=== PATIENT | female | born 1955 | race Caucasian/White ===

== ENCOUNTER 2024-09-16 09:52 | Inpatient (IN) | payer OTHER ==
[~2024-09-16] VITALS: Ht 162.6 cm; Wt 63.0 kg
[2024-09-16 11:02] LABS: Urine Bacteria FEW /hpf (None Seen); Urine Blood 1+ /uL (Negative); Urine Clarity Clear (Clear); Urine Color Light-Yellow (Yellow); Urine Protein, UAD 2+ (Negative); Urine Specific Gravity 1.018 (1.001-1.035); Urine Urobilinogen Normal (Negative); Urine WBC 62 /hpf (0 - 5); Urine pH 5.5 (5.0-9.0)
[2024-09-16 11:10] LABS: Basophils # (auto) 0 10 ^3/uL (0-0.2); Eosinophils # (auto) 0.1 10 ^3/uL (0-0.8); Eosinophils % (auto) 0.7 % (0.0-7.0); Hemoglobin 8.1 g/dL (12.2-16.2); Mean Corpuscular Volume 87.2 fL (80.0-100.0); Neutrophils # (auto) 7.1 10 ^3/uL (1.6-8.6); Platelet Count (auto) 146 10^3/uL (140-450); White Blood Cell 8.6 10^3/uL (4.4-10.8)
[2024-09-16 11:12] VITALS: PULSE 99; RESP 16; O2SAT 98
[2024-09-16 11:13] LABS: Basophils % (auto) 0.3 % (0.0-2.0); Hematocrit 23.1 % (36.0-46.0); Lymphocytes # (auto) 0.8 10 ^3/uL (0.4-5.4); Lymphocytes % (auto) 8.8 % (10.0-50.0); Mean Corpuscular Hemoglobin 30.7 pg (28.0-32.0); Mean Corpuscular Hgb Conc. 35.2 g/dL (32.0-36.0); Monocytes # (auto) 0.7 10 ^3/uL (0-1.3); Monocytes % (auto) 7.7 % (0.0-12.0); Neutrophils % (auto) 82.5 % (37.0-80.0); Red Blood Cells 2.65 10^6/uL (4.0-5.20); Red Cell Distribution Width 14.6 % (11.8-14.3)
[2024-09-16 11:18] LABS: Albumin 4.1 g/dL (3.2-4.8); Alkaline Phosphatase 77 U/L (46-116); Anion Gap 12 (5-15); Aspartate Aminotransferase 14 U/L (13-40); Blood Urea Nitrogen 66 mg/dL (9-23); Carbon Dioxide 23 mmol/L (20-31); Chloride 92 mmol/L (98-107); Glucose 112 mg/dL (74-106); Potassium 4.1 mmol/L (3.5-5.1); Sodium 127 mmol/L (136-145)
[2024-09-16 11:19] LABS: Bilirubin, Total 0.5 mg/dL (0.2-1.0); Total Protein 9.7 g/dL (5.7-8.2)
[2024-09-16 11:20] LABS: Alanine Aminotransferase < 9 U/L (7-40)
[2024-09-16 11:22] LABS: Calcium 18.2 mg/dL (8.7-10.4)
[2024-09-16] MEDS: ONDANSETRON HCL 4 MG/2 ML VIAL IV ONE (11:22)
[2024-09-16] MEDS: SODIUM CHLORIDE 0.9% 1,000 ML IVB ONE (11:22)
[2024-09-16] MEDS: SODIUM CHLORIDE 0.9% 1,000 ML IV ONE (15:14)
[2024-09-16] MEDS: cefTRIAXone 1GM/50ML D5W 50 ML IV ONE (15:15)
[2024-09-16] MEDS: CALCITONIN 400unit/2ml Vial (200unit/ml) IM SCH (15:41)
[2024-09-16 15:55] LABS: Alkaline Phosphatase 73 U/L (46-116); Anion Gap 9 (5-15); Aspartate Aminotransferase 13 U/L (13-40); BUN/Creatinine Ratio 12.2 (10.0-20.0); Carbon Dioxide 23 mmol/L (20-31); Chloride 95 mmol/L (98-107); Glucose 153 mg/dL (74-106); Sodium 127 mmol/L (136-145)
[2024-09-16 15:56] LABS: Bilirubin, Total 0.4 mg/dL (0.2-1.0); Total Protein 9.2 g/dL (5.7-8.2)
[2024-09-16 16:09] LABS: Alanine Aminotransferase < 9 U/L (7-40); Blood Urea Nitrogen 56 mg/dL (9-23)
[2024-09-16 16:10] LABS: Calcium 17.6 mg/dL (8.7-10.4)
[2024-09-16] MEDS ORDERED: HYDROmorphone HCL 2 MG/ML VL/or syr IV PRN (16:45)
[2024-09-16 17:20] VITALS: PULSE 112; RESP 14; O2SAT 96
[2024-09-16 19:38] VITALS: PULSE 109; RESP 14; O2SAT 95
[2024-09-16 19:55] LABS: Chloride 99 mmol/L (98-107); Potassium 3.9 mmol/L (3.5-5.1); Sodium 131 mmol/L (136-145)
[2024-09-16 19:56] LABS: Anion Gap 12 (5-15); Carbon Dioxide 20 mmol/L (20-31)
[2024-09-16 20:01] LABS: BUN/Creatinine Ratio 13.7 (10.0-20.0); Blood Urea Nitrogen 58 mg/dL (9-23); Glucose 116 mg/dL (74-106)
[2024-09-16 20:23] LABS: Calcium 14.4 mg/dL (8.7-10.4)
[2024-09-16] MEDS: SODIUM BICARB 50mEq/50ml Vial 50 ML in SOD CHL 0.45% 1,000 ML IV SCH (22:00)
[2024-09-16] MEDS: SODIUM CHLOR 0.9% PF (SALINE LOCK) 10ML VIAL/SYR IV SCH (22:07)
[2024-09-16 22:50] VITALS: PULSE 110; RESP 15; O2SAT 96
[2024-09-16 23:26] LABS: Chloride 101 mmol/L (98-107); Potassium 4.2 mmol/L (3.5-5.1); Sodium 131 mmol/L (136-145)
[2024-09-16 23:27] LABS: Anion Gap 9 (5-15); Carbon Dioxide 21 mmol/L (20-31)
[2024-09-16 23:32] LABS: BUN/Creatinine Ratio 12.9 (10.0-20.0); Blood Urea Nitrogen 55 mg/dL (9-23); Glucose 107 mg/dL (74-106)
[2024-09-17] VITALS (17 sets, daily range): BP systolic 107–129; BP diastolic 54–69; PULSE 95–110; RESP 14–19; TEMP 98–98.8; O2SAT 94–98
[2024-09-17 00:08] LABS: Calcium 14.4 mg/dL (8.7-10.4)
[2024-09-17] MEDS: ONDANSETRON HCL 4 MG/2 ML VIAL IV PRN (01:12)
[2024-09-17 03:41] LABS: Basophils # (auto) 0 10 ^3/uL (0-0.2); Eosinophils # (auto) 0.1 10 ^3/uL (0-0.8); Hematocrit 18.9 % (36.0-46.0); Lymphocytes # (auto) 0.5 10 ^3/uL (0.4-5.4); Monocytes # (auto) 0.5 10 ^3/uL (0-1.3); Monocytes % (auto) 6.8 % (0.0-12.0); Red Cell Distribution Width 14.3 % (11.8-14.3)
[2024-09-17 03:42] LABS: Basophils % (auto) 0.4 % (0.0-2.0); Eosinophils % (auto) 0.8 % (0.0-7.0); Lymphocytes % (auto) 6.6 % (10.0-50.0); Mean Corpuscular Hemoglobin 31.6 pg (28.0-32.0); Mean Corpuscular Hgb Conc. 36.1 g/dL (32.0-36.0); Mean Corpuscular Volume 87.4 fL (80.0-100.0); Neutrophils # (auto) 6.4 10 ^3/uL (1.6-8.6); Neutrophils % (auto) 85.4 % (37.0-80.0); Platelet Count (auto) 94 10^3/uL (140-450); Red Blood Cells 2.16 10^6/uL (4.0-5.20); White Blood Cell 7.5 10^3/uL (4.4-10.8)
[2024-09-17 03:59] LABS: Chloride 102 mmol/L (98-107); Sodium 132 mmol/L (136-145)
[2024-09-17 04:00] LABS: Anion Gap 8 (5-15); Carbon Dioxide 22 mmol/L (20-31)
[2024-09-17 04:05] LABS: Blood Urea Nitrogen 54 mg/dL (9-23); Glucose 107 mg/dL (74-106)
[2024-09-17 04:08] LABS: Hemoglobin 6.8 g/dL (12.2-16.2)
[2024-09-17 04:11] LABS: Platelet Estimate Decreased
[2024-09-17] MEDS: cefTRIAXone 1GM/50ML D5W 50 ML IV SCH (09:09)
[2024-09-17 11:47] LABS: Anion Gap 10 (5-15); Carbon Dioxide 23 mmol/L (20-31); Chloride 99 mmol/L (98-107); Potassium 3.8 mmol/L (3.5-5.1); Sodium 132 mmol/L (136-145)
[2024-09-17 11:53] LABS: BUN/Creatinine Ratio 12.7 (10.0-20.0); Blood Urea Nitrogen 50 mg/dL (9-23); Glucose 146 mg/dL (74-106)
[2024-09-17 12:09] LABS: Calcium 13.9 mg/dL (8.7-10.4)
[2024-09-17] MEDS: BUMETANIDE 2.5mg/10ml (0.25 mg/ml) INJ IV ONE (14:00)
[2024-09-17] MEDS: POTASSIUM EFFERVESENT TAB 25 MEQ PO ONE (14:00)
[2024-09-17 16:19] LABS: Hematocrit 24.6 % (36.0-46.0); Hemoglobin 8.4 g/dL (12.2-16.2)
[2024-09-17] MEDS: CALCITONIN 400unit/2ml Vial (200unit/ml) SC SCH (16:30)
[2024-09-17 16:32] LABS: Creatinine, Urine 30.26 mg/dL (30.0-125.0); Creatinine, Urine 30.78 mg/dL (30.0-125.0); Urine Protein/Creatinine Ratio 7.37
[2024-09-18] VITALS (16 sets, daily range): BP systolic 121–145; BP diastolic 61–114; PULSE 93–108; RESP 16–24; TEMP 97.7–99; O2SAT 90–97
[2024-09-18 05:51] LABS: Basophils # (auto) 0 10 ^3/uL (0-0.2); Basophils % (auto) 0.3 % (0.0-2.0); Eosinophils # (auto) 0 10 ^3/uL (0-0.8); Eosinophils % (auto) 0.6 % (0.0-7.0); Hemoglobin 7.9 g/dL (12.2-16.2); Lymphocytes # (auto) 0.4 10 ^3/uL (0.4-5.4); Lymphocytes % (auto) 6.3 % (10.0-50.0); Mean Corpuscular Hgb Conc. 34.9 g/dL (32.0-36.0); Monocytes # (auto) 0.4 10 ^3/uL (0-1.3); Neutrophils # (auto) 5.8 10 ^3/uL (1.6-8.6); Red Cell Distribution Width 14.4 % (11.8-14.3); White Blood Cell 6.7 10^3/uL (4.4-10.8)
[2024-09-18 05:54] LABS: Anion Gap 12 (5-15); Carbon Dioxide 25 mmol/L (20-31); Chloride 97 mmol/L (98-107); Hematocrit 22.7 % (36.0-46.0); Mean Corpuscular Hemoglobin 30.7 pg (28.0-32.0); Mean Corpuscular Volume 87.9 fL (80.0-100.0); Monocytes % (auto) 6.4 % (0.0-12.0); Neutrophils % (auto) 86.4 % (37.0-80.0); Nucleated Red Blood Cells % 0.1 %; Platelet Count (auto) 92 10^3/uL (140-450); Potassium 3.7 mmol/L (3.5-5.1); Red Blood Cells 2.58 10^6/uL (4.0-5.20); Sodium 134 mmol/L (136-145)
[2024-09-18 06:00] LABS: BUN/Creatinine Ratio 12.8 (10.0-20.0); Blood Urea Nitrogen 50 mg/dL (9-23); Glucose 107 mg/dL (74-106)
[2024-09-18] MEDS: BUMETANIDE 2.5mg/10ml (0.25 mg/ml) INJ IV ONE (13:46)
[2024-09-18] MEDS: PROMETHAZINE HCL 6.25 MG/5 ML ORAL SYRUP PO PRN (16:13)
[2024-09-18] MEDS: SODIUM CHL 0.9% IV ONE (18:38)
[2024-09-18] MEDS: PAMIDRONATE DISODIUM IV ONE (18:38)
[2024-09-18] MEDS: DOCUSATE SOD 100 MG CAP PO PRN (22:15)
[2024-09-19] VITALS (25 sets, daily range): BP systolic 110–140; BP diastolic 48–87; PULSE 83–108; RESP 13–23; TEMP 97.6–98.6; O2SAT 92–98
[2024-09-19] MEDS: ACETAMINOPHEN 325 MG TAB PO PRN (04:19)
[2024-09-19 05:00] LABS: Basophils # (auto) 0 10 ^3/uL (0-0.2); Eosinophils # (auto) 0.1 10 ^3/uL (0-0.8); Lymphocytes # (auto) 0.5 10 ^3/uL (0.4-5.4); Monocytes # (auto) 0.6 10 ^3/uL (0-1.3); Neutrophils # (auto) 5.9 10 ^3/uL (1.6-8.6); White Blood Cell 7.1 10^3/uL (4.4-10.8)
[2024-09-19 05:03] LABS: Basophils % (auto) 0.3 % (0.0-2.0); Eosinophils % (auto) 1.7 % (0.0-7.0); Hematocrit 22.6 % (36.0-46.0); Hemoglobin 8.1 g/dL (12.2-16.2); Lymphocytes % (auto) 6.9 % (10.0-50.0); Mean Corpuscular Hemoglobin 31.2 pg (28.0-32.0); Mean Corpuscular Hgb Conc. 35.9 g/dL (32.0-36.0); Mean Corpuscular Volume 87.1 fL (80.0-100.0); Monocytes % (auto) 8.1 % (0.0-12.0); Platelet Count (auto) 89 10^3/uL (140-450); Red Blood Cells 2.59 10^6/uL (4.0-5.20); Red Cell Distribution Width 14.5 % (11.8-14.3)
[2024-09-19 05:12] LABS: Chloride 95 mmol/L (98-107); Potassium 3.3 mmol/L (3.5-5.1); Sodium 132 mmol/L (136-145)
[2024-09-19 05:13] LABS: Anion Gap 10 (5-15); Carbon Dioxide 27 mmol/L (20-31)
[2024-09-19 05:18] LABS: BUN/Creatinine Ratio 11.6 (10.0-20.0); Blood Urea Nitrogen 44 mg/dL (9-23); Glucose 111 mg/dL (74-106)
[2024-09-19 05:40] LABS: Calcium 14.1 mg/dL (8.7-10.4)
[2024-09-19] MEDS: POTASSIUM EFFERVESENT TAB 25 MEQ PO ONE (11:09)
[2024-09-19] MEDS: SODIUM CHLORIDE 0.9% 1,000 ML IV SCH (13:03)
[2024-09-19 14:29] LABS: Basophils # (auto) 0 10 ^3/uL (0-0.2); Basophils % (auto) 0.6 % (0.0-2.0); Eosinophils # (auto) 0.1 10 ^3/uL (0-0.8); Eosinophils % (auto) 1.2 % (0.0-7.0); Hematocrit 24.2 % (36.0-46.0); Hemoglobin 8.3 g/dL (12.2-16.2); Lymphocytes # (auto) 0.6 10 ^3/uL (0.4-5.4); Lymphocytes % (auto) 7.3 % (10.0-50.0); Mean Corpuscular Hemoglobin 30.3 pg (28.0-32.0); Mean Corpuscular Hgb Conc. 34.4 g/dL (32.0-36.0); Mean Corpuscular Volume 87.9 fL (80.0-100.0); Monocytes # (auto) 0.4 10 ^3/uL (0-1.3); Monocytes % (auto) 5.4 % (0.0-12.0); Neutrophils # (auto) 6.7 10 ^3/uL (1.6-8.6); Neutrophils % (auto) 85.5 % (37.0-80.0); Platelet Count (auto) 100 10^3/uL (140-450); Red Blood Cells 2.76 10^6/uL (4.0-5.20); Red Cell Distribution Width 14.6 % (11.8-14.3); White Blood Cell 7.8 10^3/uL (4.4-10.8)
[2024-09-19 14:42] LABS: Anion Gap 8 (5-15); Carbon Dioxide 28 mmol/L (20-31); Chloride 94 mmol/L (98-107); Potassium 4.6 mmol/L (3.5-5.1); Sodium 130 mmol/L (136-145)
[2024-09-19] MEDS: methylPREDNISolone SOD SUCC 125 MG/2 ML VL IV SCH (14:43)
[2024-09-19 14:48] LABS: BUN/Creatinine Ratio 11.1 (10.0-20.0); Blood Urea Nitrogen 42 mg/dL (9-23); Glucose 169 mg/dL (74-106)
[2024-09-19 14:57] LABS: Calcium 14.5 mg/dL (8.7-10.4)
[2024-09-19] MEDS ORDERED: ONDANSETRON HCL 4 MG/2 ML VIAL IV PRN (16:15)
[2024-09-19] MEDS: CALCITONIN 400unit/2ml Vial (200unit/ml) SC ONE (21:30)
[2024-09-19] MEDS: PROMETHAZINE HCL 6.25 MG/5 ML ORAL SYRUP PO PRN (21:38)
[2024-09-20] VITALS (24 sets, daily range): BP systolic 110–164; BP diastolic 45–83; PULSE 92–119; RESP 16–29; TEMP 96.6–98.3; O2SAT 87–97
[2024-09-20 06:13] LABS: Basophils # (auto) 0 10 ^3/uL (0-0.2); Basophils % (auto) 0.1 % (0.0-2.0); Eosinophils # (auto) 0 10 ^3/uL (0-0.8); Hemoglobin 7.6 g/dL (12.2-16.2); Monocytes # (auto) 0.3 10 ^3/uL (0-1.3); White Blood Cell 7.7 10^3/uL (4.4-10.8)
[2024-09-20 06:15] LABS: Hematocrit 22.1 % (36.0-46.0); Lymphocytes # (auto) 0.3 10 ^3/uL (0.4-5.4); Lymphocytes % (auto) 4.4 % (10.0-50.0); Mean Corpuscular Hemoglobin 30.2 pg (28.0-32.0); Mean Corpuscular Hgb Conc. 34.3 g/dL (32.0-36.0); Mean Corpuscular Volume 88.3 fL (80.0-100.0); Monocytes % (auto) 3.4 % (0.0-12.0); Neutrophils # (auto) 7.1 10 ^3/uL (1.6-8.6); Neutrophils % (auto) 92.1 % (37.0-80.0); Nucleated Red Blood Cells % 0.1 %; Platelet Count (auto) 87 10^3/uL (140-450); Red Cell Distribution Width 14.3 % (11.8-14.3)
[2024-09-20 06:16] LABS: Chloride 99 mmol/L (98-107); Potassium 4.7 mmol/L (3.5-5.1); Sodium 130 mmol/L (136-145)
[2024-09-20 06:17] LABS: Anion Gap 7 (5-15); Calcium 12.8 mg/dL (8.7-10.4); Carbon Dioxide 24 mmol/L (20-31)
[2024-09-20 06:22] LABS: Blood Urea Nitrogen 43 mg/dL (9-23); Glucose 164 mg/dL (74-106)
[2024-09-20] MEDS: FUROSEMIDE 20 MG/2 ML VIAL IV ONE ×2 (10:43→19:38)
[2024-09-20] MEDS: HYDROcodone-ACET 5/325MG TAB PO PRN (10:53)
[2024-09-20] MEDS: CALCITONIN 400unit/2ml Vial (200unit/ml) SC ONE (15:14)
[2024-09-20] MEDS: SODIUM CHLORIDE 0.9% 1,000 ML IV SCH (17:02)
[2024-09-20] MEDS: LORazepam 2MG/ML-1ML VIAL IV PRN (22:16)
[2024-09-21] VITALS (39 sets, daily range): BP systolic 113–144; BP diastolic 51–82; PULSE 74–149; RESP 13–52; TEMP 97.6–98.2; O2SAT 92–98
[2024-09-21 05:01] LABS: Basophils # (auto) 0 10 ^3/uL (0-0.2); Eosinophils # (auto) 0 10 ^3/uL (0-0.8); Lymphocytes # (auto) 0.2 10 ^3/uL (0.4-5.4); Mean Corpuscular Volume 88.9 fL (80.0-100.0); Monocytes # (auto) 0.3 10 ^3/uL (0-1.3); Neutrophils # (auto) 7.1 10 ^3/uL (1.6-8.6); White Blood Cell 7.6 10^3/uL (4.4-10.8)
[2024-09-21 05:03] LABS: Hematocrit 21.5 % (36.0-46.0); Hemoglobin 7.2 g/dL (12.2-16.2); Lymphocytes % (auto) 2.8 % (10.0-50.0); Mean Corpuscular Hemoglobin 29.9 pg (28.0-32.0); Mean Corpuscular Hgb Conc. 33.7 g/dL (32.0-36.0); Monocytes % (auto) 3.7 % (0.0-12.0); Neutrophils % (auto) 93.5 % (37.0-80.0); Platelet Count (auto) 86 10^3/uL (140-450); Red Blood Cells 2.42 10^6/uL (4.0-5.20); Red Cell Distribution Width 14.7 % (11.8-14.3)
[2024-09-21 05:08] LABS: Chloride 99 mmol/L (98-107); Potassium 4.5 mmol/L (3.5-5.1); Sodium 132 mmol/L (136-145)
[2024-09-21 05:09] LABS: Anion Gap 10 (5-15); Calcium 11.6 mg/dL (8.7-10.4); Carbon Dioxide 23 mmol/L (20-31)
[2024-09-21 05:14] LABS: BUN/Creatinine Ratio 13.9 (10.0-20.0); Glucose 122 mg/dL (74-106)
[2024-09-21 05:24] LABS: Blood Urea Nitrogen 56 mg/dL (9-23)
[2024-09-21] MEDS ORDERED: OMEP20TA PO (10:54)
[2024-09-21] MEDS ORDERED: ACYC200C22 PO (10:54)
[2024-09-21] MEDS ORDERED: METOCLOPRAMIDE HCL 5MG/ml INJ 2ml VIAL IV SCH (14:00)
[2024-09-21] MEDS ORDERED: METOPROLOL TARTRATE 1MG/1ML-5ML VIAL IV ONE (14:15)
[2024-09-21] MEDS: AMIODARONE BOLUS KIT 100 ML IV ONE (14:47)
[2024-09-21] MEDS: AMIODARONE 450mg/250ml AE 250 ML IV SCH ×2 (14:52→20:25)
[2024-09-21 15:47] LABS: INR 1.18 (0.9-1.15); Partial Thromboplastin Time 24.9 SEC (24.5-34.5); Prothrombin Time 12.4 sec (9.3-11.8)
[2024-09-21] MEDS: LORazepam 2MG/ML-1ML VIAL IV ONE (17:08)
[2024-09-21] MEDS: LIDOCAINE 2%HCL (LOCAL ANESTH.) INJ 10ml MDV IJ ONE (19:46)
[2024-09-21] MEDS: LIDOCAINE 2% (LOCAL ANESTH.) PF 5ml SDV ONE (19:46)
[2024-09-21] MEDS: MORPHINE SULFATE INJ 2 MG/ml SYRG IV ONE (20:51)
[2024-09-22] VITALS (54 sets, daily range): BP systolic 111–150; BP diastolic 61–97; PULSE 74–99; RESP 13–32; TEMP 97.5–98.3; O2SAT 94–100
[2024-09-22 05:18] LABS: Basophils # (auto) 0 10 ^3/uL (0-0.2); Basophils % (auto) 0.1 % (0.0-2.0); Eosinophils # (auto) 0 10 ^3/uL (0-0.8); Hematocrit 21.6 % (36.0-46.0); Hemoglobin 7.2 g/dL (12.2-16.2); Lymphocytes # (auto) 0.2 10 ^3/uL (0.4-5.4); Lymphocytes % (auto) 3.5 % (10.0-50.0); Mean Corpuscular Hemoglobin 29.9 pg (28.0-32.0); Mean Corpuscular Hgb Conc. 33.2 g/dL (32.0-36.0); Mean Corpuscular Volume 90.2 fL (80.0-100.0); Monocytes # (auto) 0.2 10 ^3/uL (0-1.3); Monocytes % (auto) 3.3 % (0.0-12.0); Neutrophils # (auto) 5.9 10 ^3/uL (1.6-8.6); Neutrophils % (auto) 93.1 % (37.0-80.0); Platelet Count (auto) 95 10^3/uL (140-450); Red Blood Cells 2.39 10^6/uL (4.0-5.20); Red Cell Distribution Width 15.2 % (11.8-14.3); White Blood Cell 6.3 10^3/uL (4.4-10.8)
[2024-09-22 05:22] LABS: Chloride 101 mmol/L (98-107); Potassium 4.6 mmol/L (3.5-5.1); Sodium 132 mmol/L (136-145)
[2024-09-22 05:23] LABS: Anion Gap 10 (5-15); Calcium 11.1 mg/dL (8.7-10.4); Carbon Dioxide 21 mmol/L (20-31)
[2024-09-22 05:28] LABS: BUN/Creatinine Ratio 15.6 (10.0-20.0); Blood Urea Nitrogen 64 mg/dL (9-23); Glucose 138 mg/dL (74-106)
[2024-09-22] MEDS: methylPREDNISolone SOD SUCC 125 MG/2 ML VL IV SCH (08:30)
[2024-09-22] MEDS ORDERED: POLYETHYLENE GLYCOL 17 GM PWDR PEG SCH (10:00)
[2024-09-22] MEDS: CALCITONIN 200 UNIT/SPRAY NASAL ONE (10:50)
[2024-09-22] MEDS: MAGNESIUM SULFATE 1GM/100ML 100 ML IV SCH (10:50)
[2024-09-22] MEDS: NIFEdipine ER 30 MG TAB PO SCH (10:51)
[2024-09-22] MEDS: FUROSEMIDE 40 MG TAB PO SCH (10:51)
[2024-09-22 10:55] LABS: LDL Cholesterol 55 mg/dL (< 100); Triglycerides 114 mg/dL (< 150)
[2024-09-22 10:56] LABS: HDL Cholesterol 39 mg/dL (40-59)
[2024-09-22 10:57] LABS: Cholesterol 111 mg/dL (< 200)
[2024-09-22 11:24] LABS: Free T3 3.18 pg/mL (2.3-4.2); Free T4 (Free Thyroxine) 1.81 ng/dL (0.89-1.76)
[2024-09-22] MEDS: ASPirin 81 mg TAB PO ONE (11:30)
[2024-09-22] MEDS: AMIODARONE HCL 200 MG TAB PO ONE (12:14)
[2024-09-22] MEDS: methIMAzole 5 MG TAB PO SCH (14:50)
[2024-09-22] MEDS: AMIODARONE HCL 200 MG TAB PO SCH (21:35)
[2024-09-22] MEDS ORDERED: methIMAzole 5 MG TAB PO SCH (22:00)
[2024-09-23] VITALS (8 sets, daily range): BP systolic 112–140; BP diastolic 65–74; PULSE 85–95; RESP 16–18; TEMP 97.4–98.1; O2SAT 96–97
[2024-09-23 05:43] LABS: Basophils # (auto) 0 10 ^3/uL (0-0.2); Basophils % (auto) 0.1 % (0.0-2.0); Eosinophils # (auto) 0 10 ^3/uL (0-0.8); Hematocrit 20.2 % (36.0-46.0); Lymphocytes # (auto) 0.1 10 ^3/uL (0.4-5.4); Lymphocytes % (auto) 1.8 % (10.0-50.0); Mean Corpuscular Hgb Conc. 33.2 g/dL (32.0-36.0); Mean Corpuscular Volume 90.3 fL (80.0-100.0); Monocytes # (auto) 0.2 10 ^3/uL (0-1.3); Monocytes % (auto) 3.7 % (0.0-12.0); Neutrophils # (auto) 6.3 10 ^3/uL (1.6-8.6); Neutrophils % (auto) 94.4 % (37.0-80.0); Nucleated Red Blood Cells % 0.1 %; Platelet Count (auto) 91 10^3/uL (140-450); Red Blood Cells 2.24 10^6/uL (4.0-5.20); Red Cell Distribution Width 15.1 % (11.8-14.3); White Blood Cell 6.6 10^3/uL (4.4-10.8)
[2024-09-23 05:47] LABS: Hemoglobin 6.7 g/dL (12.2-16.2)
[2024-09-23 06:01] LABS: Alanine Aminotransferase 11 U/L (7-40); Alkaline Phosphatase 63 U/L (46-116); Anion Gap 11 (5-15); Aspartate Aminotransferase 11 U/L (13-40); Bilirubin, Total < 0.2 mg/dL (0.2-1.0); Calcium 10.4 mg/dL (8.7-10.4); Carbon Dioxide 19 mmol/L (20-31); Chloride 102 mmol/L (98-107); Glucose 119 mg/dL (74-106); Potassium 4.4 mmol/L (3.5-5.1); Sodium 132 mmol/L (136-145); Total Protein 6.6 g/dL (5.7-8.2)
[2024-09-23 06:20] LABS: Blood Urea Nitrogen 79 mg/dL (9-23)
[2024-09-23] MEDS: ASPirin 81 mg TAB PO SCH (09:32)
[2024-09-23] MEDS: METOPROLOL SUCCINATE XL 50 MG TAB PO SCH (09:33)
[2024-09-23] MEDS ORDERED: METH5TAB98 PO (13:32)
[2024-09-23] MEDS ORDERED: AMIO200T43 PO (13:32)
[2024-09-23] MEDS ORDERED: CALC200S4 (13:59)
[2024-09-24 08:06] LABS: Immunoglobulin A 1831 mg/dL (87-352); Immunoglobulin G, Serum 341 mg/dL (586-1602); Immunoglobulin M 12 mg/dL (26-217)
== END 2024-09-23 16:20 | disposition home or self-care (01) | DRG 840 ==
LOC: ER 09:52 → TELE 16:36 → DOU IN ICU 09-18 05:15 → WEST WING 09-22 18:07 → TELE-WESTW 09-22 18:16
PROVIDERS: ADMIT Internal Medicine; ATTEND Emergency Medicine
PROC: 30233N1 Transfusion of Nonautologous Red Blood Cells into Peripheral Vein, Percutaneous Approach (ICD-10-PCS; principal; 2024-09-17)
PROC: 02H633Z Insertion of Infusion Device into Right Atrium, Percutaneous Approach (ICD-10-PCS; 2024-09-21)
PROC: B548ZZA Ultrasonography of Superior Vena Cava, Guidance (ICD-10-PCS; 2024-09-21)
DX: C90.00 Multiple myeloma not having achieved remission (principal); I21.A1 Myocardial infarction type 2; J96.01 Acute respiratory failure with hypoxia; E87.1 Hypo-osmolality and hyponatremia; E87.20 Acidosis, unspecified; J90 Pleural effusion, not elsewhere classified; E44.0 Moderate protein-calorie malnutrition; Z68.1 Body mass index [BMI] 19.9 or less, adult; C41.9 Malignant neoplasm of bone and articular cartilage, unspecified; C78.4 Secondary malignant neoplasm of small intestine; K86.2 Cyst of pancreas; I12.0 Hypertensive chronic kidney disease with stage 5 chronic kidney disease or end stage renal disease; N18.5 Chronic kidney disease, stage 5; N17.9 Acute kidney failure, unspecified; E83.52 Hypercalcemia; E86.0 Dehydration; R19.09 Other intra-abdominal and pelvic swelling, mass and lump; D89.2 Hypergammaglobulinemia, unspecified; D25.9 Leiomyoma of uterus, unspecified; E27.8 Other specified disorders of adrenal gland; M89.78 Major osseous defect, other site; D69.6 Thrombocytopenia, unspecified; E05.90 Thyrotoxicosis, unspecified without thyrotoxic crisis or storm; E83.42 Hypomagnesemia; N28.1 Cyst of kidney, acquired; D63.0 Anemia in neoplastic disease; D35.02 Benign neoplasm of left adrenal gland; E03.9 Hypothyroidism, unspecified; N83.201 Unspecified ovarian cyst, right side; K21.9 Gastro-esophageal reflux disease without esophagitis; I48.91 Unspecified atrial fibrillation; Z83.3 Family history of diabetes mellitus; Z82.49 Family history of ischemic heart disease and other diseases of the circulatory system; Z80.3 Family history of malignant neoplasm of breast; Z82.3 Family history of stroke
CPT/HCPCS: 36415; 71045; 74176; 76775; 77074; 80048; 80053; 80061; 81001; 82306; 82310; 82570; 82784; 83036; 83521; 83615; 83735; 83930; 83970; 84155; 84156; 84165; 84300; 84439; 84443; 84480; 84481; 84484; 84550; 85014; 85018; 85025; 85379; 85610; 85730; 86334; 86703; 86706; 86803; 86850; 86880; 86900; 86901; 86920; 87081; 87086; 87340; 93005; 93306; 93970; 97110; 97163; 99291; G0378; J2003; J2405

== ENCOUNTER 2024-10-06 11:04 | Inpatient (IN) | payer OTHER ==
[~2024-10-06] VITALS: Ht 175.3 cm; Wt 51.1 kg
[~2024-10-06 11:04] MED LIST: AMIO200T43 PO; CALC200S4; METH5TAB98 PO; OMEP20TA PO
--- NOTE | 2024-10-06 11:36 | ED.PDOC ---
History of Present Illness HPI Comments 69 y/o F presents with c/o abnormal labs, today. Patient is a poor historian and informs on being sent by her PCP, Dr. Areli Jernigan, after her recent lab drawn results showed abnormal findings in addition to patient being reported of having an episode of confusion, speech difficulty, and "drooling," yesterday, that has since subsided. At time of evaluation, patient comments on her "calcium" being "hi and low" and only endorses on having "constipation." [facility], patient has a significant Hx that includes: AFIB, MARTINEZ on CKD, acute hypoxic respiratory failure, hypercalcemia, hypertonic, hyponatremia, hypothyroidism, metabolic acidosis, moderate malnutrition, metastatic multiple myeloma, NSTEMI II, normocytic anemia, left lung pleural-based mass, cystic focus in head of pancreas, left adrenal glad nodule, UTI's, and marijuana use. Patient states on no recent stress, injuries, sick contact, travel, spoiled food intake, or sub stance use/exposure. Patient endorses no additional relevant or pertinent past medical, surgical, or family Hx. Patient denies having any chest pain, shortness of breath, weakness, dizziness, nausea, vomiting, fever, chills, or other associated symptoms or modifiers at this time. Time Seen by MD: 11:15 Primary Care Provider: Dr. Areli Jernigan Reviewed Notes: Nurses Notes, Medications, Allergies Allergies: Coded Allergies: NO KNOWN ALLERGIES (Unverified , 09/16/24) Home Meds Active Scripts Calcitonin ([place]) (Calcitonin [place]) 200 Unit/Act Spr, 200 UNIT NA DAILY for 14 Days, #10 BOTTLE 1 SPRAY INTO ALTERNATE NOSTRIL DAILY Prov:KAITLYNN MAJOR RESIDENT 09/23/24 Amiodarone HCl (Amiodarone Hydrocloride) 200 Mg Tab, 200 MG PO BID for 30 Days, #60 TAB Prov:KAITLYNN MAJOR RESIDENT 09/23/24 Methimazole (Methimazole) 5 Mg Tab, 5 MG PO TID for 30 Days, #90 TAB Prov:KAITLYNN MAJOR RESIDENT 09/23/24 Reported Medications Omeprazole (Gnp Omeprazole) 20 Mg Tab, 20 MG PO, TAB 09/21/24 Information Source: Patient Mode of Arrival: Ambulatory Severity: Moderate Timing: Hours Duration: Since onset Prehospital treatment: Other (see HPI) Past Medical History PAST MEDICAL HISTORY: AFIB, Anemia (normocytic), Cancer (metastatic multiple myeloma), CKF, CA (NSTEMI type 2), Thyroid (hypothyroidism,), UTI'S Past Medical History (Other): MARTINEZ, acute hypoxic respiratory failure, hypercalcemia, hypertonic hyponatremia, metabolic acidosis, moderate malnutrition, left lung pleural-based mass, cystic focus in head of pancrease, left adrenal glad nodule Surgical History: Denies all surgeries DIGITAL MEDIA COORDINATOR History: Denies all DIGITAL MEDIA COORDINATOR Hx Family History Family History: Unknown Social History Smoker: Non-Smoker Alcohol: Denies ETOH Use Drugs: Marijuana Lives In: Home Constitutional: denies: chills, diaphoresis, fatigue, fever, malaise, sweats, weakness, others EENTM: denies: blurred vision, double vision, ear bleeding, ear discharge, ear drainage, ear pain, ear ringing, eye pain, eye redness, hearing loss, mouth pain, mouth swelling, nasal discharge, nose bleeding, nose congestion, nose pain, photophobia, tearing, throat pain, throat swelling, voice changes, others Respiratory: denies: cough, hemoptysis, orthopnea, SOB at rest, shortness of breath, SOB with excertion, stridor, wheezing, others Cardiovascular: denies: chest pain, dizzy spells, diaphoresis, Dyspnea on exertion, edema, irregular heart beat, left arm pain, lightheadedness, palpitations, PND, syncope, others Gastrointestinal: reports: constipated; denies: abdomen distended, abdominal pain, blood streaked bowels, diarrhea, dysphagia, difficulty swallowing, hematemesis, melena, nausea, poor appetite, poor fluid intake, rectal bleeding, rectal pain, vomiting, others Genitourinary: denies: abnormal vagina bleeding, burning, dyspareunia, dysuria, flank pain, frequency, hematuria, incontinence, pain, , vagina discharge, urgency, others Musculoskeletal: denies: back pain, gout, joint pain, joint swelling, muscle pain, muscle stiffness, neck pain, others Integumetry: denies: bruises, change in color, change in hair/nails, dryness, laceration, lesions, lumps, rash, wounds, others Allergic/Immunocompromised: denies: Difficulty Healing, Frequent Infections, Hives, Itching, others Hematologic/Lymphatic: reports: others (abnormal labs ); denies: anemia, blood clots, easy bleeding, easy bruising, swollen glands Endocrine: denies: excessive hunger, excessive sweating, excessive thirst, excessive urination, flushing, intolerance to cold, intolerance to heat, unexplained weight gain, unexplained weight loss, others Psychiatric: denies: anxiety, bipolar disorder, depression, hopeless, panic disorder, schizophrenia, sleepless, suicidal, others All Other Systems: Reviewed and Negative Physical Exam General Appearance: Moderate Distress HEENT: Normal ENT Inspection, Pharynx Normal, TMs Normal Neck: Full Range of Motion, Non-Tender, Normal, Normal Inspection Respiratory: Chest Non-Tender, Lungs Clear, No Accessory Muscle Use, No Respiratory Distress, Normal Breath Sounds Cardiovascular: No Edema, No JVD, No Murmur, No Gallop, Normal Peripheral Pulses, Regular Rate/Rhythm Breast Exam: Deferred Gastrointestinal: No Organomegaly, Non Tender, No Pulsatile Mass, Normal Bowel Sounds, Soft Genitalia: Deferred Pelvic: Deferred Rectal: Deferred Extremities: No calf tenderness, Normal capillary refill, Normal inspection, Normal range of motion, Non-tender, No pedal edema Musculoskeletal : Apperance: Normal Neurologic: general counselor II-XII nml as Tested, Motor Weakness, No Sensory Deficits, Other (The patient was somewhat altered) Cerebellar Function: Unable to Test Reflexes: Normal Skin: Dry, Normal Color, Warm Lymphatic: No Adenopathy Was a procedure done? Was a procedure done?: No EKG EKG : Pulse Rate (adult): 70 [place]: RAD Cardiac Rhythm: NSR Block: None Hypertrophy: ROGELIO ST: Normal Differential Dx Considerations may include: hypercalcemia, constipation, electrolyte imbalance, encephalopathy X-Ray, Labs, Meds, VS Vital Signs Date Time Temp Pulse Resp B/P (MAP) Pulse Ox O2 Delivery O2 Flow Rate FiO2 10/06/24 11:36 70 10/06/24 11:22 98.4 78 16 148/61 (90) 98 10/06/24 11:21 70 Lab Test 10/06/24 11:25 10/06/24 11:17 10/06/24 11:16 Range/Units White Blood Count 8.1 4.4-10.8 10^3/uL Red Blood Count 3.23 L 4.0-5.20 10^6/uL Hemoglobin 9.5 L 12.2-16.2 g/dL Hematocrit 28.6 L 36.0-46.0 % Mean Corpuscular Volume 88.7 80.0-100.0 fL Mean Corpuscular Hemoglobin 29.5 28.0-32.0 pg Mean Corpuscular Hemoglobin Concent 33.3 32.0-36.0 g/dL Red Cell Distribution Width 15.2 H 11.8-14.3 % Platelet Count 146 140-450 10^3/uL Mean Platelet Volume 7.3 6.9-10.8 fL Neutrophils (%) (Auto) 83.5 H 37.0-80.0 % Lymphocytes (%) (Auto) 8.6 L 10.0-50.0 % Monocytes (%) (Auto) 5.8 0.0-12.0 % Eosinophils (%) (Auto) 1.0 0.0-7.0 % Basophils (%) (Auto) 1.1 0.0-2.0 % Neutrophils # (Auto) 6.8 1.6-8.6 10 ^3/uL Lymphocytes # (Auto) 0.7 0.4-5.4 10 ^3/uL Monocytes # (Auto) 0.5 0-1.3 10 ^3/uL Eosinophils # (Auto) 0.1 0-0.8 10 ^3/uL Basophils # (Auto) 0.1 0-0.2 10 ^3/uL Nucleated Red Blood Cells 0.1 % Sodium Level 131 L 136-145 mmol/L Potassium Level 4.4 3.5-5.1 mmol/L Chloride Level 96 L 98-107 mmol/L Carbon Dioxide Level 25 20-31 mmol/L Anion Gap 10 5-15 Blood Urea Nitrogen 42 H 9-23 mg/dL Creatinine 5.23 H 0.550-1.02 mg/dL Glomerular Filtration Rate Calc 8 >90 mL/min BUN/Creatinine Ratio 8.0 L 10.0-20.0 Serum Glucose 92 74-106 mg/dL Calcium Level 11.0 H 8.7-10.4 mg/dL Urine Color Light-yellow Yellow Urine Clarity Clear Clear Urine pH 6.5 5.0-9.0 Urine Specific [place] 1.014 1.001-1.035 Urine Protein 2+ H Negative Urine Ketones Negative Negative Urine Blood Trace H Negative /uL Urine Nitrite Negative Negative Urine Bilirubin Negative Negative Urine Urobilinogen Normal Negative mg/dL Urine Leukocyte Esterase 2+ Negative /uL Urine RBC 1 0 - 4 /hpf Urine WBC 16 0 - 5 /hpf Urine Squamous Epithelial Cells Few <5 /hpf Urine Bacteria None seen None Seen /hpf Urine Glucose Normal Normal mg/dL POC Glucose 90 70-106 mg/dl PROCEDURE(s): HWOCT - HEAD WITHOUT CONTRAST IMPRESSION: No acute intracranial abnormality. The patient's CBC shows anemia with a hemoglobin of 9.5 and hematocrit of 28.6 The platelets are 146 The chemistry panel shows a BUN of 42 and a creatinine of 5.23 The urine test is positive for UTI The patient was given Rocephin 1 g IV piggyback The patient was being admitted to the hospitalist. Time of 1ST Reevaluation: 11:45 Reevaluation 1ST: Unchanged Patient Education/Counseling: Diagnosis, Treatment, Prognosis Family Education/Counseling: No Family Present Departure 1 Departure Time of Disposition: 13:05 Impression: Primary Impression: Generalized weakness Additional Impression: UTI (urinary tract infection) Qualified Codes: N30.00 - Acute cystitis without hematuria Disposition: ADMITTED INPATIENT Admit to: [facility] Condition: Fair Critical Care Note Critical Care Time?: No Stability Stability form required: Yes Unstable for transfer: Telemetry monitoring (Telemetry monitoring required), ED Physician Assesment (Clinical assesment) Heart Score Heart Score: Heart Score Response (Comments) Value History N/A 0 EKG N/A 0 Age N/A 0 Risk Factors N/A 0 Troponin N/A 0 Total 0 I personally scribed for LUIS CACERES MD ([email or web address]) on 10/06/24 at 11:36. Electronically submitted by Napoleon Bhatt ([email or web address]). I personally scribed for LUIS CACERES MD ([email or web address]) on 10/06/24 at 12:09. Electronically submitted by Napoleon Bhatt ([email or web address]). LUIS CACERES MD Oct 06, 2024 11:36
[2024-10-06 11:55] LABS: Basophils # (auto) 0.1 10 ^3/uL (0-0.2); Basophils % (auto) 1.1 % (0.0-2.0); Eosinophils # (auto) 0.1 10 ^3/uL (0-0.8); Hematocrit 28.6 % (36.0-46.0); Hemoglobin 9.5 g/dL (12.2-16.2); Lymphocytes # (auto) 0.7 10 ^3/uL (0.4-5.4); Lymphocytes % (auto) 8.6 % (10.0-50.0); Mean Corpuscular Hemoglobin 29.5 pg (28.0-32.0); Mean Corpuscular Hgb Conc. 33.3 g/dL (32.0-36.0); Mean Corpuscular Volume 88.7 fL (80.0-100.0); Monocytes # (auto) 0.5 10 ^3/uL (0-1.3); Monocytes % (auto) 5.8 % (0.0-12.0); Neutrophils # (auto) 6.8 10 ^3/uL (1.6-8.6); Neutrophils % (auto) 83.5 % (37.0-80.0); Nucleated Red Blood Cells % 0.1 %; Platelet Count (auto) 146 10^3/uL (140-450); Red Blood Cells 3.23 10^6/uL (4.0-5.20); Red Cell Distribution Width 15.2 % (11.8-14.3); White Blood Cell 8.1 10^3/uL (4.4-10.8)
[2024-10-06 11:57] LABS: Urine Bacteria None Seen /hpf (None Seen)
--- NOTE | 2024-10-06 12:04 | DVH ---
EXAM: CT HEAD WITHOUT CONTRAST INDICATION: weakness TECHNIQUE: CT of the head without intravenous contrast. Radiation Dose Information: CT Dose: CTDI volume is 55.87 mGy. Dose-length product is 1101.06 mGy*cm The dose indicators for CT are the volume Computed Tomography (CT) Dose Index (CTDIvol) and the Dose Length Product (DLP), and are measured in units of mGy and mGy-cm, respectively. These indicators are not patient dose, but values generated from the CT scanner acquisition factors. The report includes radiation exposure data for exposures received during this examination. COMPARISON: None FINDINGS: There is no evidence of acute intracranial hemorrhage, extra-axial collection, mass effect, midline s hift, herniation or hydrocephalus. The ventricles, sulci and cisterns are age appropriate. The camilo-white differentiation is intact. Patchy periventricular and subcortical white matter hypoattenuation is nonspecific but may be related to small vessel ischemic disease. The visualized paranasal sinuses and mastoid air cells are clear. The surrounding soft tissues and osseous structures are unremarkable. IMPRESSION: No acute intracranial abnormality.
[2024-10-06 12:09] LABS: Anion Gap 10 (5-15); Carbon Dioxide 25 mmol/L (20-31); Chloride 96 mmol/L (98-107); Potassium 4.4 mmol/L (3.5-5.1); Sodium 131 mmol/L (136-145)
[2024-10-06 12:13] LABS: Urine Blood TRACE /uL (Negative); Urine Clarity Clear (Clear); Urine Color Light-Yellow (Yellow); Urine Protein, UAD 2+ (Negative); Urine Specific Gravity 1.014 (1.001-1.035); Urine Urobilinogen Normal (Negative); Urine WBC 16 /hpf (0 - 5); Urine pH 6.5 (5.0-9.0)
[2024-10-06 12:14] LABS: Glucose 92 mg/dL (74-106)
[2024-10-06 12:15] LABS: Blood Urea Nitrogen 42 mg/dL (9-23)
[2024-10-06 20:00] VITALS: PULSE 90
[2024-10-06] MEDS ORDERED: NITROGLYCERIN 0.4 MG SL TAB SL PRN (22:00)
[2024-10-06] MEDS ORDERED: MORPHINE SULFATE INJ 2 MG/ml SYRG IV PRN ×2 (22:00)
[2024-10-06] MEDS ORDERED: ACETAMINOPHEN 325 MG TAB PO PRN (22:00)
[2024-10-06 22:22] LABS: Basophils # (auto) 0.1 10 ^3/uL (0-0.2); Basophils % (auto) 1.1 % (0.0-2.0); Eosinophils # (auto) 0.2 10 ^3/uL (0-0.8); Eosinophils % (auto) 1.8 % (0.0-7.0); Hematocrit 26.1 % (36.0-46.0); Lymphocytes # (auto) 0.9 10 ^3/uL (0.4-5.4); Lymphocytes % (auto) 9.9 % (10.0-50.0); Mean Corpuscular Hemoglobin 30.5 pg (28.0-32.0); Mean Corpuscular Hgb Conc. 34.5 g/dL (32.0-36.0); Mean Corpuscular Volume 88.2 fL (80.0-100.0); Monocytes # (auto) 0.5 10 ^3/uL (0-1.3); Monocytes % (auto) 5.7 % (0.0-12.0); Neutrophils # (auto) 7.4 10 ^3/uL (1.6-8.6); Neutrophils % (auto) 81.5 % (37.0-80.0); Platelet Count (auto) 149 10^3/uL (140-450); Red Blood Cells 2.96 10^6/uL (4.0-5.20); Red Cell Distribution Width 15.2 % (11.8-14.3)
[2024-10-06 22:40] LABS: Alanine Aminotransferase 16 U/L (7-40); Albumin 3.8 g/dL (3.2-4.8); Alkaline Phosphatase 94 U/L (46-116); Anion Gap 9 (5-15); Aspartate Aminotransferase 11 U/L (13-40); BUN/Creatinine Ratio 8.5 (10.0-20.0); Blood Urea Nitrogen 44 mg/dL (9-23); Calcium 10.7 mg/dL (8.7-10.4); Carbon Dioxide 24 mmol/L (20-31); Chloride 97 mmol/L (98-107); Glucose 100 mg/dL (74-106); Sodium 130 mmol/L (136-145)
[2024-10-06 22:41] LABS: Bilirubin, Total 0.3 mg/dL (0.2-1.0); Total Protein 8.5 g/dL (5.7-8.2)
--- NOTE | 2024-10-06 23:05 | DVHHPRES ---
History of Present Illness Resident Creating Document: DAVE KELLOGG RESIDENT History of Present Illness PALMIRA VEE 69 years old female with a PMH of multiple myeloma, CKD, AFib, hypothyroidism, recurrent UTIs presented to the ED with the chief complaints of generalized spasms and trouble speech since yesterday. Patient reported yesterday morning's she experienced generalized spasm which mimic seizures and trouble in speech with confusion and drooling. Patient recently discharged from this facility 2 weeks ago. On my assessment patient denies chest pain, SOB, dizziness, nausea, vomiting, fever, and other associated symptoms. Past Medical History multiple myeloma, CKD, AFib, thyroid disorder, recurrent UTIs Past Surgical History: None Family History: None Past Social History Patient lives with her , denies using tobacco, alcohol, drugs. Patient notes uses marijuana few times per week. Review of Systems Constitutional: Yes: Weakness, Malaise Eyes: No: Pain, Vision change, Conjunctivae inflammation, Eyelid inflammation, Other, Redness ENT: No: Ear pain, Ear discharge, Nose pain, Nose discharge, Nose congestion, Mouth pain, Mouth swelling, Throat pain, Throat swelling, Other Respiratory: No: Cough, Dry, Shortness of breath, SOB with excertion, Wheezing, Hemoptysis, Pleuritic Pain, Sputum, Wheezing, Other Cardiovascular: No: Chest Pain, Palpitations, Orthopnea, Paroxysmal Noc. Dyspnea, Edema, Lt Headedness, Other Gastrointestinal: No: Nausea, Vomiting, Abdominal Pain, Diarrhea, Constipation, Melena, Hematochezia, Other Genitourinary: No Dysuria, No Frequency, No Incontinence, No Hematuria, No Retention, No Other Musculoskeletal: other (Generalized body spasm); No: neck pain, shoulder pain, arm pain, back pain, hand pain, leg pain, foot pain Skin: No: Rash, Lesions, Jaundice, Bruising, Other Neurological: Weakness Allergies: Coded Allergies: NO KNOWN ALLERGIES (Unverified , 09/16/24) Medications Current Medications Medications Dose Ordered Sig/Juli Route Start Time Stop Time Status Last Admin Dose Admin Sodium Chloride 10 ml Q8HR IV 10/06/24 22:00 Ondansetron HCl 4 mg Q4HP PRN IV 10/06/24 22:00 Acetaminophen 650 mg Q6HP PRN PO 10/06/24 22:00 Morphine Sulfate 2 mg Q4HPRN PRN IV 10/06/24 22:00 Nitroglycerin 0.4 mg Q5MINP PRN SL 10/06/24 22:00 Morphine Sulfate 2 mg Q30M PRN IV 10/06/24 22:00 Ceftriaxone Sodium 50 ml @ 100 mls/hr DAILY@09 IV 10/07/24 09:00 Pantoprazole Sodium 40 mg DAILY IV 10/07/24 10:00 Amiodarone HCl 200 mg BID PO 10/07/24 10:00 Calcitonin [place] 200 unit DAILY NA 10/07/24 10:00 Methimazole 5 mg TID PO 10/07/24 06:00 Exam Vital Signs Vital Signs Date Time Temp Pulse Resp B/P (MAP) Pulse Ox O2 Delivery O2 Flow Rate FiO2 10/06/24 11:36 70 10/06/24 11:22 98.4 16 148/61 (90) 98 Exam Pt is lying on bed General Appearance: Alert, Oriented X3, Cooperative, Not in acute distress HEENT: Atraumatic, Mucous membranes dry Respiratory: Clear to auscultation, Normal air movement, No added sounds Cardiovascular: Regular rate, Normal S1, Normal S2, No murmurs Abdominal: Active bowel sounds, Soft, no distention, no tenderness Extremities: No edema, Normal pulses, No tenderness/swelling MSK:Tenderness to palpation around left iliac bone and sacral area Skin: No Significant rash, Neuro: Normal speech, sensorimotor deficits none Psych/Mental Status: Mental status NL, Mood NL Nurse was there as sharperone during examination Labs/Xrays Labs Test 10/06/24 22:05 10/06/24 11:17 10/06/24 11:16 Range/Units White Blood Count 9.0 4.4-10.8 10^3/uL Red Blood Count 2.96 L 4.0-5.20 10^6/uL Hemoglobin 9.0 L 12.2-16.2 g/dL Hematocrit 26.1 L 36.0-46.0 % Mean Corpuscular Volume 88.2 80.0-100.0 fL Mean Corpuscular Hemoglobin 30.5 28.0-32.0 pg Mean Corpuscular Hemoglobin Concent 34.5 32.0-36.0 g/dL Red Cell Distribution Width 15.2 H 11.8-14.3 % Platelet Count 149 140-450 10^3/uL Mean Platelet Volume 7.2 6.9-10.8 fL Neutrophils (%) (Auto) 81.5 H 37.0-80.0 % Lymphocytes (%) (Auto) 9.9 L 10.0-50.0 % Monocytes (%) (Auto) 5.7 0.0-12.0 % Eosinophils (%) (Auto) 1.8 0.0-7.0 % Basophils (%) (Auto) 1.1 0.0-2.0 % Neutrophils # (Auto) 7.4 1.6-8.6 10 ^3/uL Lymphocytes # (Auto) 0.9 0.4-5.4 10 ^3/uL Monocytes # (Auto) 0.5 0-1.3 10 ^3/uL Eosinophils # (Auto) 0.2 0-0.8 10 ^3/uL Basophils # (Auto) 0.1 0-0.2 10 ^3/uL Nucleated Red Blood Cells 0.0 % Sodium Level 130 L 136-145 mmol/L Potassium Level 5.0 3.5-5.1 mmol/L Chloride Level 97 L 98-107 mmol/L Carbon Dioxide Level 24 20-31 mmol/L Anion Gap 9 5-15 Blood Urea Nitrogen 44 H 9-23 mg/dL Creatinine 5.19 H 0.550-1.02 mg/dL Glomerular Filtration Rate Calc 8 >90 mL/min BUN/Creatinine Ratio 8.5 L 10.0-20.0 Serum Glucose 100 74-106 mg/dL Calcium Level 10.7 H 8.7-10.4 mg/dL Total Bilirubin 0.3 0.2-1.0 mg/dL Aspartate Amino Transferase (AST) 11 L 13-40 U/L Alanine Aminotransferase (ALT) 16 7-40 U/L Alkaline Phosphatase 94 46-116 U/L B-Type Natriuretic Peptide 195.50 0-100 pg/mL Total Protein 8.5 H 5.7-8.2 g/dL Albumin 3.8 3.2-4.8 g/dL Urine Color Light-yellow Yellow Urine Clarity Clear Clear Urine pH 6.5 5.0-9.0 Urine Specific [place] 1.014 1.001-1.035 Urine Protein 2+ H Negative Urine Ketones Negative Negative Urine Blood Trace H Negative /uL Urine Nitrite Negative Negative Urine Bilirubin Negative Negative Urine Urobilinogen Normal Negative mg/dL Urine Leukocyte Esterase 2+ Negative /uL Urine RBC 1 0 - 4 /hpf Urine WBC 16 0 - 5 /hpf Urine Squamous Epithelial Cells Few <5 /hpf Urine Bacteria None seen None Seen /hpf Urine Glucose Normal Normal mg/dL POC Glucose 90 70-106 mg/dl Assessment/Plan Assessment/Plan # Rule out Acute CVA # slurred speech -head CT showed no acute intracranial abnormality -monitor for symptoms and lab # mild hyponatremia -monitor lab for now -monitor for symptoms # Metastatic multiple myeloma # Hypercalcemia due to above # Normocytic anemia due to above -continue calcitonin -monitor lab -CT on 09/16/2024 showed large soft tissue mass in left iliac bone with a bone destruction and pleural base mass in posteromedial left lung may be metastatic versus primary malignancy -patient is following up with Dr Lewis, consultation if needed # MARTINEZ on CKD # mild Dehydration -monitor labs for now -encourage oral fluids -nephrology consultation if needed # acute UTI -evident on UA -currently on Rocephin # severe malnutrition with a BMI 15.3 -malnutrition consult SCDs for now No GI be PPX Cardiac diet Goals of care discussed with the patient for more than 27 minutes: Full code status Case management discussed with Dr. Welsh, patient and nurse Plan discussed with: Patient My Orders Orders - DAVE KELLOGG RESIDENT Procedure Category Date Status Time Admit ADMIT 10/06/24 Transmitted 21:48 Allergies ESTRELLA 10/06/24 In Process 21:48 Code Status CODE 10/06/24 Transmitted 21:48 Sodium Chloride Lock PHA 10/06/24 In Process (Saline Lock Ns) 22:00 Ondansetron Hcl PHA 10/06/24 In Process (Zofran) 22:00 Complete Blood Count LAB 10/07/24 Verified 04:00 Comprehensive LAB 10/07/24 Verified Metabolic Panel 04:00 Cardiac DIET 10/07/24 Transmitted Diet-2gna,Lofat,Lochol Breakfast Acetaminophen Tablet PHA 10/06/24 In Process (Tylenol Tablet) 22:00 Morphine Sulfate PHA 10/06/24 In Process Injection 22:00 Nitroglycerin PHA 10/06/24 In Process Sublingual (Ntrostat 22:00 Morphine Sulfate PHA 10/06/24 In Process Injection 22:00 Oxygen By Nasal RT 10/06/24 Transmitted Cannula 21:48 Stat Ekg For Chest ESTRELLA 10/06/24 In Process Pain 21:48 Notify Of Changes [facility] 10/06/24 In Process From Base 21:48 Manager Primary For [facility] 10/06/24 In Process 24 Hours 21:48 Emergency Dysrhythmia [facility] 10/06/24 In Process Protocol 21:48 Rhythm Strips Once [facility] 10/06/24 In Process Every Shift 21:48 Drug Screen LAB 10/06/24 Logged 22:48 Blood Alcohol LAB 10/06/24 In Process 22:48 Vitamin D, 25-Hydroxy LAB 10/06/24 In Process 22:48 Vitamin B12 LAB 10/06/24 In Process 22:48 Thyroid Stimulating LAB 10/06/24 In Process Hormone 22:48 PTPTT LAB 10/06/24 In Process 22:48 Chest Xray 1 View XY 10/06/24 Taken 22:50 Ceftriaxone 1gm/50ml PHA 10/07/24 In Process D5w (Rocephin) 09:00 Ceftriaxone 1gm/50ml PHA 10/06/24 In Process D5w (Rocephin) 23:00 Pantoprazole PHA 10/07/24 In Process (Protonix) 10:00 Amiodarone Tablet PHA 10/07/24 In Process (Cordarone Tablet) 10:00 Calcitonin Nasal PHA 10/07/24 In Process [place] (Fortical Nasal 10:00 Methimazole Tab PHA 10/07/24 In Process (Tapazole) 06:00 * Dietary Consult CONS 10/06/24 Transmitted 22:56 Sequential ESTRELLA 10/06/24 Verified Compression Device 22:58 Date of Service: Oct 06, 2024 Billing Provider: JANELLE WELSH MD Common Visit Codes: 51607-JLXVKAO INP/OBS CARE (HIGH) Secondary Visit Codes: 06784-[id number] CARE PLAN 30 MINUTES DAVE KELLOGG RESIDENT Oct 06, 2024 23:05 JANELLE WELSH MD Oct 07, 2024 18:19
[2024-10-06 23:21] LABS: INR 1.08 (0.9-1.15); Partial Thromboplastin Time 27.8 SEC (24.5-34.5); Prothrombin Time 11.4 sec (9.3-11.8)
[2024-10-06] MEDS: cefTRIAXone 1GM/50ML D5W 50 ML IV ONE (23:32)
[2024-10-06] MEDS: PANTOPRAZOLE 40 MG/10 ML VIAL INJ IV ONE (23:32)
[2024-10-06] MEDS: SODIUM CHLOR 0.9% PF (SALINE LOCK) 10ML VIAL/SYR IV SCH (23:33)
[2024-10-07] VITALS (10 sets, daily range): BP systolic 111–133; BP diastolic 60–70; PULSE 69–90; RESP 15–20; TEMP 97.8–98.7; O2SAT 92–99
--- NOTE | 2024-10-07 01:57 | DVH ---
EXAM: XY CHEST XRAY 1 VIEW CLINICAL HISTORY: sob TECHNIQUE: Single AP view of the chest WID: COMPARISON: XY CHEST PORTABLE on DOS: 09/21/24 FINDINGS: Lines and tubes: None Chest: The heart size and pulmonary vasculature is within normal limits. Hyperexpansion of the lungs. Interstitial prominence of the lungs. No pneumothorax or pleural effusi on. No consolidative pneumonia. The osseous structures are grossly intact. IMPRESSION: 1. Hyperexpansion of the lungs as well as interstitial prominence in the lungs. This could be related to underlying COPD or emphysema. 2. Additional DDX for the interstitial prominence in the lungs includes pulmonary edema or less likel y atypical pneumonia 3. No new airspace consolidation to suggest pneumonia.
[2024-10-07] MEDS: SODIUM CHLORIDE 0.9% 1,000 ML IV SCH (03:14)
[2024-10-07] MEDS: methIMAzole 5 MG TAB PO SCH (06:50)
[2024-10-07 06:53] LABS: Basophils # (auto) 0.1 10 ^3/uL (0-0.2); Basophils % (auto) 0.9 % (0.0-2.0); Eosinophils # (auto) 0.1 10 ^3/uL (0-0.8); Hemoglobin 7.5 g/dL (12.2-16.2); Monocytes # (auto) 0.5 10 ^3/uL (0-1.3); Neutrophils # (auto) 6.4 10 ^3/uL (1.6-8.6)
[2024-10-07 06:56] LABS: Eosinophils % (auto) 1.4 % (0.0-7.0); Hematocrit 22.2 % (36.0-46.0); Lymphocytes # (auto) 0.7 10 ^3/uL (0.4-5.4); Lymphocytes % (auto) 8.7 % (10.0-50.0); Mean Corpuscular Hemoglobin 29.8 pg (28.0-32.0); Mean Corpuscular Hgb Conc. 33.6 g/dL (32.0-36.0); Mean Corpuscular Volume 88.6 fL (80.0-100.0); Monocytes % (auto) 6.9 % (0.0-12.0); Neutrophils % (auto) 82.1 % (37.0-80.0); Platelet Count (auto) 105 10^3/uL (140-450); Red Blood Cells 2.51 10^6/uL (4.0-5.20); Red Cell Distribution Width 14.6 % (11.8-14.3); White Blood Cell 7.8 10^3/uL (4.4-10.8)
[2024-10-07 07:09] LABS: Albumin 3.1 g/dL (3.2-4.8); Alkaline Phosphatase 74 U/L (46-116); Anion Gap 9 (5-15); Aspartate Aminotransferase 9 U/L (13-40); BUN/Creatinine Ratio 8.5 (10.0-20.0); Bilirubin, Total 0.2 mg/dL (0.2-1.0); Blood Urea Nitrogen 39 mg/dL (9-23); Calcium 9.6 mg/dL (8.7-10.4); Carbon Dioxide 22 mmol/L (20-31); Chloride 103 mmol/L (98-107); Glucose 78 mg/dL (74-106); Sodium 134 mmol/L (136-145); Total Protein 6.5 g/dL (5.7-8.2)
[2024-10-07 07:19] LABS: Alanine Aminotransferase 9 U/L (7-40)
--- NOTE | 2024-10-07 07:59 | ECG ---
[facility] Test Date: 2024-10-06 Test Time: 11:21:13 Pat Name: PALMIRA VEE Department: ER Room: 0249T B Gender: F Supervisor Blasting: ABIOLA : 1955 Requested By: EMERGENCY EMERGENCY Order Number: [id number] Reading MD: Marc Patterson Measurements Intervals [place] Rate: 70 P: 73 VT: 144 QRS: 100 QRSD: 95 T: 50 QT: 446 QTc: 482 Interpretive Statements Sinus rhythm Right atrial enlargement Right axis deviation Consider left ventricular hypertrophy Electronically Signed On 10-16-2024 12:47:52 PST by Marc Patterson Please click the below link to view image of tracing.
[2024-10-07] MEDS: cefTRIAXone 1GM/50ML D5W 50 ML IV SCH (08:54)
[2024-10-07] MEDS: PANTOPRAZOLE 40 MG/10 ML VIAL INJ IV SCH (09:08)
[2024-10-07] MEDS: AMIODARONE HCL 200 MG TAB PO SCH (09:09)
[2024-10-07] MEDS: CALCITONIN 200 UNIT/SPRAY NASAL SCH (09:09)
--- NOTE | 2024-10-07 14:23 | DVHPN2 ---
Subjective Seen and examined at bedside, was recently discharged from the hospital with instructions to see Dr. Lewis for Oncology but patient did not go to her appointment. Spouse at bedside. Explained findings to patient and spouse for malignancy. Will get MRI BRain due to speech difficulty. Changes from previous H/P or p: No Changes Eyes: No Pain, No Vision change, No Conjunctivae inflammation, No Eyelid inflammation, No Other, No Redness ENT: No Ear pain, No Ear discharge, No Nose pain, No Nose discharge, No Nose congestion, No Mouth pain, No Mouth swelling, No Throat pain, No Throat swelling, No Other Cardiovascular: No Chest Pain, No Palpitations, No Orthopnea, No Paroxysmal Noc. Dyspnea, No Edema, No Lt Headedness, No Other Respiratory: No Cough, No Dry, No Shortness of breath, No SOB with excertion, No Wheezing, No Hemoptysis, No Pleuritic Pain, No Sputum, No Other Gastrointestinal: No Nausea, No Vomiting, No Abdominal Pain, No Diarrhea, No Constipation, No Melena, No Hematochezia, No Other Genitourinary: No Dysuria, No Frequency, No Incontinence, No Hematuria, No Retention, No Other Musculoskeletal: other (Generalized body spasm); No neck pain, No shoulder pain, No arm pain, No back pain, No hand pain, No leg pain, No foot pain Skin: No Rash, No Lesions, No Jaundice, No Bruising, No Other Objective Vitals Vital Signs Date Time Temp Pulse Resp B/P (MAP) Pulse Ox O2 Delivery O2 Flow Rate FiO2 10/07/24 12:30 97.8 77 19 117/63 (81) 95 97.8 10/07/24 00:13 Room Air* 0 21 21 Intake/Output Intake and Output 10/07/24 07:00 Intake Total 350 ml Output Total 300 ml Balance 50 ml Intake Oral 350 ml Output Urine Total 300 ml Exam Gen: in bed lethargic, difficulty with speech Cvs: N S1/S2, RRR Resp: Diminished Abd: Soft, Thin [employer]: AAO x 3 Medications Current Medications Medications Dose Ordered Sig/Juli Route Start Time Stop Time Status Last Admin Dose Admin Sodium Chloride 10 ml Q8HR IV 10/06/24 22:00 10/07/24 06:00 10 ML Ondansetron HCl 4 mg Q4HP PRN IV 10/06/24 22:00 Acetaminophen 650 mg Q6HP PRN PO 10/06/24 22:00 Morphine Sulfate 2 mg Q4HPRN PRN IV 10/06/24 22:00 Nitroglycerin 0.4 mg Q5MINP PRN SL 10/06/24 22:00 Morphine Sulfate 2 mg Q30M PRN IV 10/06/24 22:00 Ceftriaxone Sodium 50 ml @ 100 mls/hr DAILY@09 IV 10/07/24 09:00 10/07/24 08:54 100 MLS/HR Pantoprazole Sodium 40 mg DAILY IV 10/07/24 10:00 10/07/24 09:08 40 MG Amiodarone HCl 200 mg BID PO 10/07/24 10:00 10/07/24 09:09 200 MG Calcitonin [place] 200 unit DAILY NA 10/07/24 10:00 Methimazole 5 mg TID PO 10/07/24 06:00 10/07/24 06:50 5 MG Sodium Chloride 1,000 ml @ 75 mls/hr [id number] IV 10/07/24 00:30 10/07/24 03:14 75 MLS/HR Laboratory Results Laboratory Tests 10/07/24 05:35 Chemistry Test 10/06/24 22:05 10/07/24 05:35 Albumin 3.8 g/dL (3.2-4.8) 3.1 g/dL (3.2-4.8) L Calcium Level 10.7 mg/dL (8.7-10.4) H 9.6 mg/dL (8.7-10.4) Total Protein 8.5 g/dL (5.7-8.2) H 6.5 g/dL (5.7-8.2) Coagulation Test 10/06/24 22:05 Prothrombin Time 11.4 sec (9.3-11.8) Prothrombin Time INR 1.08 (0.9-1.15) Activated Partial Thromboplast Time 27.8 SEC (24.5-34.5) Cardiac Markers Test 10/06/24 22:05 B-Type Natriuretic Peptide 195.50 pg/mL (0-100) LFT Test 10/06/24 22:05 10/07/24 05:35 Alanine Aminotransferase (ALT) 16 U/L (7-40) 9 U/L (7-40) Alkaline Phosphatase 94 U/L (46-116) 74 U/L (46-116) Aspartate Amino Transferase (AST) 11 U/L (13-40) L 9 U/L (13-40) L Total Bilirubin 0.3 mg/dL (0.2-1.0) 0.2 mg/dL (0.2-1.0) HgA1c, TSH Test 10/06/24 22:05 Thyroid Stimulating Hormone (TSH) 0.01 uIU/mL (0.55-4.78) L Urinalysis Test 10/06/24 11:17 Urine Color Light-yellow (Yellow) Urine Clarity Clear (Clear) Urine pH 6.5 (5.0-9.0) Urine Specific [place] 1.014 (1.001-1.035) Urine Protein 2+ (Negative) H Urine Ketones Negative (Negative) Urine Blood Trace /uL (Negative) H Urine Nitrite Negative (Negative) Urine Bilirubin Negative (Negative) Urine Urobilinogen Normal mg/dL (Negative) Urine Leukocyte Esterase 2+ /uL (Negative) Urine RBC 1 /hpf (0 - 4) Urine WBC 16 /hpf (0 - 5) Urine Squamous Epithelial Cells Few /hpf (<5) Urine Bacteria None seen /hpf (None Seen) Urine Glucose Normal mg/dL (Normal) Assessment/Plan Assessment/Plan Metastatic multiple myeloma- Outpatient oncology Hypercalcemia due to above/parathyroid hormone independent- Monitor Normocytic anemia due to above, get FOBT Dysarthria- MRI Brain Goals of care discussed with patient and spouse- FULL CODE Plan discussed with: Patient, Spouse My Orders Orders - JANELLE FULTON MD Procedure Category Date Status Time *Dr. [facility] CONS 10/07/24 Transmitted -[place] 10:12 Pt Request For Service PT 10/07/24 Logged 10:12 Stool Occult Blood LAB 10/07/24 Logged 14:14 Lactulose Oral PHA 10/07/24 Logged 14:15 Complete Blood Count LAB 10/08/24 Verified 04:00 Comprehensive LAB 10/08/24 Verified Metabolic Panel 04:00 Brain Head Wo Contrast MRI 10/07/24 Logged 14:16 Date of Service: Oct 07, 2024 Billing Provider: JANELLE FULTON MD Common Visit Codes: [id number] INP/OBS CARE(HIGH) Secondary Visit Codes: [id number] CARE PLAN 30 MINUTES JANELLE FULTON MD Oct 07, 2024 14:23
[2024-10-07] MEDS: LACTULOSE 20Gm/30ML SOLN PO ONE (15:14)
--- NOTE | 2024-10-07 15:25 | DVH ---
MRI BRAIN WITHOUT CONTRAST CLINICAL HISTORY: Malignancy TECHNIQUE: Multiplanar, multisequence MR images of the brain without intravenous contrast. Comparison: CT HEAD WITHOUT CONTRAST on DOS: 10/06/24 FINDINGS: There is no restricted diffusion. There are mild scattered chronic microvascular ischemic changes in the supratentorial white matter. There is no evidence of hemorrhage, mass, mass effect or midline ezio ft. There is no hydrocephalus or extra-axial fluid collection. The visualized intracranial vasculatur e demonstrates appropriate flow-voids. The sagittal midline structures appear unremarkable. The crani ocervical junction is within normal limits. The calvarium demonstrates normal marrow signal. The para nasal sinuses and mastoid air cells are clear. IMPRESSION: 1. There is no acute intracranial process. HS:Y
[2024-10-08 05:00] VITALS: BP 128/52; PULSE 75; RESP 17; TEMP 98.3; O2SAT 97
[2024-10-08 06:27] LABS: Basophils # (auto) 0.1 10 ^3/uL (0-0.2); Basophils % (auto) 1.3 % (0.0-2.0); Eosinophils # (auto) 0.1 10 ^3/uL (0-0.8); Eosinophils % (auto) 1.2 % (0.0-7.0); Hematocrit 25.9 % (36.0-46.0); Hemoglobin 8.6 g/dL (12.2-16.2); Lymphocytes # (auto) 0.7 10 ^3/uL (0.4-5.4); Lymphocytes % (auto) 9.1 % (10.0-50.0); Mean Corpuscular Hemoglobin 29.7 pg (28.0-32.0); Mean Corpuscular Hgb Conc. 33.2 g/dL (32.0-36.0); Mean Corpuscular Volume 89.4 fL (80.0-100.0); Monocytes # (auto) 0.4 10 ^3/uL (0-1.3); Monocytes % (auto) 5.5 % (0.0-12.0); Neutrophils # (auto) 6.6 10 ^3/uL (1.6-8.6); Neutrophils % (auto) 82.9 % (37.0-80.0); Nucleated Red Blood Cells % 0.1 %; Platelet Count (auto) 128 10^3/uL (140-450); Red Cell Distribution Width 14.9 % (11.8-14.3); White Blood Cell 7.9 10^3/uL (4.4-10.8)
[2024-10-08 06:55] LABS: Alanine Aminotransferase 11 U/L (7-40); Albumin 3.5 g/dL (3.2-4.8); Alkaline Phosphatase 86 U/L (46-116); Anion Gap 10 (5-15); BUN/Creatinine Ratio 8.3 (10.0-20.0); Blood Urea Nitrogen 41 mg/dL (9-23); Calcium 11.1 mg/dL (8.7-10.4); Carbon Dioxide 21 mmol/L (20-31); Chloride 99 mmol/L (98-107); Glucose 86 mg/dL (74-106); Potassium 4.3 mmol/L (3.5-5.1); Sodium 130 mmol/L (136-145)
[2024-10-08 06:56] LABS: Aspartate Aminotransferase 14 U/L (13-40); Bilirubin, Total 0.3 mg/dL (0.2-1.0); Total Protein 7.8 g/dL (5.7-8.2)
[2024-10-08 08:00] VITALS: PULSE 76; RESP 15
[2024-10-08 09:00] VITALS: BP 142/79; PULSE 79; RESP 19; TEMP 98.3; O2SAT 98
[2024-10-08] MEDS: ONDANSETRON HCL 4 MG/2 ML VIAL IV PRN (10:34)
[2024-10-08 13:00] VITALS: BP 129/62; PULSE 79; RESP 18; TEMP 97.4; O2SAT 97
--- NOTE | 2024-10-08 14:03 | DVHINCON2 ---
Date of service: Oct 08, 2024 Referring Physician Hospitalist Reason for Consultation Chronic kidney disease History of Present Illness 69-year-old female with past medical history of atrial fibrillation and hypothyroidism was diagnosed with multiple myeloma two weeks ago. At this hospital the mesh was found to be severely hypercalcemic. At that time she was noted to have significantly reduced renal function with a creatinine 4.0. She was discharged with plan for renal follow-up. She presents to the hospital now complaining of facial twitching. Nephrology is consulted due to abnormal creatinine level. Allergies: Coded Allergies: NO KNOWN ALLERGIES (Unverified , 09/16/24) Home Meds Active Scripts Calcitonin ([place]) (Calcitonin [place]) 200 Unit/Act Spr, 200 UNIT NA DAILY for 14 Days, #10 BOTTLE 1 SPRAY INTO ALTERNATE NOSTRIL DAILY Prov:KAITLYNN MAJOR RESIDENT 09/23/24 Amiodarone HCl (Amiodarone Hydrocloride) 200 Mg Tab, 200 MG PO BID for 30 Days, #60 TAB Prov:KAITLYNN MAJOR RESIDENT 09/23/24 Methimazole (Methimazole) 5 Mg Tab, 5 MG PO TID for 30 Days, #90 TAB Prov:KAITLYNN MAJOR RESIDENT 09/23/24 Reported Medications Omeprazole (Gnp Omeprazole) 20 Mg Tab, 20 MG PO, TAB 09/21/24 Family History: Alcoholism G8 FATHER Cardiovascular disease PATERNAL GRANDFATHER Cerebrovascular accident (CVA) Diabetes mellitus MATERNAL GRANDMOTHER FH: breast cancer G8 MOTHER FH: dementia G8 MOTHER H&P Exam Vital Signs/I&O Vital Sign Date Time Temp Pulse Resp B/P (MAP) Pulse Ox O2 Delivery O2 Flow Rate FiO2 10/08/24 18:17 98.3 67 17 98 10/08/24 16:30 107/46 (66) 10/08/24 08:00 Room Air* 0 21 Intake and Output 10/08/24 10/09/24 19:00 07:00 Intake Total 550 ml Balance 550 ml Intake Oral 500 ml IV Total 50 ml # Voids 2 Labs/Diagnostic Data Labs/Diagnostic Data Laboratory Tests Test 10/08/24 06:02 10/07/24 05:35 10/06/24 22:05 10/06/24 11:25 Range/Units White Blood Count 7.9 7.8 9.0 8.1 4.4-10.8 10^3/uL Red Blood Count 2.90 L 2.51 L 2.96 L 3.23 L 4.0-5.20 10^6/uL Hemoglobin 8.6 L 7.5 #L 9.0 L 9.5 L 12.2-16.2 g/dL Hematocrit 25.9 #L 22.2 #L 26.1 L 28.6 L 36.0-46.0 % Mean Corpuscular Volume 89.4 88.6 88.2 88.7 80.0-100.0 fL Mean Corpuscular Hemoglobin 29.7 29.8 30.5 29.5 28.0-32.0 pg Mean Corpuscular Hemoglobin Concent 33.2 33.6 34.5 33.3 32.0-36.0 g/dL Red Cell Distribution Width 14.9 H 14.6 H 15.2 H 15.2 H 11.8-14.3 % Platelet Count 128 L 105 L 149 146 140-450 10^3/uL Mean Platelet Volume 7.2 7.5 7.2 7.3 6.9-10.8 fL Neutrophils (%) (Auto) 82.9 H 82.1 H 81.5 H 83.5 H 37.0-80.0 % Lymphocytes (%) (Auto) 9.1 L 8.7 L 9.9 L 8.6 L 10.0-50.0 % Monocytes (%) (Auto) 5.5 6.9 5.7 5.8 0.0-12.0 % Eosinophils (%) (Auto) 1.2 1.4 1.8 1.0 0.0-7.0 % Basophils (%) (Auto) 1.3 0.9 1.1 1.1 0.0-2.0 % Neutrophils # (Auto) 6.6 6.4 7.4 6.8 1.6-8.6 10 ^3/uL Lymphocytes # (Auto) 0.7 0.7 0.9 0.7 0.4-5.4 10 ^3/uL Monocytes # (Auto) 0.4 0.5 0.5 0.5 0-1.3 10 ^3/uL Eosinophils # (Auto) 0.1 0.1 0.2 0.1 0-0.8 10 ^3/uL Basophils # (Auto) 0.1 0.1 0.1 0.1 0-0.2 10 ^3/uL Nucleated Red Blood Cells 0.1 0.0 0.0 0.1 % Sodium Level 130 L 134 L 130 L 131 L 136-145 mmol/L Potassium Level 4.3 4.0 5.0 4.4 3.5-5.1 mmol/L Chloride Level 99 103 97 L 96 L 98-107 mmol/L Carbon Dioxide Level 21 22 24 25 20-31 mmol/L Anion Gap 10 9 9 10 5-15 Blood Urea Nitrogen 41 H 39 H 44 H 42 H 9-23 mg/dL Creatinine 4.94 H 4.61 H 5.19 H 5.23 H 0.550-1.02 mg/dL Glomerular Filtration Rate Calc 9 10 8 8 >90 mL/min BUN/Creatinine Ratio 8.3 L 8.5 L 8.5 L 8.0 L 10.0-20.0 Serum Glucose 86 78 100 92 74-106 mg/dL Calcium Level 11.1 H 9.6 10.7 H 11.0 H 8.7-10.4 mg/dL Total Bilirubin 0.3 0.2 0.3 0.2-1.0 mg/dL Aspartate Amino Transferase (AST) 14 9 L 11 L 13-40 U/L Alanine Aminotransferase (ALT) 11 9 16 7-40 U/L Alkaline Phosphatase 86 74 94 46-116 U/L Total Protein 7.8 6.5 8.5 H 5.7-8.2 g/dL Albumin 3.5 3.1 L 3.8 3.2-4.8 g/dL Prothrombin Time 11.4 9.3-11.8 sec Prothrombin Time INR 1.08 0.9-1.15 Activated Partial Thromboplast Time 27.8 24.5-34.5 SEC B-Type Natriuretic Peptide 195.50 0-100 pg/mL Vitamin B12 Level 502 211-911 pg/mL Vitamin D 25-Hydroxy 69.5 30.0-100 ng/mL Thyroid Stimulating Hormone (TSH) 0.01 L 0.55-4.78 uIU/mL Plasma/Serum Blood Alcohol 3.3 <10 mg/dL Test 10/06/24 11:17 10/06/24 11:16 Range/Units Urine Color Light-yellow Yellow Urine Clarity Clear Clear Urine pH 6.5 5.0-9.0 Urine Specific [place] 1.014 1.001-1.035 Urine Protein 2+ H Negative Urine Ketones Negative Negative Urine Blood Trace H Negative /uL Urine Nitrite Negative Negative Urine Bilirubin Negative Negative Urine Urobilinogen Normal Negative mg/dL Urine Leukocyte Esterase 2+ Negative /uL Urine RBC 1 0 - 4 /hpf Urine WBC 16 0 - 5 /hpf Urine Squamous Epithelial Cells Few <5 /hpf Urine Bacteria None seen None Seen /hpf Urine Glucose Normal Normal mg/dL POC Glucose 90 70-106 mg/dl Assessment Acute kidney injury on chronic kidney disease Hypertension Hypercalcemia Multiple myeloma thyroid disease anemia Agree with IV fluid hydration Avoid hypotension Anemia panel Discussed with patient at bedside in regards to GFR being approximately 9% Plan discussed with: Patient ELVIS RAGSDALE MD Oct 08, 2024 14:03
--- NOTE | 2024-10-08 16:17 | DVHDS2 ---
Discharge Summary Date of Admission Oct 06, 2024 at 21:48 Date of Discharge: Oct 08, 2024 Admitting Diagnosis Metastatic multiple myeloma Labs/Diagnostic Data: Laboratory Results Test 10/08/24 06:02 10/06/24 22:05 10/06/24 11:17 10/06/24 11:16 White Blood Count 7.9 10^3/uL (4.4-10.8) Red Blood Count 2.90 10^6/uL (4.0-5.20) Hemoglobin 8.6 g/dL (12.2-16.2) Hematocrit 25.9 % (36.0-46.0) Mean Corpuscular Volume 89.4 fL (80.0-100.0) Mean Corpuscular Hemoglobin 29.7 pg (28.0-32.0) Mean Corpuscular Hemoglobin Concent 33.2 g/dL (32.0-36.0) Red Cell Distribution Width 14.9 % (11.8-14.3) Platelet Count 128 10^3/uL (140-450) Mean Platelet Volume 7.2 fL (6.9-10.8) Neutrophils (%) (Auto) 82.9 % (37.0-80.0) Lymphocytes (%) (Auto) 9.1 % (10.0-50.0) Monocytes (%) (Auto) 5.5 % (0.0-12.0) Eosinophils (%) (Auto) 1.2 % (0.0-7.0) Basophils (%) (Auto) 1.3 % (0.0-2.0) Neutrophils # (Auto) 6.6 10 ^3/uL (1.6-8.6) Lymphocytes # (Auto) 0.7 10 ^3/uL (0.4-5.4) Monocytes # (Auto) 0.4 10 ^3/uL (0-1.3) Eosinophils # (Auto) 0.1 10 ^3/uL (0-0.8) Basophils # (Auto) 0.1 10 ^3/uL (0-0.2) Nucleated Red Blood Cells 0.1 % Sodium Level 130 mmol/L (136-145) Potassium Level 4.3 mmol/L (3.5-5.1) Chloride Level 99 mmol/L (98-107) Carbon Dioxide Level 21 mmol/L (20-31) Anion Gap 10 (5-15) Blood Urea Nitrogen 41 mg/dL (9-23) Creatinine 4.94 mg/dL (0.550-1.02) Glomerular Filtration Rate Calc 9 mL/min (>90) BUN/Creatinine Ratio 8.3 (10.0-20.0) Serum Glucose 86 mg/dL (74-106) Calcium Level 11.1 mg/dL (8.7-10.4) Total Bilirubin 0.3 mg/dL (0.2-1.0) Aspartate Amino Transferase (AST) 14 U/L (13-40) Alanine Aminotransferase (ALT) 11 U/L (7-40) Alkaline Phosphatase 86 U/L (46-116) Total Protein 7.8 g/dL (5.7-8.2) Albumin 3.5 g/dL (3.2-4.8) Prothrombin Time 11.4 sec (9.3-11.8) Prothrombin Time INR 1.08 (0.9-1.15) Activated Partial Thromboplast Time 27.8 SEC (24.5-34.5) B-Type Natriuretic Peptide 195.50 pg/mL (0-100) Vitamin B12 Level 502 pg/mL (211-911) Vitamin D 25-Hydroxy 69.5 ng/mL (30.0-100) Thyroid Stimulating Hormone (TSH) 0.01 uIU/mL (0.55-4.78) Plasma/Serum Blood Alcohol 3.3 mg/dL (<10) Urine Color Light-yellow (Yellow) Urine Clarity Clear (Clear) Urine pH 6.5 (5.0-9.0) Urine Specific [place] 1.014 (1.001-1.035) Urine Protein 2+ (Negative) Urine Ketones Negative (Negative) Urine Blood Trace /uL (Negative) Urine Nitrite Negative (Negative) Urine Bilirubin Negative (Negative) Urine Urobilinogen Normal mg/dL (Negative) Urine Leukocyte Esterase 2+ /uL (Negative) Urine RBC 1 /hpf (0 - 4) Urine WBC 16 /hpf (0 - 5) Urine Squamous Epithelial Cells Few /hpf (<5) Urine Bacteria None seen /hpf (None Seen) Urine Glucose Normal mg/dL (Normal) POC Glucose 90 mg/dl (70-106) Other Laboratory Tests 10/08/24 06:02 Brief Hx & Hospital Course: PALMIRA VEE 69 years old female with a PMH of multiple myeloma, CKD, AFib, hypothyroidism, recurrent UTIs presented to the ED with the chief complaints of generalized spasms and trouble speech since yesterday. Patient reported yesterday morning's she experienced generalized spasm which mimic seizures and trouble in speech with confusion and drooling. Patient had hypercalcemia on admission due to Metastatic Myeloma. Patient was discharged 2 weeks ago from [facility] and had appointment with Oncology by the patient did not show up for her appointment. Patients calcium has improved, now patient will be discharged home. Patients spouse at bedside, explained about importance for following up with Oncology. Explained the patients poor prognosis to the patient and spouse. Condition at Discharge: Poor Final Diagnosis/Problems List Metastatic multiple myeloma- Outpatient oncology Hypercalcemia due to above/parathyroid hormone independent- Monitor Normocytic anemia due to above, get FOBT Dysarthria- MRI Brain Discharge Disposition: Home Discharge Instruct/Medications Diet: Regular Activity: Light activity Follow Up/Referral: Dr. Jd Lewis Discharge Statement: "Patient was advised to return to the ER or call 911 if any headaches, dizziness, shortness of breath, chest pain, abdominal pain, bleeding, fevers, or worsening of medical condition. Patient was counseled about treatment plan, medications, possible side effects, patientverbalized understanding. All questions were answered to the best of my ability. This discharge took greater then 30 minutes in planning, reviewing documentation, counseling the patient, and discussing with other team members." ASSESSMENT ASSESSMENT Assessment Date of Service: Oct 08, 2024 Billing Provider: JANELLE FULTON MD Common Visit Codes: [id number] DISCH DAY >30min JANELLE FULTON MD Oct 08, 2024 16:16
[2024-10-08 16:30] VITALS: BP 107/46; PULSE 65; RESP 19; TEMP 98.1; O2SAT 97
[2024-10-08 18:17] VITALS: BP 111/59; PULSE 67; RESP 17; TEMP 98.3; O2SAT 98
== END 2024-10-08 18:55 | disposition home or self-care (01) | DRG 840 ==
LOC: ER 11:04 → TELE 21:48 → TELE-EAST 10-07 00:58
PROVIDERS: ATTEND Internal Medicine
DX: C90.00 Multiple myeloma not having achieved remission (principal); E43 Unspecified severe protein-calorie malnutrition; G93.41 Metabolic encephalopathy; N17.0 Acute kidney failure with tubular necrosis; E87.1 Hypo-osmolality and hyponatremia; Z68.1 Body mass index [BMI] 19.9 or less, adult; N39.0 Urinary tract infection, site not specified; E83.52 Hypercalcemia; N18.9 Chronic kidney disease, unspecified; D64.9 Anemia, unspecified; E86.0 Dehydration; K59.00 Constipation, unspecified; I48.91 Unspecified atrial fibrillation; E03.9 Hypothyroidism, unspecified; I12.9 Hypertensive chronic kidney disease with stage 1 through stage 4 chronic kidney disease, or unspecified chronic kidney disease; R47.1 Dysarthria and anarthria; I25.2 Old myocardial infarction; Z82.49 Family history of ischemic heart disease and other diseases of the circulatory system; Z80.3 Family history of malignant neoplasm of breast; Z82.3 Family history of stroke; Z83.3 Family history of diabetes mellitus; Z79.899 Other long term (current) drug therapy
CPT/HCPCS: 36415; 70450; 70551; 71045; 80048; 80053; 80320; 81001; 82306; 82607; 82962; 83880; 84443; 85025; 85610; 85730; 93005; 97110; 97116; 97163; 97530; G0378; J2405; J2470

== ENCOUNTER 2024-10-12 10:00 | Inpatient (IN) | payer OTHER ==
[~2024-10-12] VITALS: Ht 165.1 cm; Wt 47.7 kg
--- NOTE | 2024-10-12 10:27 | ED.PDOC ---
Altered Mental Status HPI Comments 69Y F with PMHx CA, CKD, PA, UTIs, Afib, Anemia, and thyroid disease presents to ED via EMS for chief complaint ALOC. Per EMS, pt's found pt on the ground after an unwitnessed fall and pt became confused and was unable to answer her 's questions. Per EMS, pt has been experiencing a decline in mental status over the last few weeks, characterized by less responsiveness and intermittent confusion. Upon ED arrival, pt was in C-collar and EKG had been done by EMS. Pt is A&Ox2, denies pain, able to state she was on the ground because she fell. Pt was last d/c from [facility] on 10/08/2024 for dx general weakness. No known allergies. Chief Complaint: ALOC Time Seen by MD: 10:09 Primary Care Provider: steph Hogan Notes: Medications, Allergies Allergies: Coded Allergies: NO KNOWN ALLERGIES (Unverified , 09/16/24) Home Meds Active Scripts Calcitonin ([place]) (Calcitonin [place]) 200 Unit/Act Spr, 200 UNIT NA DAILY for 14 Days, #10 BOTTLE 1 SPRAY INTO ALTERNATE NOSTRIL DAILY Prov:MAJORKAITLYNN RESIDENT 09/23/24 Amiodarone HCl (Amiodarone Hydrocloride) 200 Mg Tab, 200 MG PO BID for 30 Days, #60 TAB Prov:MAJORKAITLYNN RESIDENT 09/23/24 Methimazole (Methimazole) 5 Mg Tab, 5 MG PO TID for 30 Days, #90 TAB Prov:MORIAHKAITLYNN RESIDENT 09/23/24 Reported Medications Omeprazole (Gnp Omeprazole) 20 Mg Tab, 20 MG PO, TAB 09/21/24 Information Source: Patient, Emergency Med Personnel Mode of Arrival: EMS Brought in by: EMS Severity: Moderate Timing: Weeks Duration: Since onset Prehospital treatment: 12 Lead EKG, C-Collar Quality: Confusion Recent: None History of: None Associated Signs and Symptoms: None Past Medical History PAST MEDICAL HISTORY: AFIB, Anemia, Cancer, CKF, PA, Thyroid, UTI'S Surgical History: Denies all surgeries [employer] 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 History: Denies all [employer] DEVELOPER Hx Family History Family History: Unknown Social History Smoker: Non-Smoker Alcohol: Denies ETOH Use Drugs: Marijuana Lives In: Home Unable to Obtain due to: Altered Mental Status Physical Exam General Appearance: No Apparent Distress, Normal HEENT: Pharynx Normal Neck: Full Range of Motion, Non-Tender, Normal, Normal Inspection Respiratory: Chest Non-Tender, Lungs Clear, No Accessory Muscle Use, No Respiratory Distress, Normal Breath Sounds Cardiovascular: No Edema, No JVD, Normal Peripheral Pulses, Regular Rate/Rhythm Breast Exam: Deferred Gastrointestinal: Non Tender, Soft Genitalia: Deferred Pelvic: Deferred Rectal: Deferred Extremities: No calf tenderness, Normal inspection, Normal range of motion, Non-tender, No pedal edema Musculoskeletal : Apperance: Normal Neurologic: Alert, Normal Affect, Normal Mood, Other (Moves all extremities, no facial asymmetry, intermittently follows commands and answers questions) Cerebellar Function: NOT DONE Reflexes: NOT DONE Skin: Dry, Pallor, Warm Lymphatic: NOT DONE Was a procedure done? Was a procedure done?: No Differential Diagnosis (ALOC) Differential Diagnosis: Dehydration, Hypoglycemia, Encephalopathy, Sepsis, Seizure, Closed Head Injury, CVA, SAH, Drug Overdose, ETOH Intoxication, Heart Failure, Renal Failure Other Differential Diagnosis Infection such as UTI or pneumonia, sepsis, among others X-Ray, Labs, Meds, VS Vital Signs Date Time Temp Pulse Resp B/P (MAP) Pulse Ox O2 Delivery O2 Flow Rate FiO2 10/12/24 11:35 98.2 90 20 153/74 (100) 98 98.2 10/12/24 11:22 82 10/12/24 11:22 87 20 96 Room Air* 0 21 10/12/24 10:06 97.7 96 16 170/85 (113) 98 Lab Test 10/12/24 11:25 10/12/24 10:26 Range/Units Troponin I High Sensitivity 32 24 </=34 ng/L White Blood Count 7.0 4.4-10.8 10^3/uL Red Blood Count 3.02 L 4.0-5.20 10^6/uL Hemoglobin 8.9 L 12.2-16.2 g/dL Hematocrit 26.8 L 36.0-46.0 % Mean Corpuscular Volume 88.7 80.0-100.0 fL Mean Corpuscular Hemoglobin 29.5 28.0-32.0 pg Mean Corpuscular Hemoglobin Concent 33.3 32.0-36.0 g/dL Red Cell Distribution Width 15.5 H 11.8-14.3 % Platelet Count 154 140-450 10^3/uL Mean Platelet Volume 7.1 6.9-10.8 fL Neutrophils (%) (Auto) 80.2 H 37.0-80.0 % Lymphocytes (%) (Auto) 10.4 10.0-50.0 % Monocytes (%) (Auto) 7.7 0.0-12.0 % Eosinophils (%) (Auto) 0.7 0.0-7.0 % Basophils (%) (Auto) 1.0 0.0-2.0 % Neutrophils # (Auto) 5.6 1.6-8.6 10 ^3/uL Lymphocytes # (Auto) 0.7 0.4-5.4 10 ^3/uL Monocytes # (Auto) 0.5 0-1.3 10 ^3/uL Eosinophils # (Auto) 0.1 0-0.8 10 ^3/uL Basophils # (Auto) 0.1 0-0.2 10 ^3/uL Nucleated Red Blood Cells 0.0 % Sodium Level 130 L 136-145 mmol/L Potassium Level 4.2 3.5-5.1 mmol/L Chloride Level 98 98-107 mmol/L Carbon Dioxide Level 21 20-31 mmol/L Anion Gap 11 5-15 Blood Urea Nitrogen 43 H 9-23 mg/dL Creatinine 5.20 H 0.550-1.02 mg/dL Glomerular Filtration Rate Calc 8 >90 mL/min BUN/Creatinine Ratio 8.3 L 10.0-20.0 Serum Glucose 133 H 74-106 mg/dL Lactic Acid Level 1.1 0.4-2.0 mmol/L Calcium Level 11.7 H 8.7-10.4 mg/dL B-Type Natriuretic Peptide 269.99 0-100 pg/mL Plasma/Serum Blood Alcohol < 3.0 <10 mg/dL Current Medications Medications (Trade) Dose Ordered Sig/Juli Route Start Time Stop Time Status Last Admin Sodium Chloride 1,000 ml @ 1,000 mls/hr Q1H ONCE IV 10/12/24 10:30 10/12/24 11:29 DC 10/12/24 12:21 PROCEDURE(s): HWOCT - HEAD WITHOUT CONTRAST REASON: aloc, unwitnessed fall ORDER NUMBER(s): [id number], ACCESSION NUMBER(s): [id number] EXAM: CT HEAD WITHOUT CONTRAST INDICATION: aloc, unwitnessed fall TECHNIQUE: CT of the head without intravenous contrast. Radiation Dose : 1. Head: CT Dose: CTDI volume is 54 mGy. Dose-length product is 971 mGy*cm The dose indicators for CT are the volume Computed Tomography (CT) Dose Index (CTDIvol) and the Dose Length Product (DLP), and are measured in units of mGy and mGy-cm, respectively. These indicators are not patient dose, but values generated from the CT scanner acquisition factors. The report includes radiation exposure data for exposures received during this examination. COMPARISON: MRI BRAIN HEAD WO CONTRAST on DOS: 10/07/24, CT HEAD WITHOUT CONTRAST on DOS: 10/06/24 FINDINGS: Limited examination due to patient motion during time of scan. Given this limitation: There is no evidence of acute intracranial hemorrhage, extra-axial collection, mass effect, midline shift, herniation or hydrocephalus. The ventricles, sulci and cisterns are age appropriate. The camilo-white differentiation is intact. Patchy periventricular and subcortical white matter hypoattenuation is nonspecific but may be related to small vessel ischemic disease. The visualized paranasal sinuses and mastoid air cells are clear. The surrounding soft tissues and osseous structures are unremarkable. IMPRESSION: 1. No acute intracranial abnormality. Radiation optimization: All CT scans at this facility use at least one of these dose optimization techniques: automated exposure control mA and/or kV adjustment per patient size (includes targeted exams where dose is matched to clinical indication) or iterative reconstruction. EDURE(s): CXRP - CHEST PORTABLE REASON: aloc, unwitnessed fall ORDER NUMBER(s): [id number], ACCESSION NUMBER(s): [id number] CHEST RADIOGRAPH Indication:aloc, unwitnessed fall Technique: Single frontal view of the chest was obtained COMPARISON: XY CHEST XRAY 1 VIEW on DOS: 10/06/24, XY CHEST PORTABLE on DOS: 09/21/24, XY CHEST PORTABLE on DOS: 09/21/24, XY CHEST XRAY 1 VIEW on DOS: 09/20/24, XY CHEST PORTABLE on DOS: 09/18/24 FINDINGS: Lines and Tubes: None Lungs: Focal scarring/ atelectasis seen in the right upper lobe. Superimposed pneumonia is difficult to exclude. Pleura: No effusion. No pneumothorax. Cardiomediastinal contours: Unremarkable Bones: Unremarkable IMPRESSION: 1. Focal scarring/ atelectasis seen in the right upper lobe. Superimposed pneumonia is difficult to exclude. X-Ray, Labs, Meds, VS Comment 69Y F with PMHx CA, CKD, PA, UTIs, Afib, Anemia, and thyroid disease brought in by EMS for evaluation of an unwitnessed fall and altered mental status Vitals remarkable for BP 170/85 Exam remarkable for confusion, alert and oriented x2 CT unremarkable Chest x-ray: IMPRESSION: 1. Focal scarring/ atelectasis seen in the right upper lobe. Superimposed pneumonia is difficult to exclude. CBC remarkable for hemoglobin 8.9, hematocrit 26.8, basic metabolic panel remarkable for sodium 130, BUN 43, creatinine 5.2. Of note last values for BUN and creatinine were 41 and 4.94 Troponin negative, BNP 269.99 Serum alcohol negative, lactate normal UA and urine drug screen pending Patient treated with the following in the ED: 1 L 0.9 normal saline IV bolus, Rocephin 1 g IV, Zithromax 500 mg IV Plan is to admit the patient for treatment of possible pneumonia, IV hydration, and further evaluation of altered mental status. Time of 1ST Reevaluation: 10:39 Reevaluation 1ST: Unchanged Time of 2ND Reevaluation: 13:17 Reevaluation 2ND: Unchanged Patient Education/Counseling: Diagnosis, Treatment Family Education/Counseling: No Family Present Departure 1 Departure Time of Disposition: 13:17 Impression: Primary Impression: Metabolic encephalopathy Additional Impressions: Acute kidney injury superimposed on chronic kidney disease Pneumonia Qualified Codes: J18.9 - Pneumonia, unspecified organism Disposition: ADMITTED INPATIENT Admit to: Tele Condition: Guarded Critical Care Note Critical Care Time?: No Stability Stability form required: No Heart Score Heart Score: Heart Score Response (Comments) Value History N/A 0 EKG N/A 0 Age N/A 0 Risk Factors N/A 0 Troponin N/A 0 Total 0 I personally scribed for YANG ISAACS MD ([email or web address]) on 10/12/24 at 10:27. Electronically submitted by [facility]anisha [facility] [place] I personally scribed for YANG ISAACS MD ([email or web address]) on 10/12/24 at 11:23. Electronically submitted by [facility] Tidwell ([facility] YANG ISAACS MD Oct 12, 2024 10:27
[2024-10-12 10:44] LABS: Basophils # (auto) 0.1 10 ^3/uL (0-0.2); Eosinophils # (auto) 0.1 10 ^3/uL (0-0.8); Eosinophils % (auto) 0.7 % (0.0-7.0); Hematocrit 26.8 % (36.0-46.0); Hemoglobin 8.9 g/dL (12.2-16.2); Lymphocytes # (auto) 0.7 10 ^3/uL (0.4-5.4); Lymphocytes % (auto) 10.4 % (10.0-50.0); Mean Corpuscular Hemoglobin 29.5 pg (28.0-32.0); Mean Corpuscular Hgb Conc. 33.3 g/dL (32.0-36.0); Mean Corpuscular Volume 88.7 fL (80.0-100.0); Monocytes # (auto) 0.5 10 ^3/uL (0-1.3); Monocytes % (auto) 7.7 % (0.0-12.0); Neutrophils # (auto) 5.6 10 ^3/uL (1.6-8.6); Neutrophils % (auto) 80.2 % (37.0-80.0); Platelet Count (auto) 154 10^3/uL (140-450); Red Blood Cells 3.02 10^6/uL (4.0-5.20); Red Cell Distribution Width 15.5 % (11.8-14.3)
[2024-10-12 10:51] LABS: Anion Gap 11 (5-15); Carbon Dioxide 21 mmol/L (20-31); Chloride 98 mmol/L (98-107); Potassium 4.2 mmol/L (3.5-5.1); Sodium 130 mmol/L (136-145)
[2024-10-12 10:52] LABS: Calcium 11.7 mg/dL (8.7-10.4)
[2024-10-12 10:57] LABS: BUN/Creatinine Ratio 8.3 (10.0-20.0); Blood Alcohol < 3.0 mg/dL (<10); Blood Urea Nitrogen 43 mg/dL (9-23); Glucose 133 mg/dL (74-106)
--- NOTE | 2024-10-12 11:02 | DVH ---
EXAM: CT HEAD WITHOUT CONTRAST INDICATION: aloc, unwitnessed fall TECHNIQUE: CT of the head without intravenous contrast. Radiation Dose : 1. Head: CT Dose: CTDI volume is 54 mGy. Dose-length product is 971 mGy*cm The dose indicators for CT are the volume Computed Tomography (CT) Dose Index (CTDIvol) and the Dose Length Product (DLP), and are measured in units of mGy and mGy-cm, respectively. These indicators are not patient dose, but values generated from the CT scanner acquisition factors. The report includes radiation exposure data for exposures received during this examination. COMPARISON: MRI BRAIN HEAD WO CONTRAST on DOS: 10/07/24, CT HEAD WITHOUT CONTRAST on DOS: 10/06/24 FINDINGS: Limited examination due to patient motion during time of scan. Given this limitation: There is no evidence of acute intracranial hemorrhage, extra-axial collection, mass effect, midline s hift, herniation or hydrocephalus. The ventricles, sulci and cisterns are age appropriate. The camilo-white differentiation is intact. Patchy periventricular and subcortical white matter hypoattenuation is nonspecific but may be related to small vessel ischemic disease. The visualized paranasal sinuses and mastoid air cells are clear. The surrounding soft tissues and osseous structures are unremarkable. IMPRESSION: 1. No acute intracranial abnormality. Radiation optimization: All CT scans at this facility use at least one of these dose optimization lyric hniques: automated exposure control mA and/or kV adjustment per patient size (includes targeted exam s where dose is matched to clinical indication) or iterative reconstruction.
--- NOTE | 2024-10-12 11:11 | DVH ---
CHEST RADIOGRAPH Indication:aloc, unwitnessed fall Technique: Single frontal view of the chest was obtained COMPARISON: XY CHEST XRAY 1 VIEW on DOS: 10/06/24, XY CHEST PORTABLE on DOS: 09/21/24, XY CHEST DISHA BLE on DOS: 09/21/24, XY CHEST XRAY 1 VIEW on DOS: 09/20/24, XY CHEST PORTABLE on DOS: 09/18/24 FINDINGS: Lines and Tubes: None Lungs: Focal scarring/ atelectasis seen in the right upper lobe. Superimposed pneumonia is difficult to exclude. Pleura: No effusion. No pneumothorax. Cardiomediastinal contours: Unremarkable Bones: Unremarkable IMPRESSION: 1. Focal scarring/ atelectasis seen in the right upper lobe. Superimposed pneumonia is difficult to exclude.
[2024-10-12 11:22] VITALS: PULSE 87; RESP 20; O2SAT 96
[2024-10-12] MEDS: SODIUM CHLORIDE 0.9% 1,000 ML IV ONE (12:21)
[2024-10-12] MEDS: cefTRIAXone 1GM/50ML D5W 50 ML IV ONE (14:49)
[2024-10-12] MEDS: AZITHROMYCIN 500MG/ 250ML 250 ML IV ONE (14:49)
--- NOTE | 2024-10-12 15:13 | DVHHP2 ---
History of Present Illness Reason for Visit: ALOC History of Present Illness This 69-year-old female presents in the ED via EMS with a chief complaint of ALOC. The patient is alert and oriented to name and date of , poor historian, confused. The patient denies chest pain, shortness of breath, abdominal pain, or other acute symptoms. Medical history obtained from medical record, RN, and spouse. Patient's spouse reports that the patient was found on the floor confused. The patient's spouse reports unable to take care of the patient and requesting the patient to be placed and be put on hospice. The patient was recently admitted at this hospital for generalized weakness. Past medical history of CKD, multiple myeloma with Mets, atrial fibrillation, and anemia. Past Medical History As stated in HPI Past Surgical History Denies Family History Reviewed, non-contributory to the management of this case. Past Social History The patient lives at home, denies smoking, alcohol or illicit drugs abuse. Review of Systems Constitutional: Yes: Malaise; No: Fever, Chills, Sweats, Weakness, Other Eyes: No: Pain, Vision change, Conjunctivae inflammation, Eyelid inflammation, Other, Redness ENT: No: Ear pain, Ear discharge, Nose pain, Nose discharge, Nose congestion, Mouth pain, Mouth swelling, Throat pain, Throat swelling, Other Respiratory: No: Cough, Dry, Shortness of breath, SOB with excertion, Wheezing, Hemoptysis, Pleuritic Pain, Sputum, Wheezing, Other Cardiovascular: No: Chest Pain, Palpitations, Orthopnea, Paroxysmal Noc. Dyspnea, Edema, Lt Headedness, Other Gastrointestinal: No: Nausea, Vomiting, Abdominal Pain, Diarrhea, Constipation, Melena, Hematochezia, Other Genitourinary: No Dysuria, No Frequency, No Incontinence, No Hematuria, No Retention, No Other Musculoskeletal: No: other, neck pain, shoulder pain, arm pain, back pain, hand pain, leg pain, foot pain Skin: No: Rash, Lesions, Jaundice, Bruising, Other Neurological: Confusion; No: Weakness, Numbness, Incoordination, Change in speech, Seizures, Other Allergies: Coded Allergies: NO KNOWN ALLERGIES (Unverified , 09/16/24) Exam Vital Signs Vital Signs Date Time Temp Pulse Resp B/P (MAP) Pulse Ox O2 Delivery O2 Flow Rate FiO2 11/17/24 15:00 76 20 171/77 (108) 98 10/12/24 13:00 98.2 98.2 10/12/24 11:22 Room Air* 0 21 General Appearance: Alert (Alert to name and date of ) HEENT: Atraumatic, PERRLA, EOMI, Mucous membr. moist/pink Respiratory: Clear to auscultation, Normal air movement Cardiovascular: Regular rate, Normal S1, Normal S2, No murmurs Abdominal: Normal bowel sounds, Soft, No tenderness Extremities: No clubbing, No cyanosis, No edema, Normal pulses Skin: No rashes, No breakdown, No significant lesion Neuro: Other (Confused) Labs/Xrays Labs Test 10/12/24 11:25 10/12/24 10:26 Range/Units Troponin I High Sensitivity 32 </=34 ng/L White Blood Count 7.0 4.4-10.8 10^3/uL Red Blood Count 3.02 L 4.0-5.20 10^6/uL Hemoglobin 8.9 L 12.2-16.2 g/dL Hematocrit 26.8 L 36.0-46.0 % Mean Corpuscular Volume 88.7 80.0-100.0 fL Mean Corpuscular Hemoglobin 29.5 28.0-32.0 pg Mean Corpuscular Hemoglobin Concent 33.3 32.0-36.0 g/dL Red Cell Distribution Width 15.5 H 11.8-14.3 % Platelet Count 154 140-450 10^3/uL Mean Platelet Volume 7.1 6.9-10.8 fL Neutrophils (%) (Auto) 80.2 H 37.0-80.0 % Lymphocytes (%) (Auto) 10.4 10.0-50.0 % Monocytes (%) (Auto) 7.7 0.0-12.0 % Eosinophils (%) (Auto) 0.7 0.0-7.0 % Basophils (%) (Auto) 1.0 0.0-2.0 % Neutrophils # (Auto) 5.6 1.6-8.6 10 ^3/uL Lymphocytes # (Auto) 0.7 0.4-5.4 10 ^3/uL Monocytes # (Auto) 0.5 0-1.3 10 ^3/uL Eosinophils # (Auto) 0.1 0-0.8 10 ^3/uL Basophils # (Auto) 0.1 0-0.2 10 ^3/uL Nucleated Red Blood Cells 0.0 % Sodium Level 130 L 136-145 mmol/L Potassium Level 4.2 3.5-5.1 mmol/L Chloride Level 98 98-107 mmol/L Carbon Dioxide Level 21 20-31 mmol/L Anion Gap 11 5-15 Blood Urea Nitrogen 43 H 9-23 mg/dL Creatinine 5.20 H 0.550-1.02 mg/dL Glomerular Filtration Rate Calc 8 >90 mL/min BUN/Creatinine Ratio 8.3 L 10.0-20.0 Serum Glucose 133 H 74-106 mg/dL Lactic Acid Level 1.1 0.4-2.0 mmol/L Calcium Level 11.7 H 8.7-10.4 mg/dL B-Type Natriuretic Peptide 269.99 0-100 pg/mL Plasma/Serum Blood Alcohol < 3.0 <10 mg/dL PROCEDURE(s): HWOCT - HEAD WITHOUT CONTRAST REASON: aloc, unwitnessed fall ORDER NUMBER(s): [id number], ACCESSION NUMBER(s): [id number] EXAM: CT HEAD WITHOUT CONTRAST INDICATION: aloc, unwitnessed fall TECHNIQUE: CT of the head without intravenous contrast. Radiation Dose : 1. Head: CT Dose: CTDI volume is 54 mGy. Dose-length product is 971 mGy*cm The dose indicators for CT are the volume Computed Tomography (CT) Dose Index (CTDIvol) and the Dose Length Product (DLP), and are measured in units of mGy and mGy-cm, respectively. These indicators are not patient dose, but values generated from the CT scanner acquisition factors. The report includes radiation exposure data for exposures received during this examination. COMPARISON: MRI BRAIN HEAD WO CONTRAST on DOS: 10/07/24, CT HEAD WITHOUT CONTRAST on DOS: 10/06/24 FINDINGS: Limited examination due to patient motion during time of scan. Given this limitation: There is no evidence of acute intracranial hemorrhage, extra-axial collection, mass effect, midline shift, herniation or hydrocephalus. The ventricles, sulci and cisterns are age appropriate. The camilo-white differentiation is intact. Patchy periventricular and subcortical white matter hypoattenuation is nonspecific but may be related to small vessel ischemic disease. The visualized paranasal sinuses and mastoid air cells are clear. The surrounding soft tissues and osseous structures are unremarkable. IMPRESSION: 1. No acute intracranial abnormality. Assessment/Plan Assessment/Plan #Acute metabolic encephalopathy # rule out pneumonia # rule out uti Admit to medical unit CT head reviewed Azithromycin, ceftriaxone Blood and urine culture # MARTINEZ on CKD stage 5 ivf Nephrology consult # multiple myeloma metastasis Goal of care--placement and hospice care per spouse request. Kristian [phone] Social service consult # hyperthyroidism Methimazole # paroxysmal AFib Amiodarone Lovenox prophylaxis Medical plan discussed with spouse, patient, and RN Plan discussed with: Patient, Spouse My Orders Orders - YANETH ANGELES Procedure Category Date Status Time Admit ADMIT 10/12/24 Transmitted 14:57 Code Status CODE 10/12/24 Transmitted 14:57 Fall Risk Precautions ESTRELLA 10/12/[address] 14:57 Complete Blood Count LAB 10/13/24 Verified 04:00 Comprehensive LAB 10/13/24 Verified Metabolic Panel 04:00 Cardiac DIET 10/12/24 Transmitted Diet-2gna,Lofat,Lochol Dinner Condition: Fair ESTRELLA 10/12/24 In Process 14:57 * Potato Grader CONS 10/12/24 Transmitted Consult Date of Service: Oct 12, 2024 Billing Provider: YANETH ANGELES Common Visit Codes: [id number] INP/OBS CARE (HIGH) YANETH ANGELES Oct 12, 2024 15:13
[2024-10-12] MEDS ORDERED: hydrALAZINE HCL 20 MG/ML VL IV PRN (15:15)
[2024-10-12] MEDS: SODIUM CHLORIDE 0.9% 1,000 ML IV SCH (16:28)
[2024-10-12] MEDS: ENOXAPARIN SOD 30 MG/0.3 ML SYRINGE SC ONE (16:47)
[2024-10-12 21:30] VITALS: BP 148/83; PULSE 89; RESP 19; TEMP 98.5; O2SAT 96
[2024-10-12] MEDS: methIMAzole 5 MG TAB PO SCH (23:00)
[2024-10-12] MEDS: AMIODARONE HCL 200 MG TAB PO SCH (23:01)
[2024-10-13 01:00] VITALS: BP 138/80; PULSE 90; RESP 20; TEMP 97.7; O2SAT 97
[2024-10-13 05:00] VITALS: BP 130/64; PULSE 81; RESP 20; TEMP 97.8; O2SAT 95
[2024-10-13 06:44] LABS: Basophils # (auto) 0.1 10 ^3/uL (0-0.2); Eosinophils # (auto) 0.1 10 ^3/uL (0-0.8); Eosinophils % (auto) 1.2 % (0.0-7.0); Hemoglobin 7.7 g/dL (12.2-16.2); Lymphocytes # (auto) 0.6 10 ^3/uL (0.4-5.4); Monocytes # (auto) 0.5 10 ^3/uL (0-1.3); Neutrophils # (auto) 5.7 10 ^3/uL (1.6-8.6); Red Blood Cells 2.52 10^6/uL (4.0-5.20)
[2024-10-13 06:46] LABS: Basophils % (auto) 1.1 % (0.0-2.0); Hematocrit 22.1 % (36.0-46.0); Lymphocytes % (auto) 8.5 % (10.0-50.0); Mean Corpuscular Hemoglobin 30.4 pg (28.0-32.0); Mean Corpuscular Hgb Conc. 34.6 g/dL (32.0-36.0); Mean Corpuscular Volume 87.8 fL (80.0-100.0); Monocytes % (auto) 7.4 % (0.0-12.0); Neutrophils % (auto) 81.8 % (37.0-80.0); Platelet Count (auto) 141 10^3/uL (140-450); Red Cell Distribution Width 15.3 % (11.8-14.3)
[2024-10-13 06:48] LABS: Alanine Aminotransferase 11 U/L (7-40); Albumin 3.2 g/dL (3.2-4.8); Alkaline Phosphatase 81 U/L (46-116); Anion Gap 10 (5-15); Aspartate Aminotransferase 17 U/L (13-40); BUN/Creatinine Ratio 7.6 (10.0-20.0); Bilirubin, Total 0.3 mg/dL (0.2-1.0); Blood Urea Nitrogen 43 mg/dL (9-23); Calcium 11.6 mg/dL (8.7-10.4); Carbon Dioxide 21 mmol/L (20-31); Chloride 101 mmol/L (98-107); Glucose 89 mg/dL (74-106); Potassium 4.6 mmol/L (3.5-5.1); Sodium 132 mmol/L (136-145); Total Protein 7.3 g/dL (5.7-8.2)
[2024-10-13 08:15] VITALS: PULSE 91; RESP 19; O2SAT 93
[2024-10-13 09:00] VITALS: BP 132/68; PULSE 84; RESP 16; TEMP 99.5; O2SAT 96
[2024-10-13] MEDS: cefTRIAXone 1GM/50ML D5W 50 ML IV SCH (09:15)
[2024-10-13 09:43] LABS: Urine Bacteria None Seen /hpf (None Seen)
[2024-10-13] MEDS: ENOXAPARIN SOD 30 MG/0.3 ML SYRINGE SC SCH (09:44)
[2024-10-13 09:48] LABS: Urine Blood TRACE /uL (Negative); Urine Clarity Clear (Clear); Urine Color STRAW (Yellow); Urine Protein, UAD 1+ (Negative); Urine Specific Gravity 1.008 (1.001-1.035); Urine Urobilinogen Normal (Negative); Urine WBC 6 /hpf (0 - 5); Urine pH 6.5 (5.0-9.0)
[2024-10-13 10:08] LABS: Amphetamine Screen, Urine Neg (NEGATIVE); Barbiturate Scree,Urine Neg (NEGATIVE)
[2024-10-13 10:10] LABS: Benzodiazephine Screen, Urine Neg (NEGATIVE)
[2024-10-13 10:11] LABS: Cannabinoid Screen, Urine Neg (NEGATIVE); Cocaine Screen, Urine Neg (NEGATIVE); Opiate Scree,Urine Neg (NEGATIVE); Phencyclidine Screen, Urine Neg (NEGATIVE)
[2024-10-13] MEDS: AZITHROMYCIN 500MG/ 250ML 250 ML IV SCH (10:38)
[2024-10-13 13:00] VITALS: BP 116/56; PULSE 78; RESP 16; TEMP 98.1; O2SAT 97
--- NOTE | 2024-10-13 14:49 | DVHDS2 ---
Discharge Summary Date of Admission Oct 12, 2024 at 14:57 Date of Discharge: Oct 13, 2024 Labs/Diagnostic Data: Laboratory Results Test 10/13/24 09:00 10/13/24 05:52 10/12/24 11:25 10/12/24 10:26 Urine Color Straw (Yellow) Urine Clarity Clear (Clear) Urine pH 6.5 (5.0-9.0) Urine Specific Raymond 1.008 (1.001-1.035) Urine Protein 1+ (Negative) Urine Ketones Negative (Negative) Urine Blood Trace /uL (Negative) Urine Nitrite Negative (Negative) Urine Bilirubin Negative (Negative) Urine Urobilinogen Normal mg/dL (Negative) Urine Leukocyte Esterase 1+ /uL (Negative) Urine RBC 1 /hpf (0 - 4) Urine WBC 6 /hpf (0 - 5) Urine Squamous Epithelial Cells Few /hpf (<5) Urine Bacteria None seen /hpf (None Seen) Urine Glucose Normal mg/dL (Normal) Urine Opiates Screen Neg (NEGATIVE) Urine Fentanyl Screen Neg (NEGATIVE) Urine Barbiturates Screen Neg (NEGATIVE) Urine Phencyclidine Screen Neg (NEGATIVE) Urine Amphetamines Screen Neg (NEGATIVE) Urine Benzodiazepines Screen Neg (NEGATIVE) Urine Cocaine Screen Neg (NEGATIVE) Urine Cannabinoids Screen Neg (NEGATIVE) White Blood Count 7.0 10^3/uL (4.4-10.8) Red Blood Count 2.52 10^6/uL (4.0-5.20) Hemoglobin 7.7 g/dL (12.2-16.2) Hematocrit 22.1 % (36.0-46.0) Mean Corpuscular Volume 87.8 fL (80.0-100.0) Mean Corpuscular Hemoglobin 30.4 pg (28.0-32.0) Mean Corpuscular Hemoglobin Concent 34.6 g/dL (32.0-36.0) Red Cell Distribution Width 15.3 % (11.8-14.3) Platelet Count 141 10^3/uL (140-450) Mean Platelet Volume 7.3 fL (6.9-10.8) Neutrophils (%) (Auto) 81.8 % (37.0-80.0) Lymphocytes (%) (Auto) 8.5 % (10.0-50.0) Monocytes (%) (Auto) 7.4 % (0.0-12.0) Eosinophils (%) (Auto) 1.2 % (0.0-7.0) Basophils (%) (Auto) 1.1 % (0.0-2.0) Neutrophils # (Auto) 5.7 10 ^3/uL (1.6-8.6) Lymphocytes # (Auto) 0.6 10 ^3/uL (0.4-5.4) Monocytes # (Auto) 0.5 10 ^3/uL (0-1.3) Eosinophils # (Auto) 0.1 10 ^3/uL (0-0.8) Basophils # (Auto) 0.1 10 ^3/uL (0-0.2) Nucleated Red Blood Cells 0.0 % Sodium Level 132 mmol/L (136-145) Potassium Level 4.6 mmol/L (3.5-5.1) Chloride Level 101 mmol/L (98-107) Carbon Dioxide Level 21 mmol/L (20-31) Anion Gap 10 (5-15) Blood Urea Nitrogen 43 mg/dL (9-23) Creatinine 5.65 mg/dL (0.550-1.02) Glomerular Filtration Rate Calc 8 mL/min (>90) BUN/Creatinine Ratio 7.6 (10.0-20.0) Serum Glucose 89 mg/dL (74-106) Calcium Level 11.6 mg/dL (8.7-10.4) Total Bilirubin 0.3 mg/dL (0.2-1.0) Aspartate Amino Transferase (AST) 17 U/L (13-40) Alanine Aminotransferase (ALT) 11 U/L (7-40) Alkaline Phosphatase 81 U/L (46-116) Total Protein 7.3 g/dL (5.7-8.2) Albumin 3.2 g/dL (3.2-4.8) Troponin I High Sensitivity 32 ng/L (</=34) Thyroid Stimulating Hormone (TSH) 0.02 uIU/mL (0.55-4.78) Lactic Acid Level 1.1 mmol/L (0.4-2.0) B-Type Natriuretic Peptide 269.99 pg/mL (0-100) Plasma/Serum Blood Alcohol < 3.0 mg/dL (<10) Other Laboratory Tests 10/13/24 05:52 Brief Hx & Hospital Course: This 69-year-old female presents in the ED via EMS with a chief complaint of ALOC. The patient is alert and oriented to name and date of , poor historian, confused. The patient denies chest pain, shortness of breath, abdominal pain, or other acute symptoms. Medical history obtained from medical record, RN, and spouse. Patient's spouse reports that the patient was found on the floor confused. The patient's spouse reports unable to take care of the patient and requesting the patient to be placed and be put on hospice. Patient has a diagnosis of multiple myeloma, will be discharged home. Hospice will be setup at home. Condition at Discharge: Poor Final Diagnosis/Problems List #Acute metabolic encephalopathy # MARTINEZ on CKD stage 5 # multiple myeloma metastasis Discharge Disposition: Home Discharge Instruct/Medications Activity: Light activity Follow Up/Referral: PER HOSPICE MD Medications: PER HOSPICE MD Discharge Statement: "Patient was advised to return to the ER or call 911 if any headaches, dizziness, shortness of breath, chest pain, abdominal pain, bleeding, fevers, or worsening of medical condition. Patient was counseled about treatment plan, medications, possible side effects, patientverbalized understanding. All questions were answered to the best of my ability. This discharge took greater then 30 minutes in planning, reviewing documentation, counseling the patient, and discussing with other team members." ASSESSMENT ASSESSMENT Assessment Date of Service: Oct 13, 2024 Billing Provider: JANELLE FULTON MD Common Visit Codes: 33234-YKV/OBS DISCH DAY >30min JANELLE FULTON MD Oct 13, 2024 14:49
--- NOTE | 2024-10-13 15:45 | DVHCONRES ---
Date Seen: Oct 13, 2024 Resident Creating Document: MANJU MAE RESIDENT Referring Physician Suly JONES Reason for Consultation ESRD History of Present Illness Patient is 69-year-old female with past medical history of anemia, atrial fibrillation, recently diagnosed multiple myeloma , chronic kidney disease brought to the hospital via EMS for altered level of consciousness. As per , patient became altered, not responding to questions that is why patient was brought to the hospital. Patient was recently diagnosed with multiple myeloma and kidney disease and following Dr. Lewis in outpatient setting. Patient did not receive any chemotherapy till now. Patient continued to complaining of pain in left hip, generalized weak. Patient denying any other symptoms at this point including chest pain, shortness of breath, sensory or motor deficits, fever, chills, any other symptoms at this point. Nephrology consultation was done for evaluation end stage renal disease possible requiring dialysis. Past Medical History anemia, atrial fibrillation, recently diagnosed multiple myeloma , chronic kidney disease Past Surgical History None. Family History: Alcoholism G8 FATHER Cardiovascular disease PATERNAL GRANDFATHER Cerebrovascular accident (CVA) Diabetes mellitus MATERNAL GRANDMOTHER FH: breast cancer G8 MOTHER FH: dementia G8 MOTHER Social History Chronic marijuana use. No other history use of illicit drug use. Allergies: Coded Allergies: NO KNOWN ALLERGIES (Unverified , 09/16/24) Home Meds Active Scripts Calcitonin ([place]) (Calcitonin [place]) 200 Unit/Act Spr, 200 UNIT NA DAILY for 14 Days, #10 BOTTLE 1 SPRAY INTO ALTERNATE NOSTRIL DAILY Prov:MAJORKAITLYNN RESIDENT 09/23/24 Amiodarone HCl (Amiodarone Hydrocloride) 200 Mg Tab, 200 MG PO BID for 30 Days, #60 TAB Prov:KAITLYNN MAJOR RESIDENT 09/23/24 Methimazole (Methimazole) 5 Mg Tab, 5 MG PO TID for 30 Days, #90 TAB Prov:MORIAHKAITLYNN RESIDENT 09/23/24 Reported Medications Omeprazole (Gnp Omeprazole) 20 Mg Tab, 20 MG PO, TAB 09/21/24 Current Medications Current Medications Medications (Trade) Dose Ordered Sig/Juli Route PRN Reason Start Time Stop Time Status Last Admin Amiodarone HCl (Cordarone Tablet) 200 mg BID PO 10/12/24 22:00 10/13/24 09:44 Methimazole (Tapazole) 5 mg TID PO 10/12/24 22:00 10/13/24 14:27 Ceftriaxone Sodium 50 ml @ 100 mls/hr DAILY@09 IV 10/13/24 09:00 10/13/24 09:15 Azithromycin 250 ml @ 125 mls/hr DAILY IV 10/13/24 10:00 10/13/24 10:38 Enoxaparin Sodium (Lovenox) 30 mg DAILY SC 10/13/24 10:00 10/13/24 09:44 Review of Systems Patient continued to complaining of left-sided hip pain, generalized weakness. Denied any other symptoms Eyes: No Pain, No Vision change, No Conjunctivae inflammation, No Eyelid inflammation, No Other, No Redness ENT: No Ear pain, No Ear discharge, No Nose pain, No Nose discharge, No Nose congestion, No Mouth pain, No Mouth swelling, No Throat pain, No Throat swelling, No Other Cardiovascular: No Chest Pain, No Palpitations, No Orthopnea, No Paroxysmal N oc. Dyspnea, No Edema, No Lt Headedness, No Other Respiratory: No Cough, No Dry, No Shortness of breath, No SOB with excertion, No Wheezing, No Hemoptysis, No Pleuritic Pain, No Sputum, No Other Gastrointestinal: No Nausea, No Vomiting, No Abdominal Pain, No Diarrhea, No Constipation, No Melena, No Hematochezia, No Other Genitourinary: No Dysuria, No Frequency, No Incontinence, No Hematuria, No Retention, No Other Musculoskeletal: No other, No neck pain, No shoulder pain, No arm pain, No back pain, No hand pain, No leg pain, No foot pain Skin: No Rash, No Lesions, No Jaundice, No Bruising, No Other Vital Signs Vital Signs Date Time Temp Pulse Resp B/P (MAP) Pulse Ox O2 Delivery O2 Flow Rate FiO2 10/13/24 13:00 98.1 78 16 116/56 (76) 97 98.1 10/13/24 08:15 Room Air* 0 21 Physical Exam White frail woman, in mild distress General appearance: Malnourished. Head Exam: Normal inspection Neck Exam: Normal inspection. Non-tender. Normal alignment Pulmonary/Respiratory: Chest non-tender. Clear bilateral breath sounds Cardiovascular/Chest: Regular rate and rhythm. No murmurs. No JVD. Peripheral Pulses: 2+ Radial (R). 2+ Radial (L). 2+ Pedal (R). 2+ Pedal (L) Abdominal Exam: Normal bowel sounds. Soft. Nontender. No hepatospenomegaly. No masses Ankle Exam: Negative ankle edema Lower extremities: Negative lower extremity edema Neuro/Mental Status: A&O x4. Coherent Labs/Diagnostic Data Labs Test 10/13/24 09:00 10/13/24 05:52 10/12/24 11:25 10/12/24 10:26 Range/Units Urine Color Straw Yellow Urine Clarity Clear Clear Urine pH 6.5 5.0-9.0 Urine Specific [place] 1.008 1.001-1.035 Urine Protein 1+ H Negative Urine Ketones Negative Negative Urine Blood Trace H Negative /uL Urine Nitrite Negative Negative Urine Bilirubin Negative Negative Urine Urobilinogen Normal Negative mg/dL Urine Leukocyte Esterase 1+ Negative /uL Urine RBC 1 0 - 4 /hpf Urine WBC 6 0 - 5 /hpf Urine Squamous Epithelial Cells Few <5 /hpf Urine Bacteria None seen None Seen /hpf Urine Glucose Normal Normal mg/dL Urine Opiates Screen Neg NEGATIVE Urine Fentanyl Screen Neg NEGATIVE Urine Barbiturates Screen Neg NEGATIVE Urine Phencyclidine Screen Neg NEGATIVE Urine Amphetamines Screen Neg NEGATIVE Urine Benzodiazepines Screen Neg NEGATIVE Urine Cocaine Screen Neg NEGATIVE Urine Cannabinoids Screen Neg NEGATIVE White Blood Count 7.0 4.4-10.8 10^3/uL Red Blood Count 2.52 L 4.0-5.20 10^6/uL Hemoglobin 7.7 L 12.2-16.2 g/dL Hematocrit 22.1 #L 36.0-46.0 % Mean Corpuscular Volume 87.8 80.0-100.0 fL Mean Corpuscular Hemoglobin 30.4 28.0-32.0 pg Mean Corpuscular Hemoglobin Concent 34.6 32.0-36.0 g/dL Red Cell Distribution Width 15.3 H 11.8-14.3 % Platelet Count 141 140-450 10^3/uL Mean Platelet Volume 7.3 6.9-10.8 fL Neutrophils (%) (Auto) 81.8 H 37.0-80.0 % Lymphocytes (%) (Auto) 8.5 L 10.0-50.0 % Monocytes (%) (Auto) 7.4 0.0-12.0 % Eosinophils (%) (Auto) 1.2 0.0-7.0 % Basophils (%) (Auto) 1.1 0.0-2.0 % Neutrophils # (Auto) 5.7 1.6-8.6 10 ^3/uL Lymphocytes # (Auto) 0.6 0.4-5.4 10 ^3/uL Monocytes # (Auto) 0.5 0-1.3 10 ^3/uL Eosinophils # (Auto) 0.1 0-0.8 10 ^3/uL Basophils # (Auto) 0.1 0-0.2 10 ^3/uL Nucleated Red Blood Cells 0.0 % Sodium Level 132 L 136-145 mmol/L Potassium Level 4.6 3.5-5.1 mmol/L Chloride Level 101 98-107 mmol/L Carbon Dioxide Level 21 20-31 mmol/L Anion Gap 10 5-15 Blood Urea Nitrogen 43 H 9-23 mg/dL Creatinine 5.65 H 0.550-1.02 mg/dL Glomerular Filtration Rate Calc 8 >90 mL/min BUN/Creatinine Ratio 7.6 L 10.0-20.0 Serum Glucose 89 74-106 mg/dL Calcium Level 11.6 H 8.7-10.4 mg/dL Total Bilirubin 0.3 0.2-1.0 mg/dL Aspartate Amino Transferase (AST) 17 13-40 U/L Alanine Aminotransferase (ALT) 11 7-40 U/L Alkaline Phosphatase 81 46-116 U/L Total Protein 7.3 5.7-8.2 g/dL Albumin 3.2 3.2-4.8 g/dL Troponin I High Sensitivity 32 </=34 ng/L Thyroid Stimulating Hormone (TSH) 0.02 L 0.55-4.78 uIU/mL Lactic Acid Level 1.1 0.4-2.0 mmol/L B-Type Natriuretic Peptide 269.99 0-100 pg/mL Plasma/Serum Blood Alcohol < 3.0 <10 mg/dL Microbiology Date/Time Source Procedure Growth Status 10/12/24 23:37 Nose MRSA Screen - Final Complete 10/12/24 15:24 Blood Blood Culture - Preliminary NO GROWTH AFTER 24 HOURS OF INCUBATION. 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 Stubbs -Patient and agrees with home hospice -No plan for dialysis she is going on hospice. -No further recommendation: Follow with hospice doctor. Time spent greater than 65 minutes. Majority of time spent talking to patient [id number]. Thank you for consultation. Addendum Patient seen and examined, plan discussed with resident. Agree with above, we will follow closely Plan discussed with: Patient, Spouse MANJU MAE Oct 13, 2024 15:45 ESME STUBBS MD Oct 13, 2024 21:51
== END 2024-10-13 16:00 | disposition hospice, home (50) | DRG 840 ==
LOC: EDBD 10:00 → ER 10:00 → OVERFLOW 14:57 → WEST WING 21:30
PROVIDERS: ADMIT Registered Nurse; ATTEND Internal Medicine
DX: C90.00 Multiple myeloma not having achieved remission (principal); G93.41 Metabolic encephalopathy; J15.69 Pneumonia due to other Gram-negative bacteria; J15.9 Unspecified bacterial pneumonia; N30.01 Acute cystitis with hematuria; N18.5 Chronic kidney disease, stage 5; N17.9 Acute kidney failure, unspecified; I48.0 Paroxysmal atrial fibrillation; E05.90 Thyrotoxicosis, unspecified without thyrotoxic crisis or storm; E83.52 Hypercalcemia; D50.9 Iron deficiency anemia, unspecified; Z51.5 Encounter for palliative care; Z79.899 Other long term (current) drug therapy
CPT/HCPCS: 36415; 70450; 71045; 80048; 80053; 80307; 80320; 81001; 83605; 83880; 84443; 84484; 85025; 87040; 87081; 96365; 96366; G0378

== ENCOUNTER → 2024-10-16 | Outpatient (CLI) | payer OTHER ==
[2024-10-16 11:51] LABS: Alanine Aminotransferase 11 U/L (7-40); Albumin 3.4 g/dL (3.2-4.8); Alkaline Phosphatase 83 U/L (46-116); Anion Gap 9 (5-15); Aspartate Aminotransferase 20 U/L (13-40); BUN/Creatinine Ratio 7.9 (10.0-20.0); Bilirubin, Total 0.3 mg/dL (0.2-1.0); Blood Urea Nitrogen 43 mg/dL (9-23); Carbon Dioxide 24 mmol/L (20-31); Chloride 96 mmol/L (98-107); Glucose 121 mg/dL (74-106); Potassium 4.7 mmol/L (3.5-5.1); Sodium 129 mmol/L (136-145); Total Protein 7.9 g/dL (5.7-8.2)
== END | disposition home or self-care (01) ==
LOC: LAB 10:51
PROVIDERS: ATTEND Internal Medicine
DX: N18.5 Chronic kidney disease, stage 5 (principal); C90.00 Multiple myeloma not having achieved remission
CPT/HCPCS: 36415; 80053; 84439; 84443

== ENCOUNTER 2024-10-17 09:58 | Inpatient (IN) | payer OTHER ==
[~2024-10-17] VITALS: Ht 175.3 cm; Wt 53.0 kg
--- NOTE | 2024-10-17 10:42 | ED.PDOC ---
History of Present Illness HPI Comments HPI: Poor Historian. 69 y.o female presents to the ED for an evaluation of abnormal labs. Patient reports she had routine lab work done yesterday, received a call today from PCP regarding elevated calcium and was referred to the ED for further evaluation. Patient complains of some nausea with no other significant acute symptoms. Patient was seen at this hospital on 10/12/24, admitted for metabolic encephalology and discharged the following day with final diagnoses of acute metabolic encephalology, MARTINEZ, CKD stage 5, and multiple myeloma metastasis. No other complaint reported by patient at this time. Patient specifically denies any chest pain shortness of breath or any acute symptoms. Patient denies any allergies Vital Signs Temp: 99.5 F RR: 20 SpO2: 97% RA HR: 76 B/P: 125/55 PMHx: Multiple myeloma metastasis, CKD stage 5, DC, UTI's, AFIB, Anemia, thyroid disease SHx: Denies EKG taken in triage during assessment, showed abnormalities and Dr. Pedro was called at 10:28am . REVIEW OF SYSTEMS: CONSTITUTIONAL: Denies acute: fever, diaphoresis, chills, generalized weakness. HEAD: Denies acute: headache, photophobia Eyes: Denies acute: Double vision, vision loss, eye pain, eye discharge. EARS: Denies acute: tinnitus, hearing loss, ear discharge, ear pain, THROAT: Denies acute: sore throat, swelling, difficulty swallowing , pain with swallowing, change in voice. NECK: Denies acute: neck pain, neck swelling, stiff neck. HEART: Denies acute : chest pain, palpitations, LUNGS: Denies acute: SOB, wheezing, cough, hemoptysis ABDOMEN: Denies acute: abdominal pain, Vomiting, diarrhea, melena , hematemesis, hematochezia SKIN: Denies acute: rash, redness, lesions, itchiness. EXTREMITIES: Denies acute: calf pain, numbness, tingling, weakness, denies pain in extremity. Denies acute: Low back pain. Neuro: Denies acute: focal neurological deficit, motor or sensory focal neurological deficit, tremors, seizure like activity, confusion, dizziness, change in mental status, loss of bowel or bladder function, cauda equina like symptoms. : Denies acute: dysuria, hematuria, flank pain, increase in urinary frequency. PSYCH: Denies acute: hallucination, suicidal ideation, homicidal ideation. FEMALE: Denies acute: abnormal vaginal bleeding, foul odor, unusual discharge. PHYSICAL EXAM: General: no acute distress, awake and alert. Head: normocephalic, atraumatic. Neck: supple, trachea is midline, no swelling. Throat: Normal phonation. Eyes:, no erythema, no purulent discharge, no proptosis, no icterus. Heart: regular rate, regular rhythm, no significant murmur appreciated. Lungs: no apparent respiratory distress, Able to speak in full sentences. No wheezing, no rhonchi, no crackles. No stridors Clear to auscultation bilaterally. Abdomen: non tender to palpation, non distended, soft, no guarding, no rebound, + bowel sounds. Neuro: Awake, Alert, oriented to name, self, situation, follows commands GCS=15. Speech is normal. Skin: no petechia, no purpura, no cyanosis, slightly-pale, not jaundice. Lower extremities: --trace bilateral - Pitting edema no deformity, no focal swelling, no calf TTP. Makes eye contact. moves all four extremities. Face: no apparent facial droop. Chief Complaint: Abnormal LAB's Time Seen by MD: 10:25 Primary Care Provider: steph Hogan Notes: Nurses Notes, Allergies Allergies: Coded Allergies: NO KNOWN ALLERGIES (Unverified , 09/16/24) Home Meds Active Scripts Calcitonin ([place]) (Calcitonin [place]) 200 Unit/Act Spr, 200 UNIT NA DAILY for 14 Days, #10 BOTTLE 1 SPRAY INTO ALTERNATE NOSTRIL DAILY Prov:KAITLYNN MAJOR RESIDENT 09/23/24 Amiodarone HCl (Amiodarone Hydrocloride) 200 Mg Tab, 200 MG PO BID for 30 Days, #60 TAB Prov:KAITLYNN MAJOR RESIDENT 09/23/24 Methimazole (Methimazole) 5 Mg Tab, 5 MG PO TID for 30 Days, #90 TAB Prov:KAITLYNN MAJOR RESIDENT 09/23/24 Reported Medications Omeprazole (Gnp Omeprazole) 20 Mg Tab, 20 MG PO, TAB 09/21/24 Information Source: Patient Mode of Arrival: Ambulatory Past Medical History PAST MEDICAL HISTORY: AFIB, Anemia, Cancer, CKF, DC, Thyroid, UTI'S Surgical History: Denies all surgeries LABORATORY ENGINEER History: Denies all LABORATORY ENGINEER Hx Family History Family History: Unknown Social History Smoker: Non-Smoker Alcohol: Denies ETOH Use Drugs: Marijuana Lives In: Home Was a procedure done? Was a procedure done?: No Differential Dx Considerations may include: Includes but not limited to thyroid disease, encephalopathy, electrolyte abnormality, sepsis, infection, intracranial pathology, drug adverse effects, arrhythmia, kidney insufficiency, ACS, CVA, malignancy, anemia X-Ray, Labs, Meds, VS Vital Signs Date Time Temp Pulse Resp B/P (MAP) Pulse Ox O2 Delivery O2 Flow Rate FiO2 10/17/24 11:45 67 18 99 Nasal Cannula* 2 28 10/17/24 11:20 68 10/17/24 10:24 69 10/17/24 10:12 99.5 76 20 125/55 (78) 97 10/17/24 10:12 99.5 76 20 125/55 (78) 97 99.5 Lab Test 10/17/24 11:50 10/17/24 10:50 Range/Units Troponin I High Sensitivity 23 22 </=34 ng/L White Blood Count 6.4 4.4-10.8 10^3/uL Red Blood Count 2.61 L 4.0-5.20 10^6/uL Hemoglobin 8.0 L 12.2-16.2 g/dL Hematocrit 23.4 L 36.0-46.0 % Mean Corpuscular Volume 89.6 80.0-100.0 fL Mean Corpuscular Hemoglobin 30.8 28.0-32.0 pg Mean Corpuscular Hemoglobin Concent 34.4 32.0-36.0 g/dL Red Cell Distribution Width 15.5 H 11.8-14.3 % Platelet Count 155 140-450 10^3/uL Mean Platelet Volume 7.0 6.9-10.8 fL Neutrophils (%) (Auto) 75.5 37.0-80.0 % Lymphocytes (%) (Auto) 11.3 10.0-50.0 % Monocytes (%) (Auto) 10.1 0.0-12.0 % Eosinophils (%) (Auto) 2.1 0.0-7.0 % Basophils (%) (Auto) 1.0 0.0-2.0 % Neutrophils # (Auto) 4.9 1.6-8.6 10 ^3/uL Lymphocytes # (Auto) 0.7 0.4-5.4 10 ^3/uL Monocytes # (Auto) 0.6 0-1.3 10 ^3/uL Eosinophils # (Auto) 0.1 0-0.8 10 ^3/uL Basophils # (Auto) 0.1 0-0.2 10 ^3/uL Nucleated Red Blood Cells 0.0 % Sodium Level 129 L 136-145 mmol/L Potassium Level 5.0 3.5-5.1 mmol/L Chloride Level 96 L 98-107 mmol/L Carbon Dioxide Level 24 20-31 mmol/L Anion Gap 9 5-15 Blood Urea Nitrogen 40 H 9-23 mg/dL Creatinine 5.14 H 0.550-1.02 mg/dL Glomerular Filtration Rate Calc 9 >90 mL/min BUN/Creatinine Ratio 7.8 L 10.0-20.0 Serum Glucose 98 74-106 mg/dL Lactic Acid Level 1.1 0.4-2.0 mmol/L Calcium Level 13.2 *H 8.7-10.4 mg/dL Magnesium Level 2.0 1.6-2.6 mg/dL Total Bilirubin 0.3 0.2-1.0 mg/dL Aspartate Amino Transferase (AST) 17 13-40 U/L Alanine Aminotransferase (ALT) 12 7-40 U/L Alkaline Phosphatase 81 46-116 U/L B-Type Natriuretic Peptide 290.94 0-100 pg/mL Total Protein 8.0 5.7-8.2 g/dL Albumin 3.6 3.2-4.8 g/dL [place] [id number] Ph: [phone] DIAGNOSTIC IMAGING Diagnostic Imaging Report : [id number] Signed PATIENT: PALMIRA VEE ACCT: [id number] UNIT: [id number] : 1955 LOC: ER ROOM / BED: / AGE / SEX: 69 / F ADM STATUS: REG ER SERVICE [id number] ORDERING PHYSICIAN: LINCOLN MOSER DO PROCEDURE(s): CXRP - CHEST PORTABLE REASON: ABN EKG ORDER NUMBER(s): [id number], ACCESSION NUMBER(s): [id number] XY CHEST PORTABLE, HISTORY: ABN EKG COMPARISON: XY CHEST PORTABLE on DOS: 10/12/24, XY CHEST XRAY 1 VIEW on DOS: 10/06/24, XY CHEST PORTABLE on DOS: 09/21/24 XY CHEST PORTABLE on DOS: 10/12/24, XY CHEST XRAY 1 VIEW on DOS: 10/06/24, XY CHEST PORTABLE on DOS: 09/21/24 TECHNICAL DATA: 1 view of the chest was obtained. FINDINGS: Lines and tubes: None Cardiomediastinal silhouette: normal Pulmonary vasculature: normal Lung expansion: normal Lung airspace: normal Lung interstitium: normal Pleura: normal Pneumothorax: no Bones: Unremarkable Other: [place] left lower lobe pulmonary nodule. IMPRESSION: No acute intrathoracic abnormality. ATED BY: MANDEEP LA MD DICTATED DATE/TIME: 10/17/241107 SIGNED BY: MANDEEP LA MD SIGNED DATE/TIME: 10/17/241107 CC: Time of 1ST Reevaluation: 10:41 Reevaluation 1ST: Unchanged Time of 2ND Reevaluation: 11:38 (Dr DR. DICKERSON at bedside. Reports he will not take patient to laboratory machinist as she is not a canidate for intervention.States he knows patient well. DR. DICKERSON saw EKG prior to seeing patient, which he called STEMI ) Patient Education/Counseling: Diagnosis, Treatment Family Education/Counseling: No Family Present Comments Patient presented with the above HPI.---hypercalcemia---workup was initiated. patient was found with the above mentioned diagnosis. EKG showed STEMI. Cardiology was consulted immediately. They said to activate STEMI alert. However after careful evaluation of the patient's conditions and morbidities and prognosis and history of metastatic disease, they decided not to take the patient to the laboratory machinist and to follow a conservative therapy. Patient had no chest pain or shortness of breath on presentation. Patient ED course and VS have been stabilized. Patient has been reassessed in the ED and remained in a stable condition. Pertinent incidental findings were discussed with the patient and/or family. Patient/family voices understanding and is agreeable with plan. Patient has been observed in the ED adequate length of time to insure improveme nt/stability. Cardiology was consulted 1st Dr. Pedro then Dr. Meléndez patient was admitted to the medicine team for further evaluation and treatment of their presentation. All the reports of any imaging studies that were ordered by myself were reviewed by myself. Departure 1 Departure Time of Disposition: 11:19 Impression: Primary Impression: STEMI (ST elevation myocardial infarction) Additional Impressions: Anemia Hypercalcemia Acute renal failure Disposition: 09 ADMITTED INPATIENT Admit to: Tele Condition: Guarded Discharged With: Self Critical Care Note Critical Care Time?: Yes (1 hr-critical care time only) Heart Score Heart Score: Heart Score Response (Comments) Value History Slightly Suspicious [address]-Deviation 2 Age >65 2 Risk Factors >3 or Hx ASHD 2 Troponin Normal limit 0 Total 6 I personally scribed for LINCOLN MOSER DO ([email or web address]) on 10/17/24 at 10:41. Electronically submitted by Maryuri Gonzalez ([email or web address]). I personally scribed for LINCOLN MOSER DO ([email or web address]) on 10/17/24 at 13:46. Electronically submitted by Maryuri Gonzalez ([email or web address]). I personally scribed for LINCOLN MOSER DO ([email or web address]) on 10/17/24 at 13:50. Electronically submitted by Maryuri Gonzalez ([email or web address]). LINCOLN MOSER DO Oct 17, 2024 10:41
[2024-10-17 11:10] LABS: Basophils # (auto) 0.1 10 ^3/uL (0-0.2); Eosinophils # (auto) 0.1 10 ^3/uL (0-0.8); Eosinophils % (auto) 2.1 % (0.0-7.0); Hematocrit 23.4 % (36.0-46.0); Lymphocytes # (auto) 0.7 10 ^3/uL (0.4-5.4); Lymphocytes % (auto) 11.3 % (10.0-50.0); Mean Corpuscular Hemoglobin 30.8 pg (28.0-32.0); Mean Corpuscular Hgb Conc. 34.4 g/dL (32.0-36.0); Mean Corpuscular Volume 89.6 fL (80.0-100.0); Monocytes # (auto) 0.6 10 ^3/uL (0-1.3); Monocytes % (auto) 10.1 % (0.0-12.0); Neutrophils # (auto) 4.9 10 ^3/uL (1.6-8.6); Neutrophils % (auto) 75.5 % (37.0-80.0); Platelet Count (auto) 155 10^3/uL (140-450); Red Blood Cells 2.61 10^6/uL (4.0-5.20); Red Cell Distribution Width 15.5 % (11.8-14.3); White Blood Cell 6.4 10^3/uL (4.4-10.8)
--- NOTE | 2024-10-17 11:11 | DVH ---
XY CHEST PORTABLE, HISTORY: ABN EKG COMPARISON: XY CHEST PORTABLE on DOS: 10/12/24, XY CHEST XRAY 1 VIEW on DOS: 10/06/24, XY CHEST DISHA BLE on DOS: 09/21/24 XY CHEST PORTABLE on DOS: 10/12/24, XY CHEST XRAY 1 VIEW on DOS: 10/06/24, XY CHEST PORTABLE on DOS: 09/21/24 TECHNICAL DATA: 1 view of the chest was obtained. FINDINGS: Lines and tubes: None Cardiomediastinal silhouette: normal Pulmonary vasculature: normal Lung expansion: normal Lung airspace: normal Lung interstitium: normal Pleura: normal Pneumothorax: no Bones: Unremarkable Other: [place] left lower lobe pulmonary nodule. IMPRESSION: No acute intrathoracic abnormality.
[2024-10-17 11:31] LABS: Alanine Aminotransferase 12 U/L (7-40); Albumin 3.6 g/dL (3.2-4.8); Alkaline Phosphatase 81 U/L (46-116); Anion Gap 9 (5-15); Aspartate Aminotransferase 17 U/L (13-40); BUN/Creatinine Ratio 7.8 (10.0-20.0); Blood Urea Nitrogen 40 mg/dL (9-23); Carbon Dioxide 24 mmol/L (20-31); Chloride 96 mmol/L (98-107); Glucose 98 mg/dL (74-106); Sodium 129 mmol/L (136-145)
[2024-10-17 11:45] VITALS: PULSE 67; RESP 18; O2SAT 99
[2024-10-17 11:48] LABS: Calcium 13.2 mg/dL (8.7-10.4)
[2024-10-17 11:52] LABS: Bilirubin, Total 0.3 mg/dL (0.2-1.0)
[2024-10-17] MEDS ORDERED: LORazepam 0.5 MG TAB PO PRN (12:15)
[2024-10-17] MEDS ORDERED: MORPHINE SULFATE INJ 2 MG/ml SYRG IV PRN (12:15)
[2024-10-17] MEDS ORDERED: SODIUM CHLORIDE 0.9% 1,000 ML IV SCH (12:15)
[2024-10-17] MEDS ORDERED: ACETAMINOPHEN 325 MG TAB PO PRN (12:15)
--- NOTE | 2024-10-17 12:39 | DVHHP2 ---
History of Present Illness Reason for Visit: general weakness History of Present Illness 69 yo with general weakness history thyroid disease, cancer with multiple myeloma and CKD 5 patient has been told that she needs to be on HD had blood work done and was sent by her PCP for admission and evaluation for possible need for HD sooner than later and continued management Cardiovascular: HTN Heme/Onc: Cancer Renal/: Chronic renal failure Review of Systems Constitutional: Yes: Weakness; No: Fever, Chills, Sweats, Malaise, Other Eyes: No: Pain, Vision change, Conjunctivae inflammation, Eyelid inflammation, Other, Redness ENT: No: Ear pain, Ear discharge, Nose pain, Nose discharge, Nose congestion, Mouth pain, Mouth swelling, Throat pain, Throat swelling, Other Respiratory: No: Cough, Dry, Shortness of breath, SOB with excertion, Wheezing, Hemoptysis, Pleuritic Pain, Sputum, Wheezing, Other Cardiovascular: No: Chest Pain, Palpitations, Orthopnea, Paroxysmal Noc. Dyspnea, Edema, Lt Headedness, Other Gastrointestinal: Nausea, Vomiting, Abdominal Pain Genitourinary: No Dysuria, No Frequency, No Incontinence, No Hematuria, No Retention, No Other Musculoskeletal: No: other, neck pain, shoulder pain, arm pain, back pain, hand pain, leg pain, foot pain Skin: No: Rash, Lesions, Jaundice, Bruising, Other Neurological: No: Weakness, Numbness, Incoordination, Change in speech, Confusion, Seizures, Other Allergies: Coded Allergies: NO KNOWN ALLERGIES (Unverified , 09/16/24) Medications Current Medications Medications Dose Ordered Sig/Juli Route Start Time Stop Time Status Last Admin Dose Admin Amiodarone HCl 200 mg BID PO 10/17/24 22:00 UNV Calcitonin [place] 200 unit DAILY NA 10/18/24 10:00 UNV Methimazole 5 mg TID PO 10/17/24 14:00 UNV Sodium Chloride 1,000 ml @ 60 mls/hr [id number] IV 10/17/24 12:15 UNV Lorazepam 0.5 mg Q6HP PRN PO 10/17/24 12:15 UNV Al Hydrox/Mg Hydrox/Simethicone 30 ml Q6HP PRN PO 10/17/24 12:15 UNV Docusate Sodium 100 mg BIDPRN PRN PO 10/17/24 12:15 UNV Acetaminophen 650 mg Q6HP PRN PO 10/17/24 12:15 UNV Acetaminophen/ Hydrocodone Bitart 1 tab Q4HP PRN PO 10/17/24 12:15 UNV Ondansetron HCl 4 mg Q4HP PRN IV 10/17/24 12:15 UNV Morphine Sulfate 2 mg Q4HPRN PRN IV 10/17/24 12:15 UNV Exam Vital Signs Vital Signs Date Time Temp Pulse Resp B/P (MAP) Pulse Ox O2 Delivery O2 Flow Rate FiO2 10/17/24 11:45 67 18 99 Nasal Cannula* 2 28 10/17/24 10:12 99.5 125/55 (78) General Appearance: Alert, Oriented X3, Cooperative HEENT: Atraumatic, PERRLA, EOMI Respiratory: Clear to auscultation, Normal air movement Cardiovascular: Regular rate, Normal S1, Normal S2 Abdominal: Normal bowel sounds, Soft, No tenderness Extremities: No clubbing, No cyanosis, No edema Skin: No rashes, No breakdown Neuro: Normal gait, Normal speech Psych/Mental Status: Mood NL Labs/Xrays Labs Test 10/17/24 11:50 10/17/24 10:50 Range/Units White Blood Count 6.4 4.4-10.8 10^3/uL Red Blood Count 2.61 L 4.0-5.20 10^6/uL Hemoglobin 8.0 L 12.2-16.2 g/dL Hematocrit 23.4 L 36.0-46.0 % Mean Corpuscular Volume 89.6 80.0-100.0 fL Mean Corpuscular Hemoglobin 30.8 28.0-32.0 pg Mean Corpuscular Hemoglobin Concent 34.4 32.0-36.0 g/dL Red Cell Distribution Width 15.5 H 11.8-14.3 % Platelet Count 155 140-450 10^3/uL Mean Platelet Volume 7.0 6.9-10.8 fL Neutrophils (%) (Auto) 75.5 37.0-80.0 % Lymphocytes (%) (Auto) 11.3 10.0-50.0 % Monocytes (%) (Auto) 10.1 0.0-12.0 % Eosinophils (%) (Auto) 2.1 0.0-7.0 % Basophils (%) (Auto) 1.0 0.0-2.0 % Neutrophils # (Auto) 4.9 1.6-8.6 10 ^3/uL Lymphocytes # (Auto) 0.7 0.4-5.4 10 ^3/uL Monocytes # (Auto) 0.6 0-1.3 10 ^3/uL Eosinophils # (Auto) 0.1 0-0.8 10 ^3/uL Basophils # (Auto) 0.1 0-0.2 10 ^3/uL Nucleated Red Blood Cells 0.0 % Sodium Level 129 L 136-145 mmol/L Potassium Level 5.0 3.5-5.1 mmol/L Chloride Level 96 L 98-107 mmol/L Carbon Dioxide Level 24 20-31 mmol/L Anion Gap 9 5-15 Blood Urea Nitrogen 40 H 9-23 mg/dL Creatinine 5.14 H 0.550-1.02 mg/dL Glomerular Filtration Rate Calc 9 >90 mL/min BUN/Creatinine Ratio 7.8 L 10.0-20.0 Serum Glucose 98 74-106 mg/dL Lactic Acid Level 1.1 0.4-2.0 mmol/L Calcium Level 13.2 *H 8.7-10.4 mg/dL Magnesium Level 2.0 1.6-2.6 mg/dL Total Bilirubin 0.3 0.2-1.0 mg/dL Aspartate Amino Transferase (AST) 17 13-40 U/L Alanine Aminotransferase (ALT) 12 7-40 U/L Alkaline Phosphatase 81 46-116 U/L B-Type Natriuretic Peptide 290.94 0-100 pg/mL Total Protein 8.0 5.7-8.2 g/dL Albumin 3.6 3.2-4.8 g/dL Assessment/Plan Assessment/Plan Admit to Med/Surg Hypercalcemia of Malignancy History Multiple Myeloma [place] to Chemo Treatment CKD stage 5 worsening overall Ca2+ levels Evaluation renal for HD patient stated for HD soon Recommended for in patient by PCP IV hydration C/W Calcitonin prn pain med History stated A-fib rate is controlled continue with amiodarone Plan discussed with: Patient My Orders Orders - STEF ROB MD Procedure Category Date Status Time *Dr. Morelos Group CONS 10/17/24 Transmitted -[place] 11:57 Amiodarone Tablet PHA 10/17/24 Transmitted (Cordarone Tablet) 22:00 Calcitonin Nasal PHA 10/18/24 Transmitted Bee (Fortical Nasal 10:00 Methimazole Tab PHA 10/17/24 Transmitted (Tapazole) 14:00 Admit ADMIT 10/17/24 Transmitted 12:14 Code Status CODE 10/17/24 Transmitted 12:14 Vital Signs [facility] 10/17/24 Transmitted 12:14 Review Orders With [facility] 10/17/24 Transmitted Adm.Md 12:14 Regular Diet DIET 10/17/24 Transmitted Lunch Sodium Chloride 0.9% PHA 10/17/24 Transmitted 12:15 Lorazepam Tablet PHA 10/17/24 Transmitted (Ativan Tablet) 12:15 Alum & Mag PHA 10/17/24 Transmitted Hydrox-Simethicone 12:15 Docusate Sodium PHA 10/17/24 Transmitted Capsule (Colace 12:15 Acetaminophen Tablet PHA 10/17/24 Transmitted (Tylenol Tablet) 12:15 Notify Md Of Changes [facility] 10/17/24 Transmitted From [place] 12:14 Advance Directive [facility] 10/17/24 Transmitted 12:14 Basic Metabolic Panel LAB 10/18/24 Verified 04:00 Urinalysis LAB 10/17/24 Logged 12:14 Complete Blood Count LAB 10/18/24 Verified 04:00 Patient Condition ORDERS 10/17/24 Transmitted 12:14 Allergies [facility] 10/17/24 Transmitted 12:14 Hydrocodone-Acet PHA 10/17/24 Transmitted 5/325mg Tab ([place] 12:15 Ondansetron Hcl PHA 10/17/24 Transmitted (Zofran) 12:15 Morphine 2mg Iv Q4hprn PHA 10/17/24 Transmitted 12:15 Notify Md Of Changes [facility] 10/17/24 Transmitted From [place] 12:14 Oxygen By Nasal RT 10/17/24 Transmitted Cannula 12:14 Problem List: (1) Cancer (2) Generalized weakness (3) Acute kidney injury superimposed on chronic kidney disease Date of Service: Oct 17, 2024 Billing Provider: STEF ROB MD Common Visit Codes: [id number] INP/OBS CARE(LOW) STEF ROB MD Oct 17, 2024 12:39
--- NOTE | 2024-10-17 12:42 | DVHINCON2 ---
Date Seen: Oct 17, 2024 Referring Physician MD Fabiana Reason for Consultation STEMI History of Present Illness This is a 69-year-old female patient who presents to the emergency room with chief complaint of abnormal lab values. She was told by her primary physician to come to the emergency room due to abnormal lab values. Upon emergency room arrival, a twelve lead electrocardiogram was performed and revealed normal sinus rhythm with ST elevation to lateral leads. The patient denies any chest pain, shortness of breath, palpitations, or other cardiac symptoms. Significant past medical history includes paroxysmal atrial fibrillation (not on NOAC therapy), anemia with recent packed red blood cell transfusion, multiple myeloma with metastasis, chronic kidney disease, and GERD. This patient was recently seen in this hospital and is well-known by staff. Cardiology was asked to come see the patient as it was unclear if the patient was still on hospice care. According to the patient, she is no longer on hospice. Midwife came to at bedside to speak with the patient regarding plan of care. Patient has decided to proceed with conservative medical management given all of her comorbidities. Past Medical History Past medical history reviewed. No other significant than mentioned above. Past Surgical History Denies all previous surgeries Family History: Alcoholism G8 FATHER Cardiovascular disease PATERNAL GRANDFATHER Cerebrovascular accident (CVA) Diabetes mellitus MATERNAL GRANDMOTHER FH: breast cancer G8 MOTHER FH: dementia G8 MOTHER Family History Family history reviewed. Social History Denies the use of tobacco, alcohol or illicit drugs. Allergies: Coded Allergies: NO KNOWN ALLERGIES (Unverified , 09/16/24) Home Meds Active Scripts Calcitonin ([place]) (Calcitonin [place]) 200 Unit/Act Spr, 200 UNIT NA DAILY for 14 Days, #10 BOTTLE 1 SPRAY INTO ALTERNATE NOSTRIL DAILY Prov:KAITLYNN MAJOR RESIDENT 09/23/24 Amiodarone HCl (Amiodarone Hydrocloride) 200 Mg Tab, 200 MG PO BID for 30 Days, #60 TAB Prov:KAITLYNN MAJOR RESIDENT 09/23/24 Methimazole (Methimazole) 5 Mg Tab, 5 MG PO TID for 30 Days, #90 TAB Prov:KAITLYNN MAJOR RESIDENT 09/23/24 Reported Medications Omeprazole (Gnp Omeprazole) 20 Mg Tab, 20 MG PO, TAB 09/21/24 Home Meds Home medications reviewed. Current Medications Current Medications Medications (Trade) Dose Ordered Sig/Juli Route PRN Reason Start Time Stop Time Status Last Admin Amiodarone HCl (Cordarone Tablet) 200 mg BID PO 10/17/24 22:00 UNV Calcitonin [place] (Fortical Nasal [place]) 200 unit DAILY NA 10/18/24 10:00 UNV Methimazole (Tapazole) 5 mg TID PO 10/17/24 14:00 UNV Sodium Chloride 1,000 ml @ 60 mls/hr [id number] IV 10/17/24 12:15 Lorazepam (Ativan Tablet) 0.5 mg Q6HP PRN PO ANXIETY 10/17/24 12:15 Al Hydrox/Mg Hydrox/Simethicone (Maalox Plus) 30 ml Q6HP PRN PO FOR STOMACH DISTRESS 10/17/24 12:15 Docusate Sodium (Colace Capsule) 100 mg BIDPRN PRN PO FOR CONSTIPATION 10/17/24 12:15 Acetaminophen (Tylenol Tablet) 650 mg Q6HP PRN PO PAIN SCALE 1-3 OR TEMP>100.4 10/17/24 12:15 Acetaminophen/ Hydrocodone Bitart ([place] 5/325MG Tab) 1 tab Q4HP PRN PO MODERATE PAIN (4-6 PAIN SCALE) 10/17/24 12:15 Ondansetron HCl (Zofran) 4 mg Q4HP PRN IV NAUSEA / VOMITING 10/17/24 12:15 Morphine Sulfate 2 mg Q4HPRN PRN IV SEVERE PAIN (7-10 PAIN SCALE) 10/17/24 12:15 Review of Systems Constitutional: No symptom reported Ears, Nose, & Throat: No symptom reported Eyes: No symptom reported Neurological: No symptoms reported Pulmonary/Respiratory: No symptoms reported Cardiovascular: No symptom reported Gastrointestinal: No symptom reported Genitourinary: No symptom reported Musculoskeletal: No symptom reported Skin: No symptom reported Psychiatric: No symptom reported Endocrine: No symptom reported Hematologic/Lymphatic: No symptom reported Vital Signs Vital Signs Date Time Temp Pulse Resp B/P (MAP) Pulse Ox O2 Delivery O2 Flow Rate FiO2 10/17/24 11:45 67 18 99 Nasal Cannula* 2 28 10/17/24 10:12 99.5 125/55 (78) Physical Exam General Appearance: Cooperative.Thin, frail Head Exam: Normal inspection Neck Exam: Normal inspection. Pulmonary/Respiratory: Clear, bilateral breaths sounds. Cardiovascular/Chest: Regular rate and rhythm. Peripheral Pulses: 2+ Radial (R). 2+ Radial (L). 2+ Pedal (R). 2+ Pedal (L) Abdominal Exam: Normal bowel sounds. Ankle Exam: Negative ankle edema Lower extremities: Negative lower extremity edema Neuro/Mental Status: A/OX4, coherent. Thoughts/Psych: Normal thought pattern. Appropriate mood and affect. Good judgment and insight. Appearance: No acute distress. Skin Exam: Pale. Warm and dry. Labs/Diagnostic Data Labs Test 10/17/24 11:50 10/17/24 10:50 Range/Units Troponin I High Sensitivity 23 </=34 ng/L White Blood Count 6.4 4.4-10.8 10^3/uL Red Blood Count 2.61 L 4.0-5.20 10^6/uL Hemoglobin 8.0 L 12.2-16.2 g/dL Hematocrit 23.4 L 36.0-46.0 % Mean Corpuscular Volume 89.6 80.0-100.0 fL Mean Corpuscular Hemoglobin 30.8 28.0-32.0 pg Mean Corpuscular Hemoglobin Concent 34.4 32.0-36.0 g/dL Red Cell Distribution Width 15.5 H 11.8-14.3 % Platelet Count 155 140-450 10^3/uL Mean Platelet Volume 7.0 6.9-10.8 fL Neutrophils (%) (Auto) 75.5 37.0-80.0 % Lymphocytes (%) (Auto) 11.3 10.0-50.0 % Monocytes (%) (Auto) 10.1 0.0-12.0 % Eosinophils (%) (Auto) 2.1 0.0-7.0 % Basophils (%) (Auto) 1.0 0.0-2.0 % Neutrophils # (Auto) 4.9 1.6-8.6 10 ^3/uL Lymphocytes # (Auto) 0.7 0.4-5.4 10 ^3/uL Monocytes # (Auto) 0.6 0-1.3 10 ^3/uL Eosinophils # (Auto) 0.1 0-0.8 10 ^3/uL Basophils # (Auto) 0.1 0-0.2 10 ^3/uL Nucleated Red Blood Cells 0.0 % Sodium Level 129 L 136-145 mmol/L Potassium Level 5.0 3.5-5.1 mmol/L Chloride Level 96 L 98-107 mmol/L Carbon Dioxide Level 24 20-31 mmol/L Anion Gap 9 5-15 Blood Urea Nitrogen 40 H 9-23 mg/dL Creatinine 5.14 H 0.550-1.02 mg/dL Glomerular Filtration Rate Calc 9 >90 mL/min BUN/Creatinine Ratio 7.8 L 10.0-20.0 Serum Glucose 98 74-106 mg/dL Lactic Acid Level 1.1 0.4-2.0 mmol/L Calcium Level 13.2 *H 8.7-10.4 mg/dL Magnesium Level 2.0 1.6-2.6 mg/dL Total Bilirubin 0.3 0.2-1.0 mg/dL Aspartate Amino Transferase (AST) 17 13-40 U/L Alanine Aminotransferase (ALT) 12 7-40 U/L Alkaline Phosphatase 81 46-116 U/L B-Type Natriuretic Peptide 290.94 0-100 pg/mL Total Protein 8.0 5.7-8.2 g/dL Albumin 3.6 3.2-4.8 g/dL Assessment Acute ST-elevation myocardial infarction Paroxysmal atrial fibrillation (not on NOAC therapy due to high risk of bleeding) Acute on chronic anemia Multiple myeloma with metastasis Hypercalcemia Chronic kidney disease Plan/Recommendation We will continue with following plan/recommendations (Dr. Pérez): * Echocardiogram from 09/19/24 reveals EF 60%, RVSP 45mmHg * Chest pain protocol if needed * [id number] VASc score: 2 points, HAS-BLED score: 2 points * Continue oral antiarrhythmic agent amiodarone * Beta-evy for rate control, titrate as tolerated * Closely monitor H&H and platelet count, PRBC as needed. * Monitor and replete electrolytes as needed, keep K>4, Mag>2 * SCD's for DVT/VTE prophylaxis * Nephrology consult and recommendations Patient seen and examined at bedside with . A long discussion was had between the patient and liaison officer regarding plan of care. Patient requesting for conservative medical management at this time. The patient would not like to undergo any invasive procedures. reached out to patient's primary physician to notify him of plan of care. Thank you for allowing us to care for this patient. Please call with any questions or concerns. Critical care time spent: 44 minutes This medical document was created using an electronic medical record system with voice recognition software and computerized dictation system. Although this document has been carefully reviewed, there might still be some phonetic and typographical errors. Occasional wrong-word or ``sound-alike substitutions may have occurred due to the inherent limitations of voice recognition software. These areas are purely typographical due to imperfections of the software programs and do not reflect any compromise in the patient's medical care. Please read the chart carefully and recognize, using context, where these substitutions have occurred. Plan discussed with: Patient Date of Service: Oct 17, 2024 Billing Provider: CECY PÉREZ MD Cardiology Common Codes: [id number] INP/OBS CARE (High) DAVID VILLATORO FOOD WRITER Oct 17, 2024 12:42
[2024-10-17] MEDS: SODIUM CHLORIDE 0.9% 1,000 ML IV SCH (14:33)
[2024-10-17] MEDS: FUROSEMIDE 40 MG/4 ML VIAL IV ONE (14:37)
[2024-10-17] MEDS: methIMAzole 5 MG TAB PO SCH (14:38)
[2024-10-17 17:11] VITALS: BP 123/60; PULSE 76; RESP 16; TEMP 98.1; O2SAT 95
[2024-10-17] MEDS ORDERED: CALCITONIN 400unit/2ml Vial (200unit/ml) SC SCH (18:00)
[2024-10-17] MEDS: CALCITONIN 400unit/2ml Vial (200unit/ml) SC SCH (18:40)
[2024-10-17 19:00] VITALS: O2SAT 96
[2024-10-17 20:00] VITALS: PULSE 78; RESP 16; O2SAT 94
--- NOTE | 2024-10-17 20:05 | DVHINCON2 ---
Date of service: Oct 17, 2024 Referring Physician Criss Reason for Consultation CKD, hypercalcemia History of Present Illness 69-year-old female was sent to ER by PCP continued decrease in kidney function. Patient reports hx of CKD however, does not now baseline GFR. Reports history of thyroid disease, multiple myeloma has not started treatment kidney function. Presented with Na 129, K + to 5.0, BUN 40, creatinine 5.14, GFR 9, calcium 13.2. Patient denies CP dyspnea, BLE edema. Denies GI issues. Denies NSAIDs use Past Medical History Disease, multiple myeloma, CKD Allergies: Coded Allergies: NO KNOWN ALLERGIES (Unverified , 09/16/24) Home Meds Active Scripts Calcitonin ([place]) (Calcitonin [place]) 200 Unit/Act Spr, 200 UNIT NA DAILY for 14 Days, #10 BOTTLE 1 SPRAY INTO ALTERNATE NOSTRIL DAILY Prov:MAJORKAITLYNN RESIDENT 09/23/24 Amiodarone HCl (Amiodarone Hydrocloride) 200 Mg Tab, 200 MG PO BID for 30 Days, #60 TAB Prov:KAITLYNN MAJOR RESIDENT 09/23/24 Methimazole (Methimazole) 5 Mg Tab, 5 MG PO TID for 30 Days, #90 TAB Prov:MORIAHKAITLYNN RESIDENT 09/23/24 Reported Medications Omeprazole (Gnp Omeprazole) 20 Mg Tab, 20 MG PO, TAB 09/21/24 Current Medications Current Medications Medications (Trade) Dose Ordered Sig/Juli Route PRN Reason Start Time Stop Time Status Last Admin Amiodarone HCl (Cordarone Tablet) 200 mg BID PO 10/17/24 22:00 Calcitonin [place] (Fortical Nasal [place]) 200 unit DAILY NA 10/18/24 10:00 Cancel Methimazole (Tapazole) 5 mg TID PO 10/17/24 14:00 10/17/24 14:38 Sodium Chloride 1,000 ml @ 60 mls/hr [id number] IV 10/17/24 12:15 10/17/24 13:46 DC Lorazepam (Ativan Tablet) 0.5 mg Q6HP PRN PO ANXIETY 10/17/24 12:15 Al Hydrox/Mg Hydrox/Simethicone (Maalox Plus) 30 ml Q6HP PRN PO FOR STOMACH DISTRESS 10/17/24 12:15 Docusate Sodium (Colace Capsule) 100 mg BIDPRN PRN PO FOR CONSTIPATION 10/17/24 12:15 Acetaminophen (Tylenol Tablet) 650 mg Q6HP PRN PO PAIN SCALE 1-3 OR TEMP>100.4 10/17/24 12:15 Acetaminophen/ Hydrocodone Bitart ([place] 5/325MG Tab) 1 tab Q4HP PRN PO MODERATE PAIN (4-6 PAIN SCALE) 10/17/24 12:15 Ondansetron HCl (Zofran) 4 mg Q4HP PRN IV NAUSEA / VOMITING 10/17/24 12:15 Morphine Sulfate 2 mg Q4HPRN PRN IV SEVERE PAIN (7-10 PAIN SCALE) 10/17/24 12:15 Sodium Chloride 1,000 ml @ 100 mls/hr Q10H IV 10/17/24 13:45 10/17/24 14:33 Calcitonin [place] (Miacalcin Injectable) 200 unit Q12H SC 10/17/24 18:00 10/18/24 06:01 Cancel Calcitonin [place] (Miacalcin Injectable) 200 unit Q12H SC 10/17/24 18:00 10/18/24 06:01 10/17/24 18:40 Metoprolol Succinate (Toprol Xl) 25 mg DAILY PO 10/18/24 10:00 Family History: Alcoholism G8 FATHER Cardiovascular disease PATERNAL GRANDFATHER Cerebrovascular accident (CVA) Diabetes mellitus MATERNAL GRANDMOTHER FH: breast cancer G8 MOTHER FH: dementia G8 MOTHER Review of Systems 10 systems reviewed and negative except as per HPI H&P Exam Vital Signs/I&O Vital Sign Date Time Temp Pulse Resp B/P (MAP) Pulse Ox O2 Delivery O2 Flow Rate FiO2 10/17/24 19:00 96 Room Air* 0 21 10/17/24 17:11 98.1 76 16 123/60 (81) 98.1 Physical Exam Gen: Patient appears stated age, in no acute distress HEENT: Pupils equal and reactive to light and accommodation Pulm: CTA Bilaterally Cardio: RRR, normal S1 and S2 Abd: Normoactive bowel sounds, soft and nontender Ext: No edema Neuro: Alert and oriented x 4 Labs/Diagnostic Data Labs/Diagnostic Data Laboratory Tests Test 10/17/24 14:11 10/17/24 11:50 10/17/24 10:50 Range/Units Troponin I High Sensitivity </=34 ng/L White Blood Count 6.4 4.4-10.8 10^3/uL Red Blood Count 2.61 L 4.0-5.20 10^6/uL Hemoglobin 8.0 L 12.2-16.2 g/dL Hematocrit 23.4 L 36.0-46.0 % Mean Corpuscular Volume 89.6 80.0-100.0 fL Mean Corpuscular Hemoglobin 30.8 28.0-32.0 pg Mean Corpuscular Hemoglobin Concent 34.4 32.0-36.0 g/dL Red Cell Distribution Width 15.5 H 11.8-14.3 % Platelet Count 155 140-450 10^3/uL Mean Platelet Volume 7.0 6.9-10.8 fL Neutrophils (%) (Auto) 75.5 37.0-80.0 % Lymphocytes (%) (Auto) 11.3 10.0-50.0 % Monocytes (%) (Auto) 10.1 0.0-12.0 % Eosinophils (%) (Auto) 2.1 0.0-7.0 % Basophils (%) (Auto) 1.0 0.0-2.0 % Neutrophils # (Auto) 4.9 1.6-8.6 10 ^3/uL Lymphocytes # (Auto) 0.7 0.4-5.4 10 ^3/uL Monocytes # (Auto) 0.6 0-1.3 10 ^3/uL Eosinophils # (Auto) 0.1 0-0.8 10 ^3/uL Basophils # (Auto) 0.1 0-0.2 10 ^3/uL Nucleated Red Blood Cells 0.0 % Sodium Level 129 L 136-145 mmol/L Potassium Level 5.0 3.5-5.1 mmol/L Chloride Level 96 L 98-107 mmol/L Carbon Dioxide Level 24 20-31 mmol/L Anion Gap 9 5-15 Blood Urea Nitrogen 40 H 9-23 mg/dL Creatinine 5.14 H 0.550-1.02 mg/dL Glomerular Filtration Rate Calc 9 >90 mL/min BUN/Creatinine Ratio 7.8 L 10.0-20.0 Serum Glucose 98 74-106 mg/dL Lactic Acid Level 1.1 0.4-2.0 mmol/L Calcium Level 13.2 *H 8.7-10.4 mg/dL Magnesium Level 2.0 1.6-2.6 mg/dL Total Bilirubin 0.3 0.2-1.0 mg/dL Aspartate Amino Transferase (AST) 17 13-40 U/L Alanine Aminotransferase (ALT) 12 7-40 U/L Alkaline Phosphatase 81 46-116 U/L B-Type Natriuretic Peptide 290.94 0-100 pg/mL Total Protein 8.0 5.7-8.2 g/dL Albumin 3.6 3.2-4.8 g/dL Plan/Recommendation 1.) MARTINEZ hemodynamically mediated 2.) CKD stage V- unknown baseline creat- possibly cast nephropathy 3.) Hypercalcemia 4.) Hx of multiple myeloma REC - Agree with continuing calcitonin - Increase IVF NS to 100ml/hr - IV lasix x 1- for Calcium excretion - Serial chemistry panels, CBC, phos, uric acid,TSH, PTH, hepatic panel,serum immunofixation, urine studies, renal ultrasound - Will evaluate daily for HORSE [employer] MANAGER, hemodialysis if no evidence of brisk improvement in kidney function - Avoidance of NSAIDs/IV contrast is possible - We will continue to follow closely Case discussed with Dr. Morelos Plan discussed with: Patient, Other (Dr. Morelos) ADELAIDA CARRILLO [facility] Oct 17, 2024 20:05
--- NOTE | 2024-10-17 20:50 | DVH ---
INDICATION: MARTINEZ TECHNIQUE: Multiple real-time sonographic images of the kidneys and bladder were obtained. COMPARISON: US KIDNEY on DOS: 09/16/24 FINDINGS: RIGHT kidney measures 11.12 cm in length. No hydronephrosis. LEFT kidney measures 11.34 cm in length. No hydronephrosis. No large intraluminal masses are seen in the bladder. Bladder volume is 394 mL. Bladder wall thickness is 1.6 mm. Patient had no urge to void. IMPRESSION: 1. No hydronephrosis. Right kidney is 11.12 cm. Left kidney measures 11.34 cm. 2. Increased echogenicity to the renal cortex bilaterally. 3. Small anechoic lesion in the right adnexa most likely right ovarian follicle. HS:Y
[2024-10-17] MEDS: ONDANSETRON HCL 4 MG/2 ML VIAL IV PRN (20:52)
[2024-10-17 21:00] VITALS: BP 120/57; PULSE 78; RESP 16; TEMP 97.7; O2SAT 94
[2024-10-17] MEDS: AMIODARONE HCL 200 MG TAB PO SCH (21:14)
[2024-10-18] VITALS (7 sets, daily range): BP systolic 98–147; BP diastolic 52–74; PULSE 64–81; RESP 16; TEMP 97.5–98.2; O2SAT 95–96
[2024-10-18 00:12] LABS: Protein, Urine 166.5 mg/dL (1-14)
[2024-10-18 00:14] LABS: Creatinine, Urine 18.91 mg/dL (30.0-125.0)
[2024-10-18 00:24] LABS: Urine Blood TRACE /uL (Negative); Urine Clarity Clear (Clear); Urine Protein, UAD 1+ (Negative); Urine Specific Gravity 1.007 (1.001-1.035); Urine Urobilinogen Normal (Negative); Urine WBC 5 /hpf (0 - 5)
[2024-10-18 00:27] LABS: Urine Color STRAW (Yellow)
[2024-10-18 06:59] LABS: Basophils # (auto) 0.1 10 ^3/uL (0-0.2); Eosinophils # (auto) 0.1 10 ^3/uL (0-0.8); Eosinophils % (auto) 2.1 % (0.0-7.0); Hematocrit 21.5 % (36.0-46.0); Hemoglobin 7.2 g/dL (12.2-16.2); Lymphocytes # (auto) 0.8 10 ^3/uL (0.4-5.4); Lymphocytes % (auto) 13.3 % (10.0-50.0); Mean Corpuscular Hgb Conc. 33.5 g/dL (32.0-36.0); Mean Corpuscular Volume 89.5 fL (80.0-100.0); Monocytes # (auto) 0.6 10 ^3/uL (0-1.3); Neutrophils # (auto) 4.6 10 ^3/uL (1.6-8.6); Neutrophils % (auto) 73.6 % (37.0-80.0); Nucleated Red Blood Cells % 0.1 %; Platelet Count (auto) 145 10^3/uL (140-450); Red Cell Distribution Width 15.2 % (11.8-14.3); White Blood Cell 6.3 10^3/uL (4.4-10.8)
[2024-10-18 07:03] LABS: Chloride 99 mmol/L (98-107); Potassium 4.6 mmol/L (3.5-5.1); Sodium 132 mmol/L (136-145)
[2024-10-18 07:04] LABS: Anion Gap 11 (5-15); Calcium 11.5 mg/dL (8.7-10.4); Carbon Dioxide 22 mmol/L (20-31)
[2024-10-18 07:09] LABS: BUN/Creatinine Ratio 7.7 (10.0-20.0); Blood Urea Nitrogen 39 mg/dL (9-23); Glucose 80 mg/dL (74-106)
[2024-10-18 07:22] LABS: Albumin 3.2 g/dL (3.2-4.8); Uric Acid 9.2 mg/dL (3.1-7.8)
[2024-10-18 07:23] LABS: Bilirubin, Total 0.3 mg/dL (0.2-1.0); Phosphorus 4.2 mg/dL (2.4-5.1); Total Protein 7.4 g/dL (5.7-8.2)
[2024-10-18 07:45] LABS: Bilirubin, Direct 0.1 mg/dL (<0.3)
[2024-10-18] MEDS: METOPROLOL SUCCINATE XL 50 MG TAB PO SCH (09:55)
[2024-10-18] MEDS ORDERED: CALCITONIN 200 UNIT/SPRAY NASAL SCH (10:00)
--- NOTE | 2024-10-18 12:08 | DVHPN2 ---
Subjective Seen and examined at bedside, patient wants full treatment. Likely will need to start dialysis in inpatient setting. Changes from previous H/P or p: No Changes Eyes: No Pain, No Vision change, No Conjunctivae inflammation, No Eyelid inflammation, No Other, No Redness ENT: No Ear pain, No Ear discharge, No Nose pain, No Nose discharge, No Nose congestion, No Mouth pain, No Mouth swelling, No Throat pain, No Throat swelling, No Other Cardiovascular: No Chest Pain, No Palpitations, No Orthopnea, No Paroxysmal Noc. Dyspnea, No Edema, No Lt Headedness, No Other Respiratory: No Cough, No Dry, No Shortness of breath, No SOB with excertion, No Wheezing, No Hemoptysis, No Pleuritic Pain, No Sputum, No Other Gastrointestinal: No Nausea, No Vomiting, No Abdominal Pain, No Diarrhea, No Constipation, No Melena, No Hematochezia, No Other Genitourinary: No Dysuria, No Frequency, No Incontinence, No Hematuria, No Retention, No Other Musculoskeletal: No other, No neck pain, No shoulder pain, No arm pain, No back pain, No hand pain, No leg pain, No foot pain Skin: No Rash, No Lesions, No Jaundice, No Bruising, No Other Objective Vitals Vital Signs Date Time Temp Pulse Resp B/P (MAP) Pulse Ox O2 Delivery O2 Flow Rate FiO2 10/18/24 09:55 81 140/72 10/18/24 09:00 97.7 16 95 97.7 10/17/24 20:00 Nasal Cannula* 2 28 Intake/Output Intake and Output 10/18/24 07:00 Intake Total 320 ml Output Total 0 ml Balance 320 ml Intake Oral 120 ml IV Total 200 ml Output Urine Total 0 ml # Voids 1 General Appearance: Alert, Oriented X3, Cooperative, No acute distress HEENT: Atraumatic Lungs: Clear to auscultation Cardiovascular: Regular rate, Normal S1, Normal S2 Abdomen: Normal bowel sounds, Soft, Other (cachectic) Rectal: Deferred Psych/Mental Status: Mental status NL Medications Current Medications Medications Dose Ordered Sig/Juli Route Start Time Stop Time Status Last Admin Dose Admin Amiodarone HCl 200 mg BID PO 10/17/24 22:00 10/18/24 09:55 200 MG Calcitonin [place] 200 unit DAILY NA 10/18/24 10:00 Cancel Methimazole 5 mg TID PO 10/17/24 14:00 10/18/24 05:11 5 MG Lorazepam 0.5 mg Q6HP PRN PO 10/17/24 12:15 Al Hydrox/Mg Hydrox/Simethicone 30 ml Q6HP PRN PO 10/17/24 12:15 Docusate Sodium 100 mg BIDPRN PRN PO 10/17/24 12:15 Acetaminophen 650 mg Q6HP PRN PO 10/17/24 12:15 Acetaminophen/ Hydrocodone Bitart 1 tab Q4HP PRN PO 10/17/24 12:15 Ondansetron HCl 4 mg Q4HP PRN IV 10/17/24 12:15 10/17/24 20:52 4 MG Morphine Sulfate 2 mg Q4HPRN PRN IV 10/17/24 12:15 Sodium Chloride 1,000 ml @ 100 mls/hr Q10H IV 10/17/24 13:45 10/18/24 09:55 100 MLS/HR Calcitonin [place] 200 unit Q12H SC 10/17/24 18:00 10/18/24 06:01 Cancel Metoprolol Succinate 25 mg DAILY PO 10/18/24 10:00 10/18/24 09:55 25 MG Laboratory Results Laboratory Tests 10/18/24 05:40 Chemistry Test 10/18/24 05:40 Albumin 3.2 g/dL (3.2-4.8) Calcium Level 11.5 mg/dL (8.7-10.4) H Phosphorus Level 4.2 mg/dL (2.4-5.1) Total Protein 7.4 g/dL (5.7-8.2) LFT Test 10/18/24 05:40 Alanine Aminotransferase (ALT) 10 U/L (7-40) Alkaline Phosphatase 76 U/L (46-116) Aspartate Amino Transferase (AST) 16 U/L (13-40) Direct Bilirubin 0.1 mg/dL (<0.3) Total Bilirubin 0.3 mg/dL (0.2-1.0) HgA1c, TSH Test 10/18/24 05:40 Thyroid Stimulating Hormone (TSH) 0.05 uIU/mL (0.55-4.78) L Urinalysis Test 10/17/24 21:03 11/22/24 23:41 Urine Color Straw (Yellow) Urine Clarity Clear (Clear) Urine pH 7.0 (5.0-9.0) Urine Specific [place] 1.007 (1.001-1.035) Urine Protein 1+ (Negative) H Urine Ketones Negative (Negative) Urine Blood Trace /uL (Negative) H Urine Nitrite Negative (Negative) Urine Bilirubin Negative (Negative) Urine Urobilinogen Normal mg/dL (Negative) Urine Leukocyte Esterase Negative /uL (Negative) Urine RBC 1 /hpf (0 - 4) Urine WBC 5 /hpf (0 - 5) Urine Squamous Epithelial Cells Few /hpf (<5) Urine Bacteria /hpf (None Seen) Urine Glucose Normal mg/dL (Normal) Urine Creatinine 18.91 mg/dL (30.0-125.0) L Urine Sodium 92 mmol/L (40-220) Urine Total Protein Pending Urine Albumin Pending Urine Myfdj-0-Vxghjjjh Pending Urine Gerth-1-Lhggdoeue Pending Urine Beta Globulin Pending Urine Gamma Globulin Pending Ur Protein Electrophoresis M-Moi Pending Urine Protein Electrophoresis Note Pending Assessment/Plan Assessment/Plan # MARTINEZ due to Multiple Myeloma - Likely will need Dialysis - Nephro Cx # Hypercalcemia # Multiple Myeloma - As managed by Dr. Lewis in outpatient # Protein Malnutrition, underweight - Dietary Cx Plan discussed with: Patient Date of Service: Oct 18, 2024 Billing Provider: JANELLE FULTON MD Common Visit Codes: [id number] INP/OBS CARE(HIGH) JANELLE FULTON MD Oct 18, 2024 12:08
--- NOTE | 2024-10-18 13:41 | DVHPN2 ---
Progress Note - Dictate Date Seen: Oct 18, 2024 Medical Necessity Reason Pt with a Central, PICC or Fol: No Subjective Awake and alert, denies current excessive nausea. vital signs Vital Sign Date Time Temp Pulse Resp B/P (MAP) Pulse Ox O2 Delivery O2 Flow Rate FiO2 10/18/24 12:48 98.2 78 16 115/52 (73) 96 98.2 10/18/24 08:00 Nasal Cannula* 2 28 Total Intake and Output 10/17/24 10/17/24 10/18/24 15:00 23:00 07:00 Intake Total 200 ml 120 ml Output Total 0 ml Balance 200 ml 120 ml medications Current Medications Medications Dose Ordered Sig/Juli Route Start Time Stop Time Status Last Admin Dose Admin Amiodarone HCl 200 mg BID PO 10/17/24 22:00 10/18/24 09:55 200 MG Calcitonin [place] 200 unit DAILY NA 10/18/24 10:00 Cancel Methimazole 5 mg TID PO 10/17/24 14:00 10/18/24 05:11 5 MG Lorazepam 0.5 mg Q6HP PRN PO 10/17/24 12:15 Al Hydrox/Mg Hydrox/Simethicone 30 ml Q6HP PRN PO 10/17/24 12:15 Docusate Sodium 100 mg BIDPRN PRN PO 10/17/24 12:15 Acetaminophen 650 mg Q6HP PRN PO 10/17/24 12:15 Acetaminophen/ Hydrocodone Bitart 1 tab Q4HP PRN PO 10/17/24 12:15 Ondansetron HCl 4 mg Q4HP PRN IV 10/17/24 12:15 10/17/24 20:52 4 MG Morphine Sulfate 2 mg Q4HPRN PRN IV 10/17/24 12:15 Sodium Chloride 1,000 ml @ 100 mls/hr Q10H IV 10/17/24 13:45 10/18/24 09:55 100 MLS/HR Calcitonin [place] 200 unit Q12H SC 10/17/24 18:00 10/18/24 06:01 Cancel Metoprolol Succinate 25 mg DAILY PO 10/18/24 10:00 10/18/24 09:55 25 MG objective Gen: nad, cachectic heent: nc/at, mmm lungs: cta anteriorly cvs: no rub abd: soft, bowel sounds audible ext: no edema skin: no rash neuro: alert and oriented laboratory and microbiology Laboratory Tests 10/18/24 05:40 Test 10/18/24 05:40 Range/Units Serum Glucose 80 74-106 mg/dL Assessment/Plan 1.) MARTINEZ hemodynamically mediated 2.) CKD stage V- unknown baseline creat- 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 Leos Plan discussed with: Patient MALINI BRADFORD MD Oct 18, 2024 13:41
[2024-10-18] MEDS: DOCUSATE SOD 100 MG CAP PO PRN (15:58)
[2024-10-18] MEDS: MAALOX PLUS or MAALOX 30 ML PO PRN (15:58)
[2024-10-18] MEDS: LACTULOSE 20Gm/30ML SOLN PO ONE (16:42)
[2024-10-18] MEDS: FLEET ENEMA(ADULT) 135 ML PR ONE (16:42)
--- NOTE | 2024-10-18 17:06 | DVHPN2 ---
Consult Progress Note Date Seen: Oct 18, 2024 Subjective Other Systems: Patient denies any cardiac symptoms. Objective vital signs Vital Sign Date Time Temp Pulse Resp B/P (MAP) Pulse Ox O2 Delivery O2 Flow Rate FiO2 10/18/24 16:48 98.1 65 16 147/63 (91) 96 98.1 10/18/24 08:00 Nasal Cannula* 2 28 Total Intake and Output 10/17/24 10/17/24 10/18/24 15:00 23:00 07:00 Intake Total 200 ml 120 ml Output Total 0 ml Balance 200 ml 120 ml medications Current Medications Medications Dose Ordered Sig/Juli Route Start Time Stop Time Status Last Admin Dose Admin Amiodarone HCl 200 mg BID PO 10/17/24 22:00 10/18/24 09:55 200 MG Calcitonin [place] 200 unit DAILY NA 10/18/24 10:00 Cancel Methimazole 5 mg TID PO 10/17/24 14:00 10/18/24 14:00 5 MG Lorazepam 0.5 mg Q6HP PRN PO 10/17/24 12:15 Al Hydrox/Mg Hydrox/Simethicone 30 ml Q6HP PRN PO 10/17/24 12:15 10/18/24 15:58 30 ML Docusate Sodium 100 mg BIDPRN PRN PO 10/17/24 12:15 10/18/24 15:58 100 MG Acetaminophen 650 mg Q6HP PRN PO 10/17/24 12:15 Acetaminophen/ Hydrocodone Bitart 1 tab Q4HP PRN PO 10/17/24 12:15 Ondansetron HCl 4 mg Q4HP PRN IV 10/17/24 12:15 10/17/24 20:52 4 MG Morphine Sulfate 2 mg Q4HPRN PRN IV 10/17/24 12:15 Sodium Chloride 1,000 ml @ 100 mls/hr Q10H IV 10/17/24 13:45 10/18/24 09:55 100 MLS/HR Calcitonin [place] 200 unit Q12H SC 10/17/24 18:00 10/18/24 06:01 Cancel Metoprolol Succinate 25 mg DAILY PO 10/18/24 10:00 10/18/24 09:55 25 MG Examination: GENERAL:Abnormal (Generalized weakness), LUNGS:Normal, CVS:Normal, NEURO:Normal laboratory and microbiology Laboratory Tests 10/18/24 05:40 Test 10/18/24 05:40 Range/Units Serum Glucose 80 74-106 mg/dL Problem List/Assessment/Plan Problem List/Assessment/Plan Acute ST-elevation myocardial infarction Paroxysmal atrial fibrillation (not on NOAC therapy due to high risk of bleeding) Acute on chronic anemia Multiple myeloma with metastasis Hypercalcemia Chronic kidney disease Plan/Recommendation (Dr. Pérez): * Echocardiogram from 09/19/24 reveals EF 60%, RVSP 45mmHg * [id number] VASc score: 2 points, HAS-BLED score: 2 points * Continue oral antiarrhythmic agent amiodarone * Beta-evy for rate control, titrate as tolerated * Closely monitor H&H and platelet count, PRBC as needed. * Monitor and replete electrolytes as needed, keep K>4, Mag>2 * SCD's for DVT/VTE prophylaxis * Nephrology consult and recommendations Thank you for allowing us to care for this patient. Please call with any questions or concerns. This medical document was created using an electronic medical record system with voice recognition software and computerized dictation system. Although this document has been carefully reviewed, there might still be some phonetic and typographical errors. Occasional wrong-word or ``sound-alike substitutions may have occurred due to the inherent limitations of voice recognition software. These areas are purely typographical due to imperfections of the software programs and do not reflect any compromise in the patient's medical care. Please read the chart carefully and recognize, using context, where these substitutions have occurred. Plan discussed with: Patient Date of Service: Oct 18, 2024 Billing Provider: CECY PÉREZ MD Cardiology Common Codes: [id number] INP/OBS CARE(Mod) DAVID VILLATORO NUTRITION COORDINATOR Oct 18, 2024 17:06
[2024-10-19] VITALS (9 sets, daily range): BP systolic 93–115; BP diastolic 42–55; PULSE 61–73; RESP 16–18; TEMP 97.2–99; O2SAT 94–98
[2024-10-19 05:38] LABS: Basophils # (auto) 0 10 ^3/uL (0-0.2); Eosinophils # (auto) 0.1 10 ^3/uL (0-0.8); Lymphocytes # (auto) 0.6 10 ^3/uL (0.4-5.4); Mean Corpuscular Volume 89.8 fL (80.0-100.0); Monocytes # (auto) 0.6 10 ^3/uL (0-1.3); Neutrophils # (auto) 5.4 10 ^3/uL (1.6-8.6)
[2024-10-19 05:40] LABS: Basophils % (auto) 0.7 % (0.0-2.0); Eosinophils % (auto) 1.5 % (0.0-7.0); Hematocrit 20.4 % (36.0-46.0); Lymphocytes % (auto) 8.5 % (10.0-50.0); Mean Corpuscular Hemoglobin 30.5 pg (28.0-32.0); Mean Corpuscular Hgb Conc. 33.9 g/dL (32.0-36.0); Monocytes % (auto) 8.8 % (0.0-12.0); Neutrophils % (auto) 80.5 % (37.0-80.0); Platelet Count (auto) 151 10^3/uL (140-450); Red Blood Cells 2.27 10^6/uL (4.0-5.20); Red Cell Distribution Width 15.7 % (11.8-14.3); White Blood Cell 6.8 10^3/uL (4.4-10.8)
[2024-10-19 05:56] LABS: Alanine Aminotransferase 11 U/L (7-40); Alkaline Phosphatase 74 U/L (46-116); Anion Gap 12 (5-15); Aspartate Aminotransferase 13 U/L (13-40); BUN/Creatinine Ratio 7.5 (10.0-20.0); Blood Urea Nitrogen 38 mg/dL (9-23); Calcium 10.9 mg/dL (8.7-10.4); Carbon Dioxide 20 mmol/L (20-31); Chloride 98 mmol/L (98-107); Glucose 108 mg/dL (74-106); Potassium 4.3 mmol/L (3.5-5.1); Sodium 130 mmol/L (136-145)
[2024-10-19 05:57] LABS: Bilirubin, Direct < 0.1 mg/dL (<0.3); Bilirubin, Total 0.2 mg/dL (0.2-1.0); Total Protein 7.2 g/dL (5.7-8.2)
[2024-10-19 06:15] LABS: Hemoglobin 6.9 g/dL (12.2-16.2)
--- NOTE | 2024-10-19 11:34 | DVHPN2 ---
Consult Progress Note Date Seen: Oct 19, 2024 Subjective Other Systems: Patient denies any chest pain, shortness or breath, palpitations at time of assessment. Patient is Med/surg status Objective vital signs Vital Sign Date Time Temp Pulse Resp B/P (MAP) Pulse Ox O2 Delivery O2 Flow Rate FiO2 10/19/24 10:26 73 115/55 10/19/24 09:00 99.0 17 96 99.0 10/18/24 20:00 Nasal Cannula* 2 28 Total Intake and Output 10/18/24 10/18/24 10/19/24 15:00 23:00 07:00 Intake Total 500 ml 1400 ml Output Total 600 ml 300 ml Balance -100 ml 1100 ml medications Current Medications Medications Dose Ordered Sig/Juli Route Start Time Stop Time Status Last Admin Dose Admin Amiodarone HCl 200 mg BID PO 10/17/24 22:00 10/19/24 10:26 200 MG Calcitonin [place] 200 unit DAILY NA 10/18/24 10:00 Cancel Methimazole 5 mg TID PO 10/17/24 14:00 10/19/24 05:40 5 MG Lorazepam 0.5 mg Q6HP PRN PO 10/17/24 12:15 Al Hydrox/Mg Hydrox/Simethicone 30 ml Q6HP PRN PO 10/17/24 12:15 10/18/24 15:58 30 ML Docusate Sodium 100 mg BIDPRN PRN PO 10/17/24 12:15 10/18/24 15:58 100 MG Acetaminophen 650 mg Q6HP PRN PO 10/17/24 12:15 Acetaminophen/ Hydrocodone Bitart 1 tab Q4HP PRN PO 10/17/24 12:15 Ondansetron HCl 4 mg Q4HP PRN IV 10/17/24 12:15 10/17/24 20:52 4 MG Morphine Sulfate 2 mg Q4HPRN PRN IV 10/17/24 12:15 Sodium Chloride 1,000 ml @ 100 mls/hr Q10H IV 10/17/24 13:45 10/19/24 04:31 100 MLS/HR Calcitonin [place] 200 unit Q12H SC 10/17/24 18:00 10/18/24 06:01 Cancel Metoprolol Succinate 25 mg DAILY PO 10/18/24 10:00 11/24/24 10:26 25 MG Examination: GENERAL:Normal, LUNGS:Normal, CVS:Normal, NEURO:Normal laboratory and microbiology Laboratory Tests 10/19/24 05:14 Test 10/19/24 05:14 Range/Units Serum Glucose 108 H 74-106 mg/dL Problem List/Assessment/Plan Problem List/Assessment/Plan Acute ST-elevation myocardial infarction (refused angiogram) Paroxysmal atrial fibrillation (not on NOAC therapy due to high risk of bleeding) Acute anemia, severe Multiple myeloma with metastasis Hypercalcemia Chronic kidney disease Plan/Recommendation (Dr. Pérez): * Echocardiogram from 09/19/24 reveals EF 60%, RVSP 45mmHg * [id number] VASc score: 2 points, HAS-BLED score: 2 points * Continue oral antiarrhythmic agent amiodarone * Beta-evy for rate control, titrate as tolerated * Not on NOAC therapy due to hx of severe anemia. Patient and aware of risk of stroke. Patient declines NOAC therapy. * Closely monitor H&H and platelet count, PRBC as needed. * Monitor and replete electrolytes as needed, keep K>4, Mag>2 * SCD's for DVT/VTE prophylaxis * Cardiac surveillance: upgrade to telemetry * Obtain stool occult sample Today (10/19/24), patients hemoglobin down to 6.9. Patient to receive 1 unit PRBC. She denies any cardiac symptoms. Thank you for allowing us to care for this patient. Please call with any questions or concerns. This medical document was created using an electronic medical record system with voice recognition software and computerized dictation system. Although this document has been carefully reviewed, there might still be some phonetic and typographical errors. Occasional wrong-word or ``sound-alike substitutions may have occurred due to the inherent limitations of voice recognition software. These areas are purely typographical due to imperfections of the software programs and do not reflect any compromise in the patient's medical care. Please read the chart carefully and recognize, using context, where these substitutions have occurred. Plan discussed with: Patient Date of Service: Oct 19, 2024 Billing Provider: CECY PÉREZ MD Cardiology Common Codes: [id number] INP/OBS CARE(Mod) DAVID VILLATORO SENIOR CONTROLS ENGINEER Oct 19, 2024 11:34
--- NOTE | 2024-10-19 15:24 | DVHPN2 ---
Progress Note - Dictate Date Seen: Oct 19, 2024 Medical Necessity Reason Pt with a Central, PICC or Fol: No Subjective awake and alert, seen earlier this afternoon, patient's was at bedside. vital signs Vital Sign Date Time Temp Pulse Resp B/P (MAP) Pulse Ox O2 Delivery O2 Flow Rate FiO2 10/19/24 13:00 98.4 61 17 96/46 (63) 96 98.4 10/18/24 20:00 Nasal Cannula* 2 28 Total Intake and Output 10/18/24 10/18/24 10/19/24 15:00 23:00 07:00 Intake Total 500 ml 1400 ml Output Total 600 ml 300 ml Balance -100 ml 1100 ml medications Current Medications Medications Dose Ordered Sig/Juli Route Start Time Stop Time Status Last Admin Dose Admin Amiodarone HCl 200 mg BID PO 10/17/24 22:00 10/19/24 10:26 200 MG Calcitonin [place] 200 unit DAILY NA 10/18/24 10:00 Cancel Methimazole 5 mg TID PO 10/17/24 14:00 10/19/24 14:41 5 MG Lorazepam 0.5 mg Q6HP PRN PO 10/17/24 12:15 Al Hydrox/Mg Hydrox/Simethicone 30 ml Q6HP PRN PO 10/17/24 12:15 10/18/24 15:58 30 ML Docusate Sodium 100 mg BIDPRN PRN PO 10/17/24 12:15 10/18/24 15:58 100 MG Acetaminophen 650 mg Q6HP PRN PO 10/17/24 12:15 Acetaminophen/ Hydrocodone Bitart 1 tab Q4HP PRN PO 10/17/24 12:15 Ondansetron HCl 4 mg Q4HP PRN IV 10/17/24 12:15 10/17/24 20:52 4 MG Morphine Sulfate 2 mg Q4HPRN PRN IV 10/17/24 12:15 Sodium Chloride 1,000 ml @ 100 mls/hr Q10H IV 10/17/24 13:45 10/19/24 04:31 100 MLS/HR Calcitonin [place] 200 unit Q12H SC 10/17/24 18:00 10/18/24 06:01 Cancel Metoprolol Succinate 25 mg DAILY PO 10/18/24 10:00 10/19/24 10:26 25 MG objective Gen: nad, cachectic heent: nc/at, mmm lungs: cta anteriorly cvs: no rub abd: soft, bowel sounds audible ext: no edema skin: no rash neuro: alert and oriented laboratory and microbiology Laboratory Tests 10/19/24 05:14 Test 10/19/24 05:14 Range/Units Serum Glucose 108 H 74-106 mg/dL Assessment/Plan 1.) MARTINEZ hemodynamically mediated 2.) CKD stage V- unknown baseline 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 - They expressed understanding regarding plan of care and agree to proceed with dialysis procedure. Plan discussed with: Patient, Spouse MALINI BRADFORD MD Oct 19, 2024 15:24
--- NOTE | 2024-10-19 15:58 | DVHPN2 ---
Subjective New complaints Changes from previous H/P or p: Changes Eyes: No Pain, No Vision change, No Conjunctivae inflammation, No Eyelid inflammation, No Other, No Redness ENT: No Ear pain, No Ear discharge, No Nose pain, No Nose discharge, No Nose congestion, No Mouth pain, No Mouth swelling, No Throat pain, No Throat swelling, No Other Cardiovascular: No Chest Pain, No Palpitations, No Orthopnea, No Paroxysmal Noc. Dyspnea, No Edema, No Lt Headedness, No Other Respiratory: No Cough, No Dry, No Shortness of breath, No SOB with excertion, No Wheezing, No Hemoptysis, No Pleuritic Pain, No Sputum, No Other Gastrointestinal: No Nausea, No Vomiting, No Abdominal Pain, No Diarrhea, No Constipation, No Melena, No Hematochezia, No Other Genitourinary: No Dysuria, No Frequency, No Incontinence, No Hematuria, No Retention, No Other Musculoskeletal: No other, No neck pain, No shoulder pain, No arm pain, No back pain, No hand pain, No leg pain, No foot pain Skin: No Rash, No Lesions, No Jaundice, No Bruising, No Other Objective Vitals Vital Signs Date Time Temp Pulse Resp B/P (MAP) Pulse Ox O2 Delivery O2 Flow Rate FiO2 10/19/24 13:00 98.4 61 17 96/46 (63) 96 98.4 10/18/24 20:00 Nasal Cannula* 2 28 Intake/Output Intake and Output 10/19/24 07:00 Intake Total 1900 ml Output Total 900 ml Balance 1000 ml Intake Oral 750 ml IV Total 1150 ml Output Urine Total 900 ml # Bowel Movements 2 General Appearance: Alert, Oriented X3, Cooperative, No acute distress HEENT: Atraumatic Lungs: Clear to auscultation Cardiovascular: Regular rate, Normal S1, Normal S2 Abdomen: Normal bowel sounds, Soft, Other (cachectic) Rectal: Deferred Psych/Mental Status: Mental status NL Medications Current Medications Medications Dose Ordered Sig/Juli Route Start Time Stop Time Status Last Admin Dose Admin Amiodarone HCl 200 mg BID PO 10/17/24 22:00 10/19/24 10:26 200 MG Calcitonin [place] 200 unit DAILY NA 10/18/24 10:00 Cancel Methimazole 5 mg TID PO 10/17/24 14:00 10/19/24 14:41 5 MG Lorazepam 0.5 mg Q6HP PRN PO 10/17/24 12:15 Al Hydrox/Mg Hydrox/Simethicone 30 ml Q6HP PRN PO 10/17/24 12:15 10/18/24 15:58 30 ML Docusate Sodium 100 mg BIDPRN PRN PO 10/17/24 12:15 10/18/24 15:58 100 MG Acetaminophen 650 mg Q6HP PRN PO 10/17/24 12:15 Acetaminophen/ Hydrocodone Bitart 1 tab Q4HP PRN PO 10/17/24 12:15 Ondansetron HCl 4 mg Q4HP PRN IV 10/17/24 12:15 10/17/24 20:52 4 MG Morphine Sulfate 2 mg Q4HPRN PRN IV 10/17/24 12:15 Sodium Chloride 1,000 ml @ 100 mls/hr Q10H IV 10/17/24 13:45 10/19/24 04:31 100 MLS/HR Calcitonin [place] 200 unit Q12H SC 10/17/24 18:00 10/18/24 06:01 Cancel Metoprolol Succinate 25 mg DAILY PO 10/18/24 10:00 10/19/24 10:26 25 MG Laboratory Results Laboratory Tests 10/19/24 05:14 Chemistry Test 10/19/24 05:14 Albumin 3.0 g/dL (3.2-4.8) L Calcium Level 10.9 mg/dL (8.7-10.4) H Total Protein 7.2 g/dL (5.7-8.2) LFT Test 10/19/24 05:14 Alanine Aminotransferase (ALT) 11 U/L (7-40) Alkaline Phosphatase 74 U/L (46-116) Aspartate Amino Transferase (AST) 13 U/L (13-40) Direct Bilirubin < 0.1 mg/dL (<0.3) Total Bilirubin 0.2 mg/dL (0.2-1.0) Urinalysis Test 10/17/24 21:03 10/17/24 23:41 Urine Color Straw (Yellow) Urine Clarity Clear (Clear) Urine pH 7.0 (5.0-9.0) Urine Specific [place] 1.007 (1.001-1.035) Urine Protein 1+ (Negative) H Urine Ketones Negative (Negative) Urine Blood Trace /uL (Negative) H Urine Nitrite Negative (Negative) Urine Bilirubin Negative (Negative) Urine Urobilinogen Normal mg/dL (Negative) Urine Leukocyte Esterase Negative /uL (Negative) Urine RBC 1 /hpf (0 - 4) Urine WBC 5 /hpf (0 - 5) Urine Squamous Epithelial Cells Few /hpf (<5) Urine Bacteria /hpf (None Seen) Urine Glucose Normal mg/dL (Normal) Urine Creatinine 18.91 mg/dL (30.0-125.0) L Urine Sodium 92 mmol/L (40-220) Urine Total Protein Pending Urine Albumin Pending Urine Jigoi-[id number] Pending Urine Fghzv-9-Kkfzvswda Pending Urine Beta Globulin Pending Urine Gamma Globulin Pending Ur Protein Electrophoresis M-Moi Pending Urine Protein Electrophoresis Note Pending Microbiology Microbiology Date/Time Source Procedure Growth Status 10/17/24 19:27 Nose MRSA Screen - Final Complete Assessment/Plan Assessment/Plan MARTINEZ due to multiple myeloma end-stage renal disease now Multiple myeloma Hypercalcemia Protein calorie malnutrition Anemia Hyponatremia History of AFib Plan Patient is scheduled for tunneled catheter tomorrow The hemodialysis per nephrology Transfuse 1 units of packed RBCs Discussed with Dr. Morelos Discussed with the at the bedside Continue amiodarone Plan discussed with: Patient, Spouse Date of Service: Oct 19, 2024 Billing Provider: VAL HAY MD Common Visit Codes: [id number] INP/OBS CARE(HIGH) VAL HAY MD Oct 19, 2024 15:58
[2024-10-19] MEDS ORDERED: POTASSIUM CHL 20 Meq TABLET PO ONE (16:15)
[2024-10-19] MEDS ORDERED: MAGNESIUM SULFATE 1GM/100ML 100 ML IV SCH (17:00)
[2024-10-19 22:05] LABS: Hematocrit 20.6 % (36.0-46.0)
[2024-10-20] VITALS (11 sets, daily range): BP systolic 93–135; BP diastolic 48–87; PULSE 65–74; RESP 11–21; TEMP 98–98.9; O2SAT 93–96
[2024-10-20 06:27] LABS: Hemoglobin 8.4 g/dL (12.2-16.2); Lymphocytes # (auto) 0.9 10 ^3/uL (0.4-5.4); Mean Corpuscular Hgb Conc. 33.8 g/dL (32.0-36.0); Monocytes # (auto) 0.7 10 ^3/uL (0-1.3); Neutrophils # (auto) 4.8 10 ^3/uL (1.6-8.6)
[2024-10-20 06:30] LABS: Basophils # (auto) 0.1 10 ^3/uL (0-0.2); Basophils % (auto) 0.9 % (0.0-2.0); Eosinophils # (auto) 0.1 10 ^3/uL (0-0.8); Eosinophils % (auto) 2.2 % (0.0-7.0); Hematocrit 24.8 % (36.0-46.0); Mean Corpuscular Hemoglobin 30.2 pg (28.0-32.0); Mean Corpuscular Volume 89.4 fL (80.0-100.0); Monocytes % (auto) 10.5 % (0.0-12.0); Neutrophils % (auto) 73.4 % (37.0-80.0); Platelet Count (auto) 137 10^3/uL (140-450); Red Blood Cells 2.77 10^6/uL (4.0-5.20); Red Cell Distribution Width 15.2 % (11.8-14.3); White Blood Cell 6.6 10^3/uL (4.4-10.8)
[2024-10-20 06:55] LABS: Chloride 100 mmol/L (98-107); Potassium 4.4 mmol/L (3.5-5.1); Sodium 131 mmol/L (136-145)
[2024-10-20 06:56] LABS: Anion Gap 10 (5-15); Carbon Dioxide 21 mmol/L (20-31)
[2024-10-20 06:57] LABS: Calcium 12.1 mg/dL (8.7-10.4)
[2024-10-20 07:02] LABS: BUN/Creatinine Ratio 7.2 (10.0-20.0); Blood Urea Nitrogen 35 mg/dL (9-23); Glucose 83 mg/dL (74-106)
[2024-10-20 08:06] LABS: INR 1.08 (0.9-1.15); Partial Thromboplastin Time 30.8 SEC (24.5-34.5); Prothrombin Time 11.4 sec (9.3-11.8)
[2024-10-20 08:06] LABS: Immunoglobulin A 2229 mg/dL (87-352); Immunoglobulin G, Serum 284 mg/dL (586-1602); Immunoglobulin M 11 mg/dL (26-217)
--- NOTE | 2024-10-20 09:21 | ECG ---
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
--- NOTE | 2024-10-20 09:37 | ECG ---
[facility] Test Date: 2024-10-17 Test Time: 10:24:53 Pat Name: PALMIRA VEE Department: ER Room: [facility]0T A Gender: F Rug Inspector: DEBRA : 1955 Requested By: LINCOLN MOSER Order Number: [id number] Reading MD: Marc Patterson Measurements Intervals [place] Rate: 69 P: 28 NM: 126 QRS: 80 QRSD: 120 T: -17 QT: 411 QTc: 441 Interpretive Statements Sinus rhythm LVH with IVCD and secondary repol abnrm Lateral infarct, acute ST depression V1-V3, suggest recording posterior leads Electronically Signed On 10-21-2024 8:16:58 PST by Marc Patterson Please click the below link to view image of tracing.
[2024-10-20] MEDS: fentaNYL CITRATE 100 MCG/2 ML VL ONE (11:26)
[2024-10-20] MEDS: HEPARIN SODIUM (PORCINE) 5000 UNITS/ML 1ML VIAL ONE (11:26)
[2024-10-20] MEDS: LIDOCAINE 2%HCL (LOCAL ANESTH.) INJ 20ML MDV ONE (11:27)
[2024-10-20] MEDS: ceFAZolin 1GM/50ML 50 ML IV ONE (11:33)
--- NOTE | 2024-10-20 11:53 | DVHPN2 ---
Progress Note Date Seen: Oct 20, 2024 Medical Necessity Reason Pt with a Central, PICC or Fol: No Subjective Patient reports: No new complaints Other Systems: Patient seen and examined by myself today in follow-up Objective vital signs Vital Sign Date Time Temp Pulse Resp B/P (MAP) Pulse Ox O2 Delivery O2 Flow Rate FiO2 10/20/24 09:00 98.7 69 21 110/51 (70) 93 98.7 10/20/24 08:00 Room Air* 0 21 Total Intake and Output 10/19/24 10/19/24 10/20/24 15:00 23:00 07:00 Intake Total 1350 ml 950 ml Balance 1350 ml 950 ml medications Current Medications Medications Dose Ordered Sig/Juli Route Start Time Stop Time Status Last Admin Dose Admin Amiodarone HCl 200 mg BID PO 10/17/24 22:00 10/19/24 22:04 200 MG Calcitonin [place] 200 unit DAILY NA 10/18/24 10:00 Cancel Methimazole 5 mg TID PO 10/17/24 14:00 10/20/24 06:05 5 MG Lorazepam 0.5 mg Q6HP PRN PO 10/17/24 12:15 Al Hydrox/Mg Hydrox/Simethicone 30 ml Q6HP PRN PO 10/17/24 12:15 10/18/24 15:58 30 ML Docusate Sodium 100 mg BIDPRN PRN PO 10/17/24 12:15 10/18/24 15:58 100 MG Acetaminophen 650 mg Q6HP PRN PO 10/17/24 12:15 Acetaminophen/ Hydrocodone Bitart 1 tab Q4HP PRN PO 10/17/24 12:15 Ondansetron HCl 4 mg Q4HP PRN IV 10/17/24 12:15 10/20/24 00:44 4 MG Morphine Sulfate 2 mg Q4HPRN PRN IV 10/17/24 12:15 Sodium Chloride 1,000 ml @ 100 mls/hr Q10H IV 10/17/24 13:45 10/20/24 01:45 100 MLS/HR Calcitonin [place] 200 unit Q12H SC 10/17/24 18:00 10/18/24 06:01 Cancel Metoprolol Succinate 25 mg DAILY PO 10/18/24 10:00 10/19/24 10:26 25 MG Examination: LUNGS:Normal, CVS:Normal, MSK:Normal laboratory and microbiology Laboratory Tests 10/20/24 05:45 Test 10/20/24 05:45 Range/Units Serum Glucose 83 74-106 mg/dL Microbiology Date/Time Source Procedure Growth Status 10/17/24 19:27 Nose MRSA Screen - Final Complete Problem List/Assessment/Plan Problem List/Assessment/Plan Acute kidney injury superimposed Chronic Kidney Disease stage 5 secondary hemodynamic mediated Myeloma cast nephropathy Hypercalcemia due to multiple myeloma Multiple myeloma awaiting chemotherapy Significant anemia status post packed red blood cell transfusion Recommendations Continue with UF 1-2 L as tolerated Epogen 85556 IV post hemodialysis Strict I&Os Renal diet Hematology consult We will continue to follow Plan discussed with: Patient, Spouse ASHLEY GORDON MD Oct 20, 2024 11:53
--- NOTE | 2024-10-20 12:49 | DVH ---
XY Insertion of Venous Cath, HISTORY: HD CATH PL PROCEDURE: Informed consent was obtained. The patient was placed supine on the interventional table. A limited localization ultrasound of the right neck base was obtained. The right neck base and upper chest were prepped with chlorhexidine which was allowed to dry and draped in the usual sterile fashio n. Time out was performed. IV Fentanyl was administered. The skin and the soft tissues were infiltrat ed with 1% Lidocaine mixed with Epinephrine. With real-time ultrasound guidance, the internal jugular vein was accessed with a micropuncture kit, and an image documenting patency was recorded to PACS. A subcutaneous tunneled tract was created from the right upper chest to the venotomy site. A 14.5 Fren ch Happy Path, 19 cm long hemodialysis catheter was advanced through the tunneled tract. Fluoroscopy was used to advance a guidewire through the internal jugular vein into the inferior vena cava. Following serial dilatation, a 15 Frisian peel-away sheath was introduced, though which was adva nced the catheter into the right atrium. The catheter tip position was confirmed with fluoroscopy. Th ere was satisfactory flow in both lumens. The catheter lumens were flushed with saline and heparin wa s left indwelling in the catheter. A post-procedure image of the chest was obtained. The neck incisio n site was closed with dermabond and dressed sterilely. The catheter was sutured at the skin surface and exit site also dressed sterilely. No immediate complication was identified. DAP 24.79 FLUOROSCOPY TIME: 0.9 minutes. FINDINGS: Widely patent right IJV. Post procedure image demonstrates smooth course of the hemodialysi s catheter with the tip in the right atrium. IMPRESSION: Successful placement of 14.5 Frisian Happy Path, 19 cm long hemodialysis catheter through right management internship al jugular vein. Plan: Please contact IR for removal when no longer needed.
[2024-10-20] MEDS ORDERED: SODIUM CHL 0.9% 1000 ML BAG XX ONE (13:30)
--- NOTE | 2024-10-20 14:07 | DVHPN2 ---
Consult Progress Note Date Seen: Oct 20, 2024 Subjective Review of Systems: CVS:Normal, RESPIRATORY:Normal, MSK:Abnormal, NEURO:Normal Other Systems: C/o left hip pain status post fall injury and nausea. Denies any cardiac complains Objective vital signs Vital Sign Date Time Temp Pulse Resp B/P (MAP) Pulse Ox O2 Delivery O2 Flow Rate FiO2 10/20/24 13:25 66 118/56 10/20/24 12:35 11 94 10/20/24 12:05 98.7 98.7 10/20/24 08:00 Room Air* 0 21 Total Intake and Output 10/19/24 10/19/24 10/20/24 15:00 23:00 07:00 Intake Total 1350 ml 950 ml Balance 1350 ml 950 ml medications Current Medications Medications Dose Ordered Sig/Juli Route Start Time Stop Time Status Last Admin Dose Admin Amiodarone HCl 200 mg BID PO 10/17/24 22:00 10/20/24 13:24 200 MG Calcitonin [place] 200 unit DAILY NA 10/18/24 10:00 Cancel Methimazole 5 mg TID PO 10/17/24 14:00 10/20/24 06:05 5 MG Lorazepam 0.5 mg Q6HP PRN PO 10/17/24 12:15 Al Hydrox/Mg Hydrox/Simethicone 30 ml Q6HP PRN PO 10/17/24 12:15 10/18/24 15:58 30 ML Docusate Sodium 100 mg BIDPRN PRN PO 10/17/24 12:15 10/18/24 15:58 100 MG Acetaminophen 650 mg Q6HP PRN PO 10/17/24 12:15 Acetaminophen/ Hydrocodone Bitart 1 tab Q4HP PRN PO 10/17/24 12:15 Ondansetron HCl 4 mg Q4HP PRN IV 10/17/24 12:15 10/20/24 12:50 4 MG Morphine Sulfate 2 mg Q4HPRN PRN IV 10/17/24 12:15 Sodium Chloride 1,000 ml @ 100 mls/hr Q10H IV 10/17/24 13:45 10/20/24 01:45 100 MLS/HR Calcitonin [place] 200 unit Q12H SC 10/17/24 18:00 10/18/24 06:01 Cancel Metoprolol Succinate 25 mg DAILY PO 10/18/24 10:00 10/20/24 13:25 25 MG Examination: GENERAL:Abnormal (Pale), LUNGS:Normal, CVS:Normal, SKIN:Abnormal (Bruise to left outer thigh), NEURO:Normal laboratory and microbiology Laboratory Tests 10/20/24 05:45 Test 10/20/24 05:45 Range/Units Serum Glucose 83 74-106 mg/dL Problem List/Assessment/Plan Problem List/Assessment/Plan Acute ST-elevation myocardial infarction (refused angiogram) Paroxysmal atrial fibrillation (not on NOAC therapy due to high-risk of bleeding) Severe acute anemia status post transfusion, -FOBT Multiple myeloma with bone metastasis Hypercalcemia secondary to abover MARTINEZ on CKD, now with HD Plan/Recommendation (Dr. Pérez) * Echocardiogram revealed EF 60%, RVSP 45mmHg * Antiarrhythmic agent, amiodarone BID * Rate control, beta-evy up-titrate as tolerated * Hold NOAC therapy given severe anemia * [id number] VASc score: 2 points, HAS-BLED score: 2 points * Patient/ aware of risk of acute CVA * Monitor and replete electrolytes as needed, keep K>4, Mag>2 * SCD's for DVT/VTE prophylaxis * Monitor H&H closely and transfuse as necessary * Left hip x-ray There is no further cardiac work-up indicated at this time. Kindly call if in need to re-consult. Thank you for allowing us to care for this patient. This medical document was created using an electronic medical record system with voice recognition software and computerized dictation system. Although this document has been carefully reviewed, there might still be some phonetic and typographical errors. Occasional wrong-word or ``sound-alike substitutions may have occurred due to the inherent limitations of voice recognition software. These areas are purely typographical due to imperfections of the software programs and do not reflect any compromise in the patient's medical care. Please read the chart carefully and recognize, using context, where these substitutions have occurred. Plan discussed with: Patient Date of Service: Oct 20, 2024 Billing Provider: CECY PÉREZ MD Cardiology Common Codes: [id number] HOSP CARE([facility] AIDEE WOO [facility] Oct 20, 2024 14:07
--- NOTE | 2024-10-20 16:06 | DVH ---
CLINICAL INFORMATION: 69 years old, Female; Left hip pain status post fall injury. TECHNIQUE: 2 views of the pelvis and left hip were obtained. COMPARISON: No prior dedicated left hip radiographs were available for comparison at the time of dict ation. Comparison is made to prior bone survey exam dated 09/17/2024. Prior CT of the abdomen and pel vis dated 09/16/2024. FINDINGS: Again seen is a large lytic lesion with areas of bony destruction involving the lateral asp ect of the left iliac bone, seen on prior imaging. No acute fracture or dislocation. Moderate joint s pace narrowing in both hips. Moderate sclerosis adjacent to the sacroiliac joints. Bowel gas, stool, and pelvic calcifications partially obscure visualization of the sacrum and coccyx. Bowel gas and st ool also partially obscures visualization of the pubic bones. Prominent calcifications in the pelvis, may be seen in the setting of uterine fibroids. IMPRESSION: 1. 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 Other malignan cy not excluded. 2. Additional findings as described above.
[2024-10-20] MEDS: HYDROcodone-ACET 5/325MG TAB PO PRN (16:14)
--- NOTE | 2024-10-20 17:21 | DVHPN2 ---
Subjective Seen and examined at bedside, tunneled dialysis catheter placed. Changes from previous H/P or p: No Changes Eyes: No Pain, No Vision change, No Conjunctivae inflammation, No Eyelid inflammation, No Other, No Redness ENT: No Ear pain, No Ear discharge, No Nose pain, No Nose discharge, No Nose congestion, No Mouth pain, No Mouth swelling, No Throat pain, No Throat swelling, No Other Cardiovascular: No Chest Pain, No Palpitations, No Orthopnea, No Paroxysmal Noc. Dyspnea, No Edema, No Lt Headedness, No Other Respiratory: No Cough, No Dry, No Shortness of breath, No SOB with excertion, No Wheezing, No Hemoptysis, No Pleuritic Pain, No Sputum, No Other Gastrointestinal: No Nausea, No Vomiting, No Abdominal Pain, No Diarrhea, No Constipation, No Melena, No Hematochezia, No Other Genitourinary: No Dysuria, No Frequency, No Incontinence, No Hematuria, No Retention, No Other Musculoskeletal: No other, No neck pain, No shoulder pain, No arm pain, No back pain, No hand pain, No leg pain, No foot pain Skin: No Rash, No Lesions, No Jaundice, No Bruising, No Other Objective Vitals Vital Signs Date Time Temp Pulse Resp B/P (MAP) Pulse Ox O2 Delivery O2 Flow Rate FiO2 10/20/24 17:05 123/66 (85) 10/20/24 13:25 66 10/20/24 12:35 11 94 10/20/24 12:05 98.7 98.7 10/20/24 08:00 Room Air* 0 21 Intake/Output Intake and Output 10/20/24 07:00 Intake Total 2300 ml Balance 2300 ml Intake Oral 900 ml IV Total 800 ml Blood Product 300 ml Other 300 ml # Voids 4 # Bowel Movements 1 General Appearance: Alert, Oriented X3, Cooperative, No acute distress HEENT: Atraumatic Neck: Other (Right Tunneled Dialysis Catheter) Lungs: Clear to auscultation Cardiovascular: Regular rate, Normal S1, Normal S2 Abdomen: Normal bowel sounds, Soft, Other (cachectic) Rectal: Deferred Psych/Mental Status: Mental status NL Medications Current Medications Medications Dose Ordered Sig/Juli Route Start Time Stop Time Status Last Admin Dose Admin Amiodarone HCl 200 mg BID PO 10/17/24 22:00 10/20/24 13:24 200 MG Calcitonin [place] 200 unit DAILY NA 10/18/24 10:00 Cancel Methimazole 5 mg TID PO 10/17/24 14:00 10/20/24 16:08 5 MG Lorazepam 0.5 mg Q6HP PRN PO 10/17/24 12:15 Al Hydrox/Mg Hydrox/Simethicone 30 ml Q6HP PRN PO 10/17/24 12:15 10/18/24 15:58 30 ML Docusate Sodium 100 mg BIDPRN PRN PO 10/17/24 12:15 10/18/24 15:58 100 MG Acetaminophen 650 mg Q6HP PRN PO 10/17/24 12:15 Acetaminophen/ Hydrocodone Bitart 1 tab Q4HP PRN PO 10/17/24 12:15 10/20/24 16:14 1 TAB Ondansetron HCl 4 mg Q4HP PRN IV 10/17/24 12:15 10/20/24 12:50 4 MG Morphine Sulfate 2 mg Q4HPRN PRN IV 10/17/24 12:15 Sodium Chloride 1,000 ml @ 100 mls/hr Q10H IV 10/17/24 13:45 10/20/24 01:45 100 MLS/HR Calcitonin [place] 200 unit Q12H SC 10/17/24 18:00 10/18/24 06:01 Cancel Metoprolol Succinate 25 mg DAILY PO 10/18/24 10:00 10/20/24 13:25 25 MG Laboratory Results Laboratory Tests 10/20/24 05:45 Chemistry Test 10/20/24 05:45 Calcium Level 12.1 mg/dL (8.7-10.4) H Coagulation Test 10/20/24 05:45 Prothrombin Time 11.4 sec (9.3-11.8) Prothrombin Time INR 1.08 (0.9-1.15) Activated Partial Thromboplast Time 30.8 SEC (24.5-34.5) Urinalysis Test 10/17/24 21:03 10/17/24 23:41 Urine Color Straw (Yellow) Urine Clarity Clear (Clear) Urine pH 7.0 (5.0-9.0) Urine Specific [place] 1.007 (1.001-1.035) Urine Protein 1+ (Negative) H Urine Ketones Negative (Negative) Urine Blood Trace /uL (Negative) H Urine Nitrite Negative (Negative) Urine Bilirubin Negative (Negative) Urine Urobilinogen Normal mg/dL (Negative) Urine Leukocyte Esterase Negative /uL (Negative) Urine RBC 1 /hpf (0 - 4) Urine WBC 5 /hpf (0 - 5) Urine Squamous Epithelial Cells Few /hpf (<5) Urine Bacteria /hpf (None Seen) Urine Glucose Normal mg/dL (Normal) Urine Creatinine 18.91 mg/dL (30.0-125.0) L Urine Sodium 92 mmol/L (40-220) Urine Total Protein Pending Urine Albumin Pending Urine [id number] Pending Urine [id number] Pending Urine Beta Globulin Pending Urine Gamma Globulin Pending Ur Protein Electrophoresis M-Moi Pending Urine Protein Electrophoresis Note Pending Microbiology Microbiology Date/Time Source Procedure Growth Status 10/17/24 19:27 Nose MRSA Screen - Final Complete Assessment/Plan Assessment/Plan # MARTINEZ due to Multiple Myeloma - HD per Nephro - Nephro Cx # Hypercalcemia # Multiple Myeloma with bone metastasis - As managed by Dr. Lewis in outpatient # Protein Malnutrition, underweight - Dietary Cx Plan discussed with: Patient Date of Service: Oct 20, 2024 Billing Provider: JANELLE FULTON MD Common Visit Codes: [id number] INP/OBS CARE(HIGH) JANELLE FULTON MD Oct 20, 2024 17:21
[2024-10-20] MEDS: ALBUMIN 25% 100 ML IV ONE ×2 (17:30→19:38)
[2024-10-20] MEDS: EPOETIN ALFA-EPBX 10,000 UNIT/1ML VIAL SC ONE (22:47)
[2024-10-21 00:58] VITALS: BP 86/40; PULSE 72; RESP 16; TEMP 98.6; O2SAT 92
[2024-10-21] MEDS: ALBUMIN 5% 250 ML IV ONE (01:08)
[2024-10-21 05:00] VITALS: BP 110/53; PULSE 66; RESP 16; TEMP 98.2; O2SAT 96
[2024-10-21 08:00] VITALS: O2SAT 98
[2024-10-21 09:00] VITALS: BP 123/61; PULSE 74; RESP 16; TEMP 98.3; O2SAT 94
--- NOTE | 2024-10-21 11:27 | DVHPN2 ---
Progress Note Date Seen: Oct 21, 2024 Medical Necessity Reason Pt with a Central, PICC or Fol: No Subjective Patient reports: No new complaints Other Systems: Patient seen and examined by myself today on rounds Objective vital signs Vital Sign Date Time Temp Pulse Resp B/P (MAP) Pulse Ox O2 Delivery O2 Flow Rate FiO2 10/21/24 10:13 76 115/50 10/21/24 09:00 98.3 16 94 98.3 10/21/24 08:00 Room Air* 0 21 Total Intake and Output 10/20/24 10/20/24 10/21/24 15:00 23:00 07:00 Intake Total 1860 ml 350 ml Output Total 800 ml Balance 1060 ml 350 ml medications Current Medications Medications Dose Ordered Sig/Juli Route Start Time Stop Time Status Last Admin Dose Admin Amiodarone HCl 200 mg BID PO 10/17/24 22:00 10/21/24 10:13 200 MG Calcitonin [place] 200 unit DAILY NA 10/18/24 10:00 Cancel Methimazole 5 mg TID PO 10/17/24 14:00 10/21/24 06:23 5 MG Lorazepam 0.5 mg Q6HP PRN PO 10/17/24 12:15 Al Hydrox/Mg Hydrox/Simethicone 30 ml Q6HP PRN PO 10/17/24 12:15 10/18/24 15:58 30 ML Docusate Sodium 100 mg BIDPRN PRN PO 10/17/24 12:15 10/18/24 15:58 100 MG Acetaminophen 650 mg Q6HP PRN PO 10/17/24 12:15 Acetaminophen/ Hydrocodone Bitart 1 tab Q4HP PRN PO 10/17/24 12:15 10/21/24 10:03 1 TAB Ondansetron HCl 4 mg Q4HP PRN IV 10/17/24 12:15 10/20/24 12:50 4 MG Morphine Sulfate 2 mg Q4HPRN PRN IV 10/17/24 12:15 Sodium Chloride 1,000 ml @ 100 mls/hr Q10H IV 10/17/24 13:45 10/20/24 21:45 100 MLS/HR Calcitonin [place] 200 unit Q12H SC 10/17/24 18:00 10/18/24 06:01 Cancel Metoprolol Succinate 25 mg DAILY PO 10/18/24 10:00 10/21/24 10:13 25 MG Examination: LUNGS:Normal, CVS:Normal, MSK:Normal laboratory and microbiology Laboratory Tests 10/20/24 05:45 Test 10/20/24 05:45 Range/Units Serum Glucose 83 74-106 mg/dL Microbiology Date/Time Source Procedure Growth Status 10/17/24 19:27 Nose MRSA Screen - Final Complete Problem List/Assessment/Plan Problem List/Assessment/Plan Acute kidney injury superimposed Chronic Kidney Disease stage 5 secondary hemodynamic mediated Myeloma cast nephropathy Hypercalcemia due to multiple myeloma Multiple myeloma awaiting chemotherapy Significant anemia status post packed red blood cell transfusion Hypotension Recommendations Hemodialysis tomorrow Epogen 98446 IV post hemodialysis Strict I&Os Renal diet Midodrine 10 mg p.o. t.i.d. for blood pressure support Discontinue metoprolol Hematology consult We will continue to follow Plan discussed with: Patient My Orders My Orders Orders - ASHLEY GORDON MD Procedure Category Date Status Time Hemodialysis Orders ORDERS 10/20/24 Transmitted 13:30 Dialysis Nursing ESTRELLA 10/20/24 In Process Message 13:30 Document Fluid Input ESTRELLA 10/20/24 Verified And Outpu 13:30 Midodrine Tablet PHA 10/21/24 Verified (Proamatine Tablet) 12:00 ASHLEY GORDON MD Oct 21, 2024 11:27
[2024-10-21] MEDS: MIDODRINE HCL 10 MG TAB PO SCH (12:00)
[2024-10-21 13:00] VITALS: BP 114/50; PULSE 74; RESP 16; TEMP 97.6; O2SAT 94
--- NOTE | 2024-10-21 15:24 | DVHDS2 ---
Discharge Summary Date of Admission Oct 17, 2024 at 12:14 Date of Discharge: Oct 22, 2024 Labs/Diagnostic Data: Laboratory Results Test 10/20/24 05:45 10/19/24 10:45 10/19/24 05:14 10/18/24 05:40 White Blood Count 6.6 10^3/uL (4.4-10.8) Red Blood Count 2.77 10^6/uL (4.0-5.20) Hemoglobin 8.4 g/dL (12.2-16.2) Hematocrit 24.8 % (36.0-46.0) Mean Corpuscular Volume 89.4 fL (80.0-100.0) Mean Corpuscular Hemoglobin 30.2 pg (28.0-32.0) Mean Corpuscular Hemoglobin Concent 33.8 g/dL (32.0-36.0) Red Cell Distribution Width 15.2 % (11.8-14.3) Platelet Count 137 10^3/uL (140-450) Mean Platelet Volume 7.5 fL (6.9-10.8) Neutrophils (%) (Auto) 73.4 % (37.0-80.0) Lymphocytes (%) (Auto) 13.0 % (10.0-50.0) Monocytes (%) (Auto) 10.5 % (0.0-12.0) Eosinophils (%) (Auto) 2.2 % (0.0-7.0) Basophils (%) (Auto) 0.9 % (0.0-2.0) Neutrophils # (Auto) 4.8 10 ^3/uL (1.6-8.6) Lymphocytes # (Auto) 0.9 10 ^3/uL (0.4-5.4) Monocytes # (Auto) 0.7 10 ^3/uL (0-1.3) Eosinophils # (Auto) 0.1 10 ^3/uL (0-0.8) Basophils # (Auto) 0.1 10 ^3/uL (0-0.2) Nucleated Red Blood Cells 0.0 % Prothrombin Time 11.4 sec (9.3-11.8) Prothrombin Time INR 1.08 (0.9-1.15) Activated Partial Thromboplast Time 30.8 SEC (24.5-34.5) Sodium Level 131 mmol/L (136-145) Potassium Level 4.4 mmol/L (3.5-5.1) Chloride Level 100 mmol/L (98-107) Carbon Dioxide Level 21 mmol/L (20-31) Anion Gap 10 (5-15) Blood Urea Nitrogen 35 mg/dL (9-23) Creatinine 4.89 mg/dL (0.550-1.02) Glomerular Filtration Rate Calc 9 mL/min (>90) BUN/Creatinine Ratio 7.2 (10.0-20.0) Serum Glucose 83 mg/dL (74-106) Calcium Level 12.1 mg/dL (8.7-10.4) Stool Occult Blood Negative (Negative) Stool Occult Blood Sample #3 (Negative) Total Bilirubin 0.2 mg/dL (0.2-1.0) Direct Bilirubin < 0.1 mg/dL (<0.3) Aspartate Amino Transferase (AST) 13 U/L (13-40) Alanine Aminotransferase (ALT) 11 U/L (7-40) Alkaline Phosphatase 74 U/L (46-116) Total Protein 7.2 g/dL (5.7-8.2) Albumin 3.0 g/dL (3.2-4.8) Hepatitis B Surface Antigen Negative (Negative) Serum Immunoglobulin G 284 mg/dL (586-1602) Uric Acid 9.2 mg/dL (3.1-7.8) Phosphorus Level 4.2 mg/dL (2.4-5.1) Vitamin D 25-Hydroxy 66.2 ng/mL (30.0-100) Thyroid Stimulating Hormone (TSH) 0.05 uIU/mL (0.55-4.78) Parathyroid Hormone (Intact) 21.9 pg/mL (18.4-80.1) Immunoglobulin A 2229 mg/dL (87-352) Immunoglobulin M 11 mg/dL (26-217) Test 10/17/24 23:41 10/17/24 21:03 10/17/24 14:11 10/17/24 10:50 Urine Creatinine 18.91 mg/dL (30.0-125.0) Urine Sodium 92 mmol/L (40-220) Urine Color Straw (Yellow) Urine Clarity Clear (Clear) Urine pH 7.0 (5.0-9.0) Urine Specific [place] 1.007 (1.001-1.035) Urine Protein 1+ (Negative) Urine Ketones Negative (Negative) Urine Blood Trace /uL (Negative) Urine Nitrite Negative (Negative) Urine Bilirubin Negative (Negative) Urine Urobilinogen Normal mg/dL (Negative) Urine Leukocyte Esterase Negative /uL (Negative) Urine RBC 1 /hpf (0 - 4) Urine WBC 5 /hpf (0 - 5) Urine Squamous Epithelial Cells Few /hpf (<5) Urine Bacteria /hpf (None Seen) Urine Glucose Normal mg/dL (Normal) Troponin I High Sensitivity 22 ng/L (</=34) Lactic Acid Level 1.1 mmol/L (0.4-2.0) Magnesium Level 2.0 mg/dL (1.6-2.6) B-Type Natriuretic Peptide 290.94 pg/mL (0-100) Other Laboratory Tests 10/20/24 05:45 Brief Hx & Hospital Course: This is a 69-year-old female patient who presents to the emergency room with chief complaint of abnormal lab values. She was told by her primary physician to come to the emergency room due to abnormal lab values. Upon emergency room arrival, a twelve lead electrocardiogram was performed and revealed normal sinus rhythm with ST elevation to lateral leads. The patient denies any chest pain, shortness of breath, palpitations, or other cardiac symptoms. Significant past medical history includes paroxysmal atrial fibrillation (not on NOAC therapy), anemia with recent packed red blood cell transfusion, multiple myeloma with metastasis, chronic kidney disease, and GERD. This patient was recently seen in this hospital and is well-known by staff. Patient was seen in Nephrology consult, was started on dialysis intermittently. Patient had a tunneled dialysis catheter place tolerated procedure well. Will continue outpatient dialysis as needed. Condition at Discharge: Poor Final Diagnosis/Problems List # MARTINEZ due to Multiple Myeloma - HD per Nephro # Hypercalcemia # Multiple Myeloma with bone metastasis - As managed by Dr. Lewis in outpatient # Protein Malnutrition, underweight - Dietary Cx Discharge Disposition: Home Discharge Instruct/Medications Diet: Renal Activity: Light activity Follow Up/Referral: Dr. Lewis Discharge Statement: "Patient was advised to return to the ER or call 911 if any headaches, dizziness, shortness of breath, chest pain, abdominal pain, bleeding, fevers, or worsening of medical condition. Patient was counseled about treatment plan, medications, possible side effects, patientverbalized understanding. All questions were answered to the best of my ability. This discharge took greater then 30 minutes in planning, reviewing documentation, counseling the patient, and discussing with other team members." ASSESSMENT ASSESSMENT Assessment Date of Service: Oct 21, 2024 Billing Provider: JANELLE FULTON MD Common Visit Codes: [id number] DISCH DAY >30min JANELLE FULTON MD Oct 21, 2024 15:24
[2024-10-21 16:06] LABS: Albumin Urine 4.6 % (.); Alpha-1-Globulin Urine 1.6 % (.); Alpha-2-Globulin Urine 4.4 % (.); Beta Globulin Urine 11.5 % (.); Gamma Globulin Urine 77.9 % (.); M-Spike % 72.8 % (Not Observed)
[2024-10-22] MEDS ORDERED: SODIUM CHL 0.9% 1000 ML BAG XX ONE (07:00)
[2024-10-22] MEDS ORDERED: EPOETIN ALFA-EPBX 10,000 UNIT/1ML VIAL SC ONE (21:00)
== END 2024-10-21 18:20 | disposition home or self-care (01) | DRG 640 ==
LOC: ER 09:58 → OVERFLOW 12:14 → WEST WING 17:40 → TELE-WESTW 10-19 16:29
PROVIDERS: ADMIT Hospitalist; ATTEND Internal Medicine
PROC: 30233N1 Transfusion of Nonautologous Red Blood Cells into Peripheral Vein, Percutaneous Approach (ICD-10-PCS; 2024-10-19)
PROC: 0JH63XZ Insertion of Tunneled Vascular Access Device into Chest Subcutaneous Tissue and Fascia, Percutaneous Approach (ICD-10-PCS; principal; 2024-10-20)
PROC: 02H633Z Insertion of Infusion Device into Right Atrium, Percutaneous Approach (ICD-10-PCS; 2024-10-20)
PROC: B5181ZA Fluoroscopy of Superior Vena Cava using Low Osmolar Contrast, Guidance (ICD-10-PCS; 2024-10-20)
PROC: B548ZZA Ultrasonography of Superior Vena Cava, Guidance (ICD-10-PCS; 2024-10-20)
PROC: 5A1D70Z Performance of Urinary Filtration, Intermittent, Less than 6 Hours Per Day (ICD-10-PCS; 2024-10-20)
DX: E83.52 Hypercalcemia (principal); N18.6 End stage renal disease; C90.00 Multiple myeloma not having achieved remission; N17.9 Acute kidney failure, unspecified; E46 Unspecified protein-calorie malnutrition; E87.1 Hypo-osmolality and hyponatremia; Z68.1 Body mass index [BMI] 19.9 or less, adult; I12.0 Hypertensive chronic kidney disease with stage 5 chronic kidney disease or end stage renal disease; E44.0 Moderate protein-calorie malnutrition; D64.9 Anemia, unspecified; I48.0 Paroxysmal atrial fibrillation; Z82.49 Family history of ischemic heart disease and other diseases of the circulatory system; Z82.3 Family history of stroke; Z80.3 Family history of malignant neoplasm of breast; Z83.3 Family history of diabetes mellitus; Z79.899 Other long term (current) drug therapy
CPT/HCPCS: 36415; 36558; 71045; 73501; 76775; 77001; 80048; 80053; 80076; 81001; 82270; 82306; 82330; 82570; 82784; 83605; 83735; 83880; 83970; 84100; 84156; 84166; 84300; 84439; 84443; 84484; 84550; 85014; 85018; 85025; 85610; 85730; 86334; 86850; 86900; 86901; 86920; 87081; 87340; 90935; 93005; 99152; 99291; C1894; G0378; J2405; P9047

== ENCOUNTER 2024-10-27 14:54 | Inpatient (IN) | payer OTHER ==
[~2024-10-27] VITALS: Ht 175.3 cm; Wt 59.1 kg
--- NOTE | 2024-10-27 15:56 | DVH ---
CHEST RADIOGRAPH Indication: gen weak Technique: Single frontal view of the chest was obtained COMPARISON: XY CHEST PORTABLE on DOS: 10/17/24, XY CHEST PORTABLE on DOS: 10/12/24, XY CHEST XRAY 1 V IEW on DOS: 10/06/24 FINDINGS: Lines and Tubes: Tunneled right central venous catheter in satisfactory position. Lungs: Pulmonary vascular congestion Pleura: Small bilateral pleural effusions. No pneumothorax. Cardiomediastinal contours: Unremarkable Bones: Unremarkable IMPRESSION: Fluid overload.
[2024-10-27 17:21] LABS: Basophils # (auto) 0.1 10 ^3/uL (0-0.2); Basophils % (auto) 0.6 % (0.0-2.0); Eosinophils # (auto) 0 10 ^3/uL (0-0.8); Eosinophils % (auto) 0.4 % (0.0-7.0); Hematocrit 28.5 % (36.0-46.0); Hemoglobin 9.4 g/dL (12.2-16.2); Lymphocytes % (auto) 8.4 % (10.0-50.0); Mean Corpuscular Hgb Conc. 32.8 g/dL (32.0-36.0); Mean Corpuscular Volume 91.4 fL (80.0-100.0); Monocytes # (auto) 0.8 10 ^3/uL (0-1.3); Monocytes % (auto) 6.7 % (0.0-12.0); Neutrophils # (auto) 9.5 10 ^3/uL (1.6-8.6); Neutrophils % (auto) 83.9 % (37.0-80.0); Nucleated Red Blood Cells % 0.2 %; Platelet Count (auto) 165 10^3/uL (140-450); Red Blood Cells 3.12 10^6/uL (4.0-5.20); Red Cell Distribution Width 16.8 % (11.8-14.3); White Blood Cell 11.3 10^3/uL (4.4-10.8)
--- NOTE | 2024-10-27 17:31 | ED.PDOC ---
History of Present Illness HPI Comments HPI: Poor Historian. 69-year-old female presents to the emergency department from her PCP's office because she missed dialysis today. Patient was recently discharged from the hospital last week on 10/21/24 and Dx with:# MARTINEZ due to Multiple Myeloma - HD per Nephro; # Hypercalcemia; # Multiple Myeloma with bone metastasis - As managed by Dr. Lewis in outpatient; # Protein Malnutrition, underweight - Dietary Cx. Patient started dialysis last week. Patient denies any active acute symptoms. She has multiple chronic conditions. Patient was sent here for generalized weakness. Past Medcial History: paroxysmal AFIB, anemia, multiple myeloma with metastasis, CKF V, GERD, [place], UTI's, thyroid disease Past Surgical History: denies REVIEW OF SYSTEMS: CONSTITUTIONAL: Denies acute: fever, diaphoresis, chills, HEAD: Denies acute: headache, photophobia Eyes: Denies acute: Double vision, vision loss, eye pain, eye discharge. EARS: Denies acute: tinnitus, hearing loss, ear discharge, ear pain, THROAT: Denies acute: sore throat, swelling, difficulty swallowing , pain with swallowing, change in voice. NECK: Denies acute: neck pain, neck swelling, stiff neck. HEART: Denies acute : chest pain, palpitations, LUNGS: Denies acute: SOB, wheezing, cough, hemoptysis ABDOMEN: Denies acute: abdominal pain, Nausea, Vomiting, diarrhea, melena , hematemesis, hematochezia SKIN: Denies acute: rash, redness, lesions, itchiness. EXTREMITIES: Denies acute: calf pain, numbness, tingling, weakness, denies pain in extremity. Denies acute: Low back pain. Neuro: Denies acute: focal neurological deficit, motor or sensory focal neurological deficit, tremors, seizure like activity, confusion, dizziness, change in mental status, loss of bowel or bladder function, cauda equina like symptoms. : Denies acute: dysuria, hematuria, flank pain, increase in urinary frequency. PSYCH: Denies acute: hallucination, suicidal ideation, homicidal ideation. FEMALE: Denies acute: abnormal vaginal bleeding, foul odor, unusual discharge. PHYSICAL EXAM: General: no acute distress, awake and alert. Head: normocephalic, atraumatic. Neck: supple, trachea is midline, no swelling. Throat: Normal phonation. Eyes:, no erythema, no purulent discharge, no proptosis, no icterus. Heart: regular rate, regular rhythm, no significant murmur appreciated. Lungs: no apparent respiratory distress, Able to speak in full sentences. No wheezing, no rhonchi, no crackles. No stridors Clear to auscultation bilaterally. Abdomen: non tender to palpation, non distended, soft, no guarding, no rebound, + bowel sounds. Neuro: Awake, Alert, oriented to name, self, situation, follows commands GCS=15. Speech is normal. Skin: no petechia, no purpura, no cyanosis, non-pale, not jaundice. Lower extremities: --3/4 b/l - Pitting edema no deformity, no focal swelling, no calf TTP. Makes eye contact. moves all four extremities. Face: no apparent facial droop. Chief Complaint: Extremity Swelling Time Seen by MD: 15:19 Primary Care Provider: ROYA Hogan Notes: Nurses Notes, Medications, Allergies Allergies: Coded Allergies: NO KNOWN ALLERGIES (Unverified , 09/16/24) Home Meds Active Scripts Calcitonin ([place]) (Calcitonin [place]) 200 Unit/Act Spr, 200 UNIT NA DAILY for 14 Days, #10 BOTTLE 1 SPRAY INTO ALTERNATE NOSTRIL DAILY Prov:KAITLYNN MAJOR RESIDENT 09/23/24 Amiodarone HCl (Amiodarone Hydrocloride) 200 Mg Tab, 200 MG PO BID for 30 Days, #60 TAB Prov:KAITLYNN MAJOR RESIDENT 09/23/24 Methimazole (Methimazole) 5 Mg Tab, 5 MG PO TID for 30 Days, #90 TAB Prov:KAITLYNN MAJOR RESIDENT 09/23/24 Reported Medications Ondansetron HCl (Ondansetron) 4 Mg Tab, 4 MG PO, TAB 10/28/24 Midodrine HCl (Midodrine HCl) 10 Mg Tab, 10 MG GT, TAB 10/28/24 Omeprazole (Gnp Omeprazole) 20 Mg Tab, 20 MG PO, TAB 09/21/24 Information Source: Patient Mode of Arrival: Wheelchair Past Medical History PAST MEDICAL HISTORY: AFIB, Anemia, Cancer, CKF, [place], Thyroid, UTI'S Surgical History: Denies all surgeries CERTIFIED PROCEDURAL CODER History: Denies all CERTIFIED PROCEDURAL CODER Hx Family History Family History: Unknown Social History Smoker: Non-Smoker Alcohol: Denies ETOH Use Drugs: Marijuana Lives In: Home Was a procedure done? Was a procedure done?: No Differential Dx Considerations may include: Includes but not limited to thyroid disease, encephalopathy, electrolyte abnormality, sepsis, infection, intracranial pathology, drug adverse effects, arrhythmia, kidney insufficiency, ACS, CVA, malignancy, anemia X-Ray, Labs, Meds, VS Vital Signs Date Time Temp Pulse Resp B/P (MAP) Pulse Ox O2 Delivery O2 Flow Rate FiO2 10/27/24 18:15 71 10/27/24 16:15 69 10/27/24 15:12 98.1 72 18 141/82 (101) 94 Lab Test 10/27/24 18:34 10/27/24 17:05 Range/Units Troponin I High Sensitivity 30 30 </=34 ng/L White Blood Count 11.3 H 4.4-10.8 10^3/uL Red Blood Count 3.12 L 4.0-5.20 10^6/uL Hemoglobin 9.4 L 12.2-16.2 g/dL Hematocrit 28.5 L 36.0-46.0 % Mean Corpuscular Volume 91.4 80.0-100.0 fL Mean Corpuscular Hemoglobin 30.0 28.0-32.0 pg Mean Corpuscular Hemoglobin Concent 32.8 32.0-36.0 g/dL Red Cell Distribution Width 16.8 H 11.8-14.3 % Platelet Count 165 140-450 10^3/uL Mean Platelet Volume 6.6 L 6.9-10.8 fL Neutrophils (%) (Auto) 83.9 H 37.0-80.0 % Lymphocytes (%) (Auto) 8.4 L 10.0-50.0 % Monocytes (%) (Auto) 6.7 0.0-12.0 % Eosinophils (%) (Auto) 0.4 0.0-7.0 % Basophils (%) (Auto) 0.6 0.0-2.0 % Neutrophils # (Auto) 9.5 H 1.6-8.6 10 ^3/uL Lymphocytes # (Auto) 1.0 0.4-5.4 10 ^3/uL Monocytes # (Auto) 0.8 0-1.3 10 ^3/uL Eosinophils # (Auto) 0 0-0.8 10 ^3/uL Basophils # (Auto) 0.1 0-0.2 10 ^3/uL Nucleated Red Blood Cells 0.2 % Sodium Level 130 L 136-145 mmol/L Potassium Level 4.8 3.5-5.1 mmol/L Chloride Level 96 L 98-107 mmol/L Carbon Dioxide Level 23 20-31 mmol/L Anion Gap 11 5-15 Blood Urea Nitrogen 25 H 9-23 mg/dL Creatinine 3.85 H 0.550-1.02 mg/dL Glomerular Filtration Rate Calc 12 >90 mL/min BUN/Creatinine Ratio 6.5 L 10.0-20.0 Serum Glucose 83 74-106 mg/dL Lactic Acid Level 0.9 0.4-2.0 mmol/L Calcium Level 15.3 *H 8.7-10.4 mg/dL Total Bilirubin 0.3 0.2-1.0 mg/dL Aspartate Amino Transferase (AST) 33 13-40 U/L Alanine Aminotransferase (ALT) 14 7-40 U/L Alkaline Phosphatase 105 46-116 U/L B-Type Natriuretic Peptide 1137.31 0-100 pg/mL Total Protein 8.1 5.7-8.2 g/dL Albumin 3.2 3.2-4.8 g/dL [place] [id number] Ph: [phone] DIAGNOSTIC IMAGING Diagnostic Imaging Report : [id number] Signed PATIENT: PALMIRA VEE ACCT: [id number] UNIT: [id number] : 1955 LOC: ER ROOM / BED: / AGE / SEX: 69 / F ADM STATUS: REG ER SERVICE 1529 ORDERING PHYSICIAN: LINCOLN MOSER DO PROCEDURE(s): CXRP - CHEST PORTABLE REASON: gen weak ORDER NUMBER(s): [id number], ACCESSION NUMBER(s): [id number] CHEST RADIOGRAPH Indication: gen weak Technique: Single frontal view of the chest was obtained COMPARISON: XY CHEST PORTABLE on DOS: 10/17/24, XY CHEST PORTABLE on DOS: 10/12/24, XY CHEST XRAY 1 VIEW on DOS: 10/06/24 FINDINGS: Lines and Tubes: Tunneled right central venous catheter in satisfactory position. Lungs: Pulmonary vascular congestion Pleura: Small bilateral pleural effusions. No pneumothorax. Cardiomediastinal contours: Unremarkable Bones: Unremarkable IMPRESSION: Fluid overload. ATED BY: ANGEL ALEMAN MD DICTATED DATE/TIME: 10/27/241551 SIGNED BY: ANGEL ALEMAN MD SIGNED DATE/TIME: 10/27/241551 CC: Time of 1ST Reevaluation: 00:00 Reevaluation 1ST: Unchanged Patient Education/Counseling: Diagnosis, Treatment Family Education/Counseling: No Family Present Comments Patient presented with the above HPI.----generalized weakness--workup was initiated. patient was found with the above mentioned diagnosis. Patient was given: Patient was given Lasix Patient ED course and VS have been stabilized. Patient has been reassessed in the ED and remained in a stable condition. Pertinent incidental findings were discussed with the patient and/or family. Patient/family voices understanding and is agreeable with plan. Patient has been observed in the ED adequate length of time to insure improvement/stability. patient was admitted to the medicine team for further evaluation and treatment of their presentation. All the reports of any imaging studies that were ordered by myself were reviewed by myself. Departure 1 Departure Time of Disposition: 18:05 Impression: Primary Impression: Hypercalcemia Additional Impressions: End-stage renal disease on hemodialysis Volume overload Elevated brain natriuretic peptide (BNP) level Hyponatremia Disposition: ADMITTED INPATIENT Admit to: [facility] Condition: Guarded Discharged With: Self Critical Care Note Critical Care Time?: Yes (45 min-critical care time only) I personally scribed for LINCOLN MOSER DO ([email or web address]) on 10/27/24 at 17:59. Electronically submitted by Napoleon Bhatt ([email or web address]). I personally scribed for LINCOLN MOSER DO ([email or web address]) on 10/27/24 at 18:04. Electronically submitted by Napoleon Bhatt ([email or web address]). I personally scribed for LINCOLN MOSER DO ([email or web address]) on 10/27/24 at 21:28. Electronically submitted by Jaime Adair ([email or web address]). LINCOLN MOSER DO Oct 27, 2024 17:31
[2024-10-27 17:44] LABS: Alanine Aminotransferase 14 U/L (7-40); Albumin 3.2 g/dL (3.2-4.8); Alkaline Phosphatase 105 U/L (46-116); Anion Gap 11 (5-15); Aspartate Aminotransferase 33 U/L (13-40); BUN/Creatinine Ratio 6.5 (10.0-20.0); Blood Urea Nitrogen 25 mg/dL (9-23); Carbon Dioxide 23 mmol/L (20-31); Chloride 96 mmol/L (98-107); Glucose 83 mg/dL (74-106); Potassium 4.8 mmol/L (3.5-5.1); Sodium 130 mmol/L (136-145)
[2024-10-27 17:45] LABS: Bilirubin, Total 0.3 mg/dL (0.2-1.0); Total Protein 8.1 g/dL (5.7-8.2)
[2024-10-27 17:56] LABS: Calcium 15.3 mg/dL (8.7-10.4)
--- NOTE | 2024-10-27 18:17 | ECG ---
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
--- NOTE | 2024-10-27 19:27 | DVHHP2 ---
History of Present Illness Reason for Visit: End-stage renal disease History of Present Illness 69-year-old female presents for evaluation of possible need for dialysis. Patient was seen by her primary care provider's office today and was advised to present to the emergency department due to the need of dialysis. Patient repo rts having her 2nd session of dialysis last week on Sunday. Today while her primary care provider's office she was noted to be possibly overloaded and was advised to present for further evaluation. She reports some chest tightness. Reports lower extremity swelling. States by having mild shortness for breath and nausea. No chest pain. No other acute complaints reported. Past Medical History AFib, myeloma, end-stage renal disease, mi, thyroid disease Past Surgical History Denies Family History Noncontributory Smoke: No ALCOHOL: none Drugs: None Lives: with Family Review of Systems Review of Systems Review of systems are currently negative otherwise addressed HPI. Allergies: Coded Allergies: NO KNOWN ALLERGIES (Unverified , 09/16/24) Medications Current Medications Medications Dose Ordered Sig/Juli Route Start Time Stop Time Status Last Admin Dose Admin Amlodipine Besylate 5 mg DAILY PO 10/28/24 10:00 UNV Ondansetron HCl 4 mg Q4HP PRN IV 10/27/24 19:30 UNV Acetaminophen 650 mg Q6HP PRN PO 10/27/24 19:30 UNV Exam Vital Signs Vital Signs Date Time Temp Pulse Resp B/P (MAP) Pulse Ox O2 Delivery O2 Flow Rate FiO2 10/27/24 18:15 71 10/27/24 15:12 98.1 18 141/82 (101) 94 Exam Gen: 69-year-old female in mild distress Skin: Warm, dry, normal color and texture, no rash. HEENT: Normocephalic atraumatic, mucous membranes moist and pink. Neck: Cervical and supraclavicular nodes normal without enlargement, trachea is midline, thyroid gland is normal without masses. Pulmonary: Clear to auscultation and percussion bilaterally. Cardiac: Regular rate and rhythm. No murmur Abdomen: Soft, nontender, nondistended, bowel sounds present all 4 quadrants, no guarding, no rigidity, no organomegaly. Extremities: No cyanosis, clubbing, no edema Neuro: Cranial nerves II through XII grossly intact, normal affect and speech, no focal motor deficits. Labs/Xrays ORDERING PHYSICIAN: LINCOLN MOSER DO PROCEDURE(s): CXRP - CHEST PORTABLE REASON: gen weak ORDER NUMBER(s): [id number], ACCESSION NUMBER(s): [id number] CHEST RADIOGRAPH Indication: gen shelby Technique: Single frontal view of the chest was obtained COMPARISON: XY CHEST PORTABLE on DOS: 10/17/24, XY CHEST PORTABLE on DOS: 10/12/24, XY CHEST XRAY 1 VIEW on DOS: 10/06/24 FINDINGS: Lines and Tubes: Tunneled right central venous catheter in satisfactory position. Lungs: Pulmonary vascular congestion Pleura: Small bilateral pleural effusions. No pneumothorax. Cardiomediastinal contours: Unremarkable Bones: Unremarkable IMPRESSION: Fluid overload. Labs Test 10/27/24 18:34 10/27/24 17:05 Range/Units White Blood Count 11.3 H 4.4-10.8 10^3/uL Red Blood Count 3.12 L 4.0-5.20 10^6/uL Hemoglobin 9.4 L 12.2-16.2 g/dL Hematocrit 28.5 L 36.0-46.0 % Mean Corpuscular Volume 91.4 80.0-100.0 fL Mean Corpuscular Hemoglobin 30.0 28.0-32.0 pg Mean Corpuscular Hemoglobin Concent 32.8 32.0-36.0 g/dL Red Cell Distribution Width 16.8 H 11.8-14.3 % Platelet Count 165 140-450 10^3/uL Mean Platelet Volume 6.6 L 6.9-10.8 fL Neutrophils (%) (Auto) 83.9 H 37.0-80.0 % Lymphocytes (%) (Auto) 8.4 L 10.0-50.0 % Monocytes (%) (Auto) 6.7 0.0-12.0 % Eosinophils (%) (Auto) 0.4 0.0-7.0 % Basophils (%) (Auto) 0.6 0.0-2.0 % Neutrophils # (Auto) 9.5 H 1.6-8.6 10 ^3/uL Lymphocytes # (Auto) 1.0 0.4-5.4 10 ^3/uL Monocytes # (Auto) 0.8 0-1.3 10 ^3/uL Eosinophils # (Auto) 0 0-0.8 10 ^3/uL Basophils # (Auto) 0.1 0-0.2 10 ^3/uL Nucleated Red Blood Cells 0.2 % Sodium Level 130 L 136-145 mmol/L Potassium Level 4.8 3.5-5.1 mmol/L Chloride Level 96 L 98-107 mmol/L Carbon Dioxide Level 23 20-31 mmol/L Anion Gap 11 5-15 Blood Urea Nitrogen 25 H 9-23 mg/dL Creatinine 3.85 H 0.550-1.02 mg/dL Glomerular Filtration Rate Calc 12 >90 mL/min BUN/Creatinine Ratio 6.5 L 10.0-20.0 Serum Glucose 83 74-106 mg/dL Lactic Acid Level 0.9 0.4-2.0 mmol/L Calcium Level 15.3 *H 8.7-10.4 mg/dL Total Bilirubin 0.3 0.2-1.0 mg/dL Aspartate Amino Transferase (AST) 33 13-40 U/L Alanine Aminotransferase (ALT) 14 7-40 U/L Alkaline Phosphatase 105 46-116 U/L B-Type Natriuretic Peptide 1137.31 0-100 pg/mL Total Protein 8.1 5.7-8.2 g/dL Albumin 3.2 3.2-4.8 g/dL Assessment/Plan Assessment/Plan Assessment Fluid overload End-stage renal disease Electrolyte imbalance Hypertension Plan Admit the patient to [facility] to the hospitalist Nephrology consultation IV Lasix Resume home medications Continue treatment per orders. Plan discussed with: Patient My Orders Orders - JOHNNY QUEEN [facility] Procedure Category Date Status Time Furosemide Injection PHA 10/27/24 Logged (Lasix Injection) 19:30 *Dr. [facility] CONS 10/27/24 Transmitted -[place] 19:16 Amlodipine Tablet PHA 10/28/24 Logged (Norvasc Tablet) 10:00 Basic Metabolic Panel LAB 10/28/24 Verified 04:00 Admit ADMIT 10/27/24 Transmitted 19:16 Renal DIET 10/28/24 Transmitted Standard(2gna,3gk,Lopho) Breakfast Ondansetron Hcl PHA 10/27/24 Logged (Zofran) 19:30 Complete Blood Count LAB 10/28/24 Verified 04:00 Echo 2d Mode Cardiac US 10/27/24 Logged DOP 19:16 Condition: Stable ESTRELLA 10/27/24 In Process 19:16 Acetaminophen Tablet PHA 10/27/24 Logged (Tylenol Tablet) 19:30 Bedrest With Bathroom ESTRELLA 10/27/24 In Process Privileg 19:16 Date of Service: Oct 27, 2024 Billing Provider: JOHNNY QUEEN Common Visit Codes: [id number] INP/OBS CARE (HIGH) JOHNNY QUEEN Oct 27, 2024 19:27
[2024-10-27] MEDS ORDERED: ONDANSETRON HCL 4 MG/2 ML VIAL IV PRN (19:30)
[2024-10-27] MEDS: FUROSEMIDE 40 MG/4 ML VIAL IV ONE ×2 (20:49→21:00)
[2024-10-27 21:19] VITALS: PULSE 72; RESP 16; O2SAT 97
[2024-10-27 23:17] VITALS: BP 136/59; PULSE 73; RESP 17; TEMP 97.6; O2SAT 93
[2024-10-27 23:30] VITALS: BP 136/59; PULSE 73; RESP 17; TEMP 97.6; O2SAT 93
[2024-10-28] VITALS (7 sets, daily range): BP systolic 91–134; BP diastolic 49–61; PULSE 61–85; RESP 16–18; TEMP 97.6–98.2; O2SAT 90–94
[2024-10-28] MEDS ORDERED: PNEUMOCOCCAL VACC POLYS 25 MCG/0.5 ML VIAL IM ONE (02:30)
[2024-10-28] MEDS ORDERED: MID10T GT (02:33)
[2024-10-28] MEDS ORDERED: ONDA-155 PO (02:33)
[2024-10-28] MEDS: ACETAMINOPHEN 325 MG TAB PO PRN (03:08)
[2024-10-28 07:09] LABS: Basophils # (auto) 0.1 10 ^3/uL (0-0.2); Basophils % (auto) 0.5 % (0.0-2.0); Eosinophils # (auto) 0 10 ^3/uL (0-0.8); Eosinophils % (auto) 0.2 % (0.0-7.0); Hematocrit 25.8 % (36.0-46.0); Hemoglobin 8.8 g/dL (12.2-16.2); Lymphocytes # (auto) 0.9 10 ^3/uL (0.4-5.4); Lymphocytes % (auto) 6.6 % (10.0-50.0); Mean Corpuscular Volume 91.1 fL (80.0-100.0); Monocytes # (auto) 0.9 10 ^3/uL (0-1.3); Monocytes % (auto) 6.5 % (0.0-12.0); Neutrophils # (auto) 11.7 10 ^3/uL (1.6-8.6); Neutrophils % (auto) 86.2 % (37.0-80.0); Nucleated Red Blood Cells % 0.2 %; Platelet Count (auto) 150 10^3/uL (140-450); Red Blood Cells 2.83 10^6/uL (4.0-5.20); Red Cell Distribution Width 16.4 % (11.8-14.3); White Blood Cell 13.5 10^3/uL (4.4-10.8)
[2024-10-28 07:14] LABS: Chloride 96 mmol/L (98-107); Potassium 5.1 mmol/L (3.5-5.1); Sodium 128 mmol/L (136-145)
[2024-10-28 07:15] LABS: Anion Gap 8 (5-15); Carbon Dioxide 24 mmol/L (20-31)
[2024-10-28 07:20] LABS: BUN/Creatinine Ratio 6.9 (10.0-20.0); Blood Urea Nitrogen 30 mg/dL (9-23); Glucose 95 mg/dL (74-106)
[2024-10-28 07:23] LABS: Calcium 15.1 mg/dL (8.7-10.4)
[2024-10-28] MEDS ORDERED: SODIUM CHL 0.9% 1000 ML BAG XX ONE (08:00)
[2024-10-28] MEDS: amLODIPine BESYLATE 5 MG TAB PO SCH (09:31)
[2024-10-28] MEDS: ASPirin 81 mg TAB PO SCH (09:31)
--- NOTE | 2024-10-28 12:21 | DVHINCON2 ---
Date of service: Oct 28, [address] Welsh Reason for Consultation hypercalcemia History of Present Illness 69-year-old white female past medical history of end-stage renal disease newly started with recent diagnosis of multiple myeloma not started on chemotherapy yet. Patient presents to the hospital after several missed dialysis treatments. She was noted to have a calcium level of 15.0. Nephrology consulted for acute management Past Medical History AFib, myeloma, end-stage renal disease, mi, thyroid disease Allergies: Coded Allergies: NO KNOWN ALLERGIES (Unverified , 09/16/24) Home Meds Active Scripts Calcitonin ([place]) (Calcitonin [place]) 200 Unit/Act Spr, 200 UNIT NA DAILY for 14 Days, #10 BOTTLE 1 SPRAY INTO ALTERNATE NOSTRIL DAILY Prov:KAITLYNN MAJOR RESIDENT 09/23/24 Amiodarone HCl (Amiodarone Hydrocloride) 200 Mg Tab, 200 MG PO BID for 30 Days, #60 TAB Prov:KAITLYNN MAJOR RESIDENT 09/23/24 Methimazole (Methimazole) 5 Mg Tab, 5 MG PO TID for 30 Days, #90 TAB Prov:KAITLYNN MAJOR RESIDENT 09/23/24 Reported Medications Ondansetron HCl (Ondansetron) 4 Mg Tab, 4 MG PO, TAB 10/28/24 Midodrine HCl (Midodrine HCl) 10 Mg Tab, 10 MG GT, TAB 10/28/24 Omeprazole (Gnp Omeprazole) 20 Mg Tab, 20 MG PO, TAB 09/21/24 Current Medications Current Medications Medications (Trade) Dose Ordered Sig/Juli Route PRN Reason Start Time Stop Time Status Last Admin Amlodipine Besylate (Norvasc Tablet) 5 mg DAILY PO 10/28/24 10:00 Ondansetron HCl (Zofran) 4 mg Q4HP PRN IV NAUSEA / VOMITING 10/27/24 19:30 Acetaminophen (Tylenol Tablet) 650 mg Q6HP PRN PO PAIN SCALE 1-3 OR TEMP>100.4 10/27/24 19:30 10/28/24 03:08 Aspirin 81 mg DAILY PO 10/28/24 10:00 Atorvastatin Calcium (Lipitor) 10 mg HS PO 10/28/24 22:00 Family History: Alcoholism G8 FATHER Cardiovascular disease PATERNAL GRANDFATHER Cerebrovascular accident (CVA) Diabetes mellitus MATERNAL GRANDMOTHER FH: breast cancer G8 MOTHER FH: dementia G8 MOTHER Review of Systems Weakness H&P Exam Vital Signs/I&O Vital Sign Date Time Temp Pulse Resp B/P (MAP) Pulse Ox O2 Delivery O2 Flow Rate FiO2 10/28/24 09:00 98.2 77 16 114/56 (75) 94 98.2 10/28/24 08:00 Room Air* 0 21 Intake and Output 10/27/24 10/28/24 19:00 07:00 Intake Total 225 ml Balance 225 ml Intake Oral 225 ml # Voids 1 Physical Exam Elderly white female Appears in distress complaining of hip discomfort. Abdomen is soft No pitting edema Regular rate Tunneled dialysis catheter Labs/Diagnostic Data Labs/Diagnostic Data Laboratory Tests Test 10/28/24 06:33 10/27/24 20:44 10/27/24 18:34 10/27/24 17:05 Range/Units White Blood Count 13.5 H 11.3 H 4.4-10.8 10^3/uL Red Blood Count 2.83 L 3.12 L 4.0-5.20 10^6/uL Hemoglobin 8.8 L 9.4 L 12.2-16.2 g/dL Hematocrit 25.8 L 28.5 L 36.0-46.0 % Mean Corpuscular Volume 91.1 91.4 80.0-100.0 fL Mean Corpuscular Hemoglobin 31.0 30.0 28.0-32.0 pg Mean Corpuscular Hemoglobin Concent 34.0 32.8 32.0-36.0 g/dL Red Cell Distribution Width 16.4 H 16.8 H 11.8-14.3 % Platelet Count 150 165 140-450 10^3/uL Mean Platelet Volume 6.7 L 6.6 L 6.9-10.8 fL Neutrophils (%) (Auto) 86.2 H 83.9 H 37.0-80.0 % Lymphocytes (%) (Auto) 6.6 L 8.4 L 10.0-50.0 % Monocytes (%) (Auto) 6.5 6.7 0.0-12.0 % Eosinophils (%) (Auto) 0.2 0.4 0.0-7.0 % Basophils (%) (Auto) 0.5 0.6 0.0-2.0 % Neutrophils # (Auto) 11.7 H 9.5 H 1.6-8.6 10 ^3/uL Lymphocytes # (Auto) 0.9 1.0 0.4-5.4 10 ^3/uL Monocytes # (Auto) 0.9 0.8 0-1.3 10 ^3/uL Eosinophils # (Auto) 0 0 0-0.8 10 ^3/uL Basophils # (Auto) 0.1 0.1 0-0.2 10 ^3/uL Nucleated Red Blood Cells 0.2 0.2 % Sodium Level 128 L 130 L 136-145 mmol/L Potassium Level 5.1 4.8 3.5-5.1 mmol/L Chloride Level 96 L 96 L 98-107 mmol/L Carbon Dioxide Level 24 23 20-31 mmol/L Anion Gap 8 11 5-15 Blood Urea Nitrogen 30 H 25 H 9-23 mg/dL Creatinine 4.34 H 3.85 H 0.550-1.02 mg/dL Glomerular Filtration Rate Calc 10 12 >90 mL/min BUN/Creatinine Ratio 6.9 L 6.5 L 10.0-20.0 Serum Glucose 95 83 74-106 mg/dL Calcium Level 15.1 *H 15.3 *H 8.7-10.4 mg/dL Troponin I High Sensitivity 27 30 30 </=34 ng/L Lactic Acid Level 0.9 0.4-2.0 mmol/L Total Bilirubin 0.3 0.2-1.0 mg/dL Aspartate Amino Transferase (AST) 33 13-40 U/L Alanine Aminotransferase (ALT) 14 7-40 U/L Alkaline Phosphatase 105 46-116 U/L B-Type Natriuretic Peptide 1137.31 0-100 pg/mL Total Protein 8.1 5.7-8.2 g/dL Albumin 3.2 3.2-4.8 g/dL Assessment End-stage renal disease on hemodialysis Hypertension Hypercalcemia Anemia due to chronic kidney disease Multiple myeloma Noncompliance with medical therapy Emergent hemodialysis treatment today due to elevated calcium level. Recommend compliance with outpatient medications Recommend follow-up with Hematology Oncology epogen today Rest of care as per primary medical team. Plan discussed with: Patient ELVIS RAGSDALE MD Oct 28, 2024 12:21
[2024-10-28] MEDS: EPOETIN ALFA-EPBX 10,000 UNIT/1ML VIAL SC ONE (15:39)
[2024-10-28 15:52] LABS: Chloride 99 mmol/L (98-107)
[2024-10-28 15:53] LABS: Anion Gap 8 (5-15); Carbon Dioxide 29 mmol/L (20-31)
[2024-10-28 15:58] LABS: BUN/Creatinine Ratio 4.7 (10.0-20.0); Blood Urea Nitrogen 10 mg/dL (9-23); Glucose 95 mg/dL (74-106)
[2024-10-28 16:04] LABS: Calcium 11.7 mg/dL (8.7-10.4); Potassium 3.4 mmol/L (3.5-5.1); Sodium 136 mmol/L (136-145)
--- NOTE | 2024-10-28 16:33 | DVHDS2 ---
Discharge Summary Date of Admission Oct 27, 2024 at 19:16 Date of Discharge: Oct 28, 2024 Admitting Diagnosis Missed Hemodialysis Labs/Diagnostic Data: Laboratory Results Test 10/28/24 15:20 10/28/24 06:33 10/27/24 20:44 10/27/24 17:05 Sodium Level 136 mmol/L (136-145) Potassium Level 3.4 mmol/L (3.5-5.1) Chloride Level 99 mmol/L (98-107) Carbon Dioxide Level 29 mmol/L (20-31) Anion Gap 8 (5-15) Blood Urea Nitrogen 10 mg/dL (9-23) Creatinine 2.11 mg/dL (0.550-1.02) Glomerular Filtration Rate Calc 25 mL/min (>90) BUN/Creatinine Ratio 4.7 (10.0-20.0) Serum Glucose 95 mg/dL (74-106) Calcium Level 11.7 mg/dL (8.7-10.4) White Blood Count 13.5 10^3/uL (4.4-10.8) Red Blood Count 2.83 10^6/uL (4.0-5.20) Hemoglobin 8.8 g/dL (12.2-16.2) Hematocrit 25.8 % (36.0-46.0) Mean Corpuscular Volume 91.1 fL (80.0-100.0) Mean Corpuscular Hemoglobin 31.0 pg (28.0-32.0) Mean Corpuscular Hemoglobin Concent 34.0 g/dL (32.0-36.0) Red Cell Distribution Width 16.4 % (11.8-14.3) Platelet Count 150 10^3/uL (140-450) Mean Platelet Volume 6.7 fL (6.9-10.8) Neutrophils (%) (Auto) 86.2 % (37.0-80.0) Lymphocytes (%) (Auto) 6.6 % (10.0-50.0) Monocytes (%) (Auto) 6.5 % (0.0-12.0) Eosinophils (%) (Auto) 0.2 % (0.0-7.0) Basophils (%) (Auto) 0.5 % (0.0-2.0) Neutrophils # (Auto) 11.7 10 ^3/uL (1.6-8.6) Lymphocytes # (Auto) 0.9 10 ^3/uL (0.4-5.4) Monocytes # (Auto) 0.9 10 ^3/uL (0-1.3) Eosinophils # (Auto) 0 10 ^3/uL (0-0.8) Basophils # (Auto) 0.1 10 ^3/uL (0-0.2) Nucleated Red Blood Cells 0.2 % Troponin I High Sensitivity 27 ng/L (</=34) Lactic Acid Level 0.9 mmol/L (0.4-2.0) Total Bilirubin 0.3 mg/dL (0.2-1.0) Aspartate Amino Transferase (AST) 33 U/L (13-40) Alanine Aminotransferase (ALT) 14 U/L (7-40) Alkaline Phosphatase 105 U/L (46-116) B-Type Natriuretic Peptide 1137.31 pg/mL (0-100) Total Protein 8.1 g/dL (5.7-8.2) Albumin 3.2 g/dL (3.2-4.8) Other Laboratory Tests 10/28/24 15:20 10/28/24 06:33 Brief Hx & Hospital Course: Patient is a 69-year-old female who presented to hospital after missing her hemodialysis. Patient had hypercalcemia which has improved after dialysis today. Patient has a history of multiple myeloma is scheduled to begin chemotherapy next week with Dr. Lewis. Patient counseled extensively to continue hemodialysis per schedule. Condition at Discharge: Poor Final Diagnosis/Problems List ESRD on Missed Hemodialysis Hypercalcemia Multiple Myeloma Discharge Disposition: Home Discharge Instruct/Medications Diet: Renal Activity: Light activity Follow Up/Referral: Dr. Lewis Discharge Statement: "Patient was advised to return to the ER or call 911 if any headaches, dizziness, shortness of breath, chest pain, abdominal pain, bleeding, fevers, or worsening of medical condition. Patient was counseled about treatment plan, medications, possible side effects, patientverbalized understanding. All questions were answered to the best of my ability. This discharge took greater then 30 minutes in planning, reviewing documentation, counseling the patient, and discussing with other team members." ASSESSMENT ASSESSMENT Assessment Date of Service: Oct 28, 2024 Billing Provider: AJNELLE FULTON MD Common Visit Codes: [id number]/OBS DISCH DAY >30min JANELLE FULTON MD Oct 28, 2024 16:33
[2024-10-28] MEDS ORDERED: ATORVASTATIN 20 MG TAB PO SCH (22:00)
--- NOTE | 2024-10-29 13:45 | ECG ---
[facility] Test Date: 2024-10-27 Test Time: 16:15:21 Pat Name: PALMIRA VEE Department: er Room: 0277 A Gender: F Evp: vasiliy : 1955 Requested By: LINCOLN MOSER Order Number: [id number] Reading MD: Marc Patterson Measurements Intervals [place] Rate: 69 P: 74 FL: 158 QRS: 99 QRSD: 105 T: 14 QT: 412 QTc: 442 Interpretive Statements Sinus rhythm ROGELIO, consider biatrial enlargement Lateral infarct, acute Electronically Signed On 10-29-2024 16:14:48 PST by Marc Patterson Please click the below link to view image of tracing.
[2024-10-30 10:54] LABS: Hepatitis A Ab IgM Negative
[2024-10-30 10:55] LABS: Hepatitis B Core IgM Negative (Negative); Hepatitis B Surface Antigen Negative (Negative); Hepatitis C Antibody Negative (Negative)
[2024-10-30 10:56] LABS: Hepatitis B Surface Antigen Negative (Negative); Hepatitis C Antibody Negative (Negative)
== END 2024-10-28 18:20 | disposition home or self-care (01) | DRG 640 ==
LOC: ER 14:54 → OVERFLOW 19:16 → WEST WING 19:22
PROVIDERS: ADMIT Nurse Practitioner; ATTEND Internal Medicine
PROC: 5A1D70Z Performance of Urinary Filtration, Intermittent, Less than 6 Hours Per Day (ICD-10-PCS; principal; 2024-10-28)
DX: E87.70 Fluid overload, unspecified (principal); N18.6 End stage renal disease; I12.0 Hypertensive chronic kidney disease with stage 5 chronic kidney disease or end stage renal disease; C90.00 Multiple myeloma not having achieved remission; E83.52 Hypercalcemia; E87.1 Hypo-osmolality and hyponatremia; D63.1 Anemia in chronic kidney disease; I48.0 Paroxysmal atrial fibrillation; K21.9 Gastro-esophageal reflux disease without esophagitis; R79.89 Other specified abnormal findings of blood chemistry; I25.2 Old myocardial infarction; Z82.49 Family history of ischemic heart disease and other diseases of the circulatory system; Z82.3 Family history of stroke; Z80.3 Family history of malignant neoplasm of breast; Z83.3 Family history of diabetes mellitus; Z91.158 Patient's noncompliance with renal dialysis for other reason; Z91.199 Patient's noncompliance with other medical treatment and regimen due to unspecified reason; Z99.2 Dependence on renal dialysis
CPT/HCPCS: 36415; 71045; 80048; 80053; 80074; 83605; 83880; 84484; 85025; 86803; 87081; 87340; 90935; 93005; 96374; 97163; 99291; G0378; J1642

== ENCOUNTER 2024-10-31 10:57 | Emergency (ER) | payer OTHER ==
[~2024-10-31 10:57] MED LIST changes: +MID10T GT; +ONDA-155 PO
[2024-10-31 11:00] VITALS: PULSE 70; RESP 12; O2SAT 76
[2024-10-31] MEDS ORDERED: EPINEPHrine HCL 250 ML IV ONE (11:03)
[2024-10-31 11:05] VITALS: TEMP 92.8
[2024-10-31] MEDS: EPINEPHrine HCL 250 ML IV SCH (11:05)
--- NOTE | 2024-10-31 11:19 | ED.PDOC ---
CPR-HPI HPI Comments 69Y F with PMHx multiple myeloma, ESRD on HD, HTN, Afib, anemia, SC, thyroid disease, and UTI presents to ED via EMS for chief complaint CPR. Per EMS, pt's called 911 at 0955 and was told to begin compressions as pt was last seen normal at 0930. EMS arrived on scene at 1005 where they resumed compressions and achieved ROSC after 20 mins. EMS gave pt push dose of epi and BS was 245. Upon ED arrival, pt was noted to have a 20G IV on upper extremity and i-gel. Pt had pulses on arrival to ED but once the pt was transferred to bed, no pulses were felt. CPR was initiated. Per EMS, estimated downtime prior to ED arrival was 50mins. Per EMS, pt's is a poor historian but mentioned that the pt's activity level had decreased over the last few days. Previous admissions: 10/28/2024 dx hypercalcemia 10/21/2024 dx general weakness and hypercalcemia 10/13/2024 dx acute metabolic encephalopathy 10/08/2024 dx general weakness 09/23/2024 dx severe hypercalcemia, metastatic multiple myeloma Chief Complaint: CPR Time Seen by MD: 11:00 Primary Care Provider: ROYA Hogan Notes: Medications, Allergies Allergies: Coded Allergies: NO KNOWN ALLERGIES (Unverified , 09/16/24) Home Meds Active Scripts Calcitonin ([place]) (Calcitonin [place]) 200 Unit/Act Spr, 200 UNIT NA DAILY for 14 Days, #10 BOTTLE 1 SPRAY INTO ALTERNATE NOSTRIL DAILY Prov:KAITLYNN MAJOR RESIDENT 09/23/24 Amiodarone HCl (Amiodarone Hydrocloride) 200 Mg Tab, 200 MG PO BID for 30 Days, #60 TAB Prov:KAITLYNN MAJOR RESIDENT 09/23/24 Methimazole (Methimazole) 5 Mg Tab, 5 MG PO TID for 30 Days, #90 TAB Prov:KAITLYNN MAJOR RESIDENT 09/23/24 Reported Medications Ondansetron HCl (Ondansetron) 4 Mg Tab, 4 MG PO, TAB 10/28/24 Midodrine HCl (Midodrine HCl) 10 Mg Tab, 10 MG GT, TAB 10/28/24 Omeprazole (Gnp Omeprazole) 20 Mg Tab, 20 MG PO, TAB 09/21/24 Information Source: Emergency Med Personnel Mode of Arrival: EMS Brought in by: EMS Timing: Minutes Duration: Total time prior hopital: (50mins) Onset: Witnessed Available Hx: Other Treatment: CPR, Intubation, IV, Epinephrine Response: Transient return of pulse Associated signs and symptoms: Unknown Past Medical History PAST MEDICAL HISTORY: AFIB, Anemia, Cancer, CKF, SC, Thyroid, UTI'S Surgical History: Denies all surgeries 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: Denies all FLAG 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 COACH Hx Family History Family History: Unknown Social History Smoker: Non-Smoker Alcohol: Denies ETOH Use Drugs: Marijuana Lives In: Home Unable to Obtain due to: Medical Urgency, Intubated Physical Exam General Appearance: Severe Distress HEENT: Other (fixed dilated OU, no gag reflex) Neck: Other Respiratory: Crackles, Rales Cardiovascular: Normal Peripheral Pulses, Regular Rate/Rhythm Breast Exam: Deferred Gastrointestinal: Non Tender, Soft Genitalia: Deferred Pelvic: Deferred Rectal: Deferred Extremities: Pedal edema Neurologic: None, Sensory Deficit Cerebellar Function: NOT DONE Reflexes: NOT DONE Skin: NOT DONE ( ) Lymphatic: NOT DONE Was a procedure done? Was a procedure done?: No Differential Dx CPR Differential Diagnosis: Cardiopulmonary arrest, Electrolyte disorder, Heart Block, Myocardial Infarction X-Ray, Labs, Meds, VS Vital Signs Date Time Temp Pulse Resp B/P (MAP) Pulse Ox O2 Delivery O2 Flow Rate FiO2 10/31/24 11:53 69 30 67/28 (41) 93 100 10/31/24 11:06 68 Lab Test 10/31/24 11:14 10/31/24 11:10 Range/Units Blood Gas Specimen Type Arterial Blood Gas Sample Site Right fermoral Blood Gas Patient Temperature 37.0 Arterial Blood Date Drawn Arterial Blood pH 6.897 *L 7.350-7.450 Arterial Blood Partial Pressure CO2 111.5 *H 32.0-45.0 mmHg Arterial Blood Partial Pressure O2 93.3 83.0-108.0 mmHg Arterial Blood HCO3 21.2 21.0-28.0 mmol/L Arterial Blood Oxygen Saturation 90.1 L 94.0-98.0 % Arterial Blood Base Excess -11.0 L -2.0-3.0 mmol/L Arterial Blood Oxyhemoglobin 88.0 L 94.0-98.0 % Arterial Blood Carboxyhemoglobin 1.2 0.5-1.5 % Arterial Blood Methemoglobin 1.1 0.0-1.5 % Mitesh Test Modified Blood Gas Total Hemoglobin 6.40 *L 12.0-16.0 g/dL Blood Gas Liter Flow 15.00 Blood Gas Modality Resus bag FiO2 % 100.[address] lopez Blood Gas Critical Value Read Back Yes Blood Gas Notified Whom Dr. lopez Blood Gas Notified Time [id number] Blood Gas Notified By jonas Dean rt White Blood Count 7.6 # 4.4-10.8 10^3/uL Red Blood Count 1.85 L 4.0-5.20 10^6/uL Hemoglobin 5.8 #*L 12.2-16.2 g/dL Hematocrit 18.7 #L 36.0-46.0 % Mean Corpuscular Volume 100.8 #H 80.0-100.0 fL Mean Corpuscular Hemoglobin 31.1 28.0-32.0 pg Mean Corpuscular Hemoglobin Concent 30.9 L 32.0-36.0 g/dL Red Cell Distribution Width 18.7 H 11.8-14.3 % Platelet Count 92 L 140-450 10^3/uL Mean Platelet Volume 7.0 6.9-10.8 fL Neutrophils (%) (Auto) 37.0-80.0 % Lymphocytes (%) (Auto) 10.0-50.0 % Monocytes (%) (Auto) 0.0-12.0 % Basophils (%) (Auto) 0.0-2.0 % Neutrophils # (Auto) 1.6-8.6 10 ^3/uL Lymphocytes # (Auto) 0.4-5.4 10 ^3/uL Monocytes # (Auto) 0-1.3 10 ^3/uL Differential Total Cells Counted 100.0 100 Neutrophils % (Manual) 69 37.0-80.0 Band Neutrophils % (Manual) 6 Lymphocytes % (Manual) 14 10.0-50.0 Monocytes % (Manual) 11 0-12 Eosinophils % (Manual) 0 0-7 Basophils % (Manual) 0 0.0-2.0 Metamyelocytes % (manual) 0 Myelocytes % (Manual) 0 Promyelocytes % (Manual) 0 Blast Cells % (Manual) 0 Nucleated Red Blood Cells 8.0 % Reactive Lymphocytes 0 Platelet Estimate Decreased Prothrombin Time 15.6 H 9.3-11.8 sec Prothrombin Time INR 1.52 H 0.9-1.15 Activated Partial Thromboplast Time 59.1 H 24.5-34.5 SEC D-Dimer, Quantitative 15.46 H 0.0-0.49 mg/L FEU Sodium Level 136 136-145 mmol/L Potassium Level 5.6 #*H 3.5-5.1 mmol/L Chloride Level 99 98-107 mmol/L Carbon Dioxide Level 22 20-31 mmol/L Anion Gap 15 5-15 Blood Urea Nitrogen 21 9-23 mg/dL Creatinine 3.33 #H 0.550-1.02 mg/dL Glomerular Filtration Rate Calc 14 >90 mL/min BUN/Creatinine Ratio 6.3 L 10.0-20.0 Serum Glucose 254 H 74-106 mg/dL Calcium Level 11.5 H 8.7-10.4 mg/dL Magnesium Level 2.5 1.6-2.6 mg/dL Total Bilirubin < 0.2 L 0.2-1.0 mg/dL Aspartate Amino Transferase (AST) 434 H 13-40 U/L Alanine Aminotransferase (ALT) 189 H 7-40 U/L Alkaline Phosphatase 101 46-116 U/L Troponin I High Sensitivity 2535 *H </=34 ng/L B-Type Natriuretic Peptide 1962.49 0-100 pg/mL Total Protein 5.5 L 5.7-8.2 g/dL Albumin 2.0 L 3.2-4.8 g/dL Time of 1ST Reevaluation: 11:30 Reevaluation 1ST: Unchanged Patient Education/Counseling: Pt Unresponsive Family Education/Counseling: No Family Present Departure 1 Departure Time of Disposition: 12:55 Impression: Primary Impression: Generalized weakness Additional Impressions: Anemia STEMI (ST elevation myocardial infarction) End-stage renal disease on hemodialysis Disposition: 20 Condition: Poor Critical Care Note Critical Care Time?: Yes (90 min-critical care time only) Critical care comment: This 69-year-old female presents to emergency room in cardiac arrest. Per family, she has had a 45 day history of increasing shortness of breath. This morning, he left for approximately 30 minutes, came back and found her apneic. 911 was called and CPR was initiated. EMS continued CPR and regained Ross. Here, the patient briefly lost Ross. However, we are able to get back a pulse. The patient had a a high gel. This was replaced with an ET tube without difficulty. I met with the patient's spouse. He was informed that the patient was fixed and dilated had no gag reflex and was otherwise unresponsive. He stated that her wishes would be that she we withdraw care. Levophed and the ventilator were removed. Patient was declared at approximately 12:55 p.m.. For exact time details please see nursing notes. He was also noted the patient had a profoundly elevated troponin Heart Score Heart Score: Heart Score Response (Comments) Value History N/A 0 EKG N/A 0 Age N/A 0 Risk Factors N/A 0 Troponin N/A 0 Total 0 Stability Stability form required: No I personally scribed for ELI LOPEZ MD ([email or web address]) on 10/31/24 at 11:19. Electronically submitted by Tanisha Tidwell (Nu-Pulse). I personally scribed for ELI LOPEZ MD ([email or web address]) on 10/31/24 at 11:28. Electronically submitted by Tanisha Tidwell (Nu-Pulse). I personally scribed for ELI LOPEZ MD ([email or web address]) on 10/31/24 at 11:32. Electronically submitted by Tanisha Tidwell (Nu-Pulse). ELI LOPEZ MD Oct 31, 2024 11:19
[2024-10-31 11:40] LABS: White Blood Cell 7.6 10^3/uL (4.4-10.8)
[2024-10-31 11:41] LABS: Hematocrit 18.7 % (36.0-46.0); Mean Corpuscular Hemoglobin 31.1 pg (28.0-32.0); Mean Corpuscular Hgb Conc. 30.9 g/dL (32.0-36.0); Mean Corpuscular Volume 100.8 fL (80.0-100.0); Platelet Count (auto) 92 10^3/uL (140-450); Red Blood Cells 1.85 10^6/uL (4.0-5.20); Red Cell Distribution Width 18.7 % (11.8-14.3)
[2024-10-31 11:53] VITALS: O2SAT 93
[2024-10-31 11:57] LABS: Alkaline Phosphatase 101 U/L (46-116); Anion Gap 15 (5-15); BUN/Creatinine Ratio 6.3 (10.0-20.0); Blood Urea Nitrogen 21 mg/dL (9-23); Carbon Dioxide 22 mmol/L (20-31); Chloride 99 mmol/L (98-107); Hemoglobin 5.8 g/dL (12.2-16.2); Magnesium 2.5 mg/dL (1.6-2.6); Sodium 136 mmol/L (136-145)
[2024-10-31 11:58] LABS: Basophils % (manual) 0 (0.0-2.0); Blast Cells 0; Eosinophils % (manual) 0 (0-7); Metamyelocytes % 0; Myelocytes % 0; Promyelocytes % 0; Reactive Lymphocytes 0
--- NOTE | 2024-10-31 12:01 | DVH ---
CHEST RADIOGRAPH Indication: S/P INTUBATION Technique: Single frontal view of the chest was obtained Comparison: XY CHEST PORTABLE on DOS: 10/27/24, XY CHEST PORTABLE on DOS: 10/17/24, XY CHEST PORTABLE on DOS: 10/12/24, XY CHEST XRAY 1 VIEW on DOS: 10/06/24, XY CHEST PORTABLE on DOS: 09/21/24 FINDINGS: Lines and Tubes: ENDOTRACHEAL TUBE 2 CM FROM THE MOHSEN. Side port of NG tube at the GE junction. Ad vanced by 10 cm. Lungs: Increased interstitial opacities. Pleura: No effusion. No pneumothorax. Cardiomediastinal contours: Cardiomegaly. Bones: No acute osseous abnormality. IMPRESSION: Cardiomegaly with CHF. Side port of NG tube at the GE junction. Advanced by 10 cm.
[2024-10-31 12:06] LABS: Alanine Aminotransferase 189 U/L (7-40); Aspartate Aminotransferase 434 U/L (13-40); Bilirubin, Total < 0.2 mg/dL (0.2-1.0); Calcium 11.5 mg/dL (8.7-10.4); Glucose 254 mg/dL (74-106); Total Protein 5.5 g/dL (5.7-8.2)
[2024-10-31 12:09] LABS: Potassium 5.6 mmol/L (3.5-5.1)
[2024-10-31 12:10] LABS: INR 1.52 (0.9-1.15); Partial Thromboplastin Time 59.1 SEC (24.5-34.5); Prothrombin Time 15.6 sec (9.3-11.8)
[2024-10-31 12:27] LABS: Band Neutrophils % (manual) 6; Lymphocytes % (manual) 14 (10.0-50.0); Monocytes % (manual) 11 (0-12)
[2024-10-31 12:32] LABS: Platelet Estimate Decreased
--- NOTE | 2024-10-31 12:41 | DVH ---
EXAM: CT HEAD WITHOUT CONTRAST INDICATION: S/P CPR TECHNIQUE: CT of the head without intravenous contrast. Coronal and sagittal reformatted images are submitted. Radiation Dose : 1. Head: CT Dose: CTDI volume is 49.37 mGy. Dose-length product is 791.61 mGy*cm The dose indicators for CT are the volume Computed Tomography (CT) Dose Index (CTDIvol) and the Dose Length Product (DLP), and are measured in units of mGy and mGy-cm, respectively. These indicators are not patient dose, but values generated from the CT scanner acquisition factors. The report includes radiation exposure data for exposures received during this examination. All CT scans at this medical facility are performed using dose modulation techniques as appropriate to a performed exam including the following: Automated exposure control was utilized; adjustment of the MA and/or KV according to patient size; and use of iterative reconstruction technique. COMPARISON: CT HEAD WITHOUT CONTRAST on DOS: 10/12/24 FINDINGS: There is no evidence of acute intracranial hemorrhage, extra-axial collection, mass effect, midline s hift, herniation or hydrocephalus. The ventricles, sulci and cisterns are age appropriate. The camilo-white differentiation is intact. The visualized paranasal sinuses and mastoid air cells are clear. Multiple lytic lesions throughout the calvarium. The surrounding soft tissues are unremarkable. IMPRESSION: 1. No evidence of acute intracranial abnormality. 2. Multiple lytic lesions throughout the calvarium.
--- NOTE | 2024-10-31 12:52 | ECG ---
[facility] Test Date: 2024-10-27 Test Time: 15:19:31 Pat Name: PALMIRA VEE Department: ER Room: Gender: F Cherry Pitter: ABIOLA : 1955 Requested By: ELI HUNT Order Number: [id number] Reading MD: Measurements Intervals [place] Rate: 68 P: 70 WI: 162 QRS: 98 QRSD: 105 T: 3 QT: 403 QTc: 429 Interpretive Statements Sinus rhythm Right atrial enlargement Lateral infarct, acute Please click the below link to view image of tracing.
[2024-10-31 13:00] VITALS: BP 52/23; PULSE 60; RESP 20
--- NOTE | 2024-10-31 14:36 | RESUS ---
CODE BLUE ASSESSSMENT History of Events History of Events: BIBA WITH CPR IN PROGRESS. PER EMS PTS WITNESSED PT FALL TO THE GROUND. PTS BEGAN BYSTANDER CPR. UPON EMS ARRIVAL PT FOUND TO BE APNEIC AND ASYSTOLE. CPR CONTINUED BY EMS VIA AUTOPULSE. IO ESTABLISHED BY EMS. PT GOIVEN TWO ROUNDS OF EPI EN ROUTE. ROSC EN ROUTE BY EMS HOWEVER UPON EMS ARRIVAL TO ER PT LOST PULSES. UPON ARRIVAL PT IN FULL ARREST CPR VIA AUTO PULSE. PT BEING BAGGED WITH I-GEL BLS AIRWAY. PT PLACED IN ER BED 5 DR. AVILA, RT AND MULTIPLE ER STAFF MEMBERS @ BEDSIDE TO CONTINUE ACLS CARE. Initial Information Date: Oct 31, 2024 Time: 10:57 Location of Arrest: In Field Arrest Witnessed: Yes CPR started initial time: :55 CPR started by whom: Bystander Last seen well: 929 Pre-Hospital Care: ACLS Type of arrest: Cardiac Spontaneous Respirations: No Pulse Present: No Monitoring: ECG Crash Cart Opened and Supplies: Yes Airway Ventilation Breathing at Onset: Apneic Oxygen Delivery Method: Ambu-Bag Oxygen BVM WITH I-GEL IN PLACE Time of first Assisted Ventila: 10:07 Artificial Ventilation: Bag/Mask Intubation Time: 10:07 Intubation Size: Other (I-GEL) Intubated by: EMS Intubated orally: Yes Circulation Circulation #1: Time: 10:58 Pulse Rate (adult): 33 Circulation Comment: PEA Circulation #2: Time: 11:00 Pulse Rate (adult): 68 Circulation Comment: ROSC Procedure - IV Procedure - IV : IV Side: Left IV Location: Antecubital IV Catheter Type: Saline Lock IV Placed: In Hospital IV Gauge: 20 IV Line Care: Saline Flush Procedure - Intraosseous Time of intraosseous: 10:15 Site of Intraosseous: Tibia magali-medial Number of attempts for Intraos: 1 Comment: STARTED IN THE FIELD BY EMS Medications & Response Medications and Responses #1: Medication Time: 10:59 ADULT Medications Given ADULT: Epinephrine 1 mg Route of Administration: IV Medications and Responses #2: Medication Time: 10:59 ADULT Medications Given ADULT: Sodium Bacarbinate 50 meq Route of Administration: IV Medications and Responses #3: Medication Time: 11:01 ADULT Medications Given ADULT: Epinephrine 1 mg Route of Administration: IV Medications and Responses #4: Medication Time: 11:01 ADULT Medications Given ADULT: Atropine 1 mg Route of Administration: IV Pacing Pacer Pads Applied and Pacing: No Nurses Notes [place] Coma Scale Eye Opening: None (1) [place] Coma Scale Verbal: None (1) [place] Coma Scale Motor: None (1) [place] Total: 3 Pupil Reaction: Non Reactive Bedside Blood Glucose: 245 Time Code Ended Time Code Ended: 11:00 Post Arrest Status: Ventilated Outcome of code: Successful Family notified: Yes Code Team Present: KAITA SOSA EMT STUDENT SINGH KINCAID ROSC Time of ROSC: 11:00 KATIA DUBOIS Oct 31, 2024 14:35
--- NOTE | 2024-11-03 08:57 | ECG ---
[facility] Test Date: 2024-10-31 Test Time: 11:06:20 Pat Name: PALMIRA VEE Department: ED Room: Gender: F Research Psychologist: JOIE : 1955 Requested By: ELI HUNT Order Number: [id number] Reading MD: Measurements Intervals [place] Rate: 68 P: 0 W[place]: 0 QRS: 115 QRSD: 165 T: -38 QT: 514 QTc: 547 Interpretive Statements Junctional rhythm Nonspecific intraventricular conduction delay Repol abnrm, severe global ischemia (LM/MVD) Please click the below link to view image of tracing.
== END 2024-10-31 13:21 ==
LOC: ER 10:57 → EDBD 10:57 → ER 13:21
DX: R53.1 Weakness (principal); D64.9 Anemia, unspecified; I21.3 ST elevation (STEMI) myocardial infarction of unspecified site; E03.9 Hypothyroidism, unspecified; N18.6 End stage renal disease; I48.91 Unspecified atrial fibrillation; I25.2 Old myocardial infarction; Z87.440 Personal history of urinary (tract) infections; Z79.899 Other long term (current) drug therapy
CPT/HCPCS: 36415; 36600; 70450; 71045; 80053; 82805; 83735; 83880; 84484; 85007; 85027; 85379; 85610; 85730; 87070; 87205; 92950; 93005; 99291; J0171